=== PATIENT | male | born 1950 | race Caucasian/White ===

== ENCOUNTER 2018-02-23 16:45 | Emergency (ER) | payer MEDICARE, OTHER, SELFPAY ==
[2018-02-23 16:46] VITALS: BP 140/78; PULSE 67; RESP 16; TEMP 36.4; O2SAT 95; BMI 33.0
--- NOTE | 2018-02-23 16:49 | ED.ALLEREA ---
HPI - Allergic Reaction <Cathy Ross PA-C - Last Filed: 02/23/18 21:59> General Chief complaint: Allergic Reaction Stated complaint: right arm swollen bee sting Time Seen by Provider: 02/23/18 16:49 Source: patient Mode of arrival: ambulatory Limitations: no limitations History of Present Illness HPI narrative: This 67-year-old gentleman comes in due to wasp or hornet sting in the right hand about 5 hr ago. He states that he thought fly into his car and it stung him between his fingers. Since then, he has had increasing swelling in the hand and fingers moving up into the forearm. He states is also very itchy. He states that previously, he had a similar sting which cause swelling all the way up his arm and did not improve on its own even several days later, and he ended up needing to get a steroid shot for this. He denies any swelling elsewhere including any sensation of facial or mouth swelling. He states that he has some wheeze due to his asthma, but he does not feel short of breath or tight in the chest. He states it is difficult for him to use his hand due to swelling, but he denies any weakness or paresthesia. Denies any other complaints today. Related Data Home Medications Medication Instructions Recorded Confirmed fluticasone-salmeterol [Advair 1 puff INH BIDRT #0 11/18/10 02/23/18 Diskus] atorvastatin 40 mg tablet 40 mg PO BEDTIME 01/27/18 02/23/18 albuterol sulfate [ProAir HFA] 1 puff INHALATION PRN PRN 02/23/18 02/23/18 omeprazole 40 mg PO DAILY 02/23/18 02/23/18 telmisartan [Micardis] 80 mg PO BEDTIME 02/23/18 02/23/18 Allergies Allergy/AdvReac Type Severity Reaction Status Date / Time sulfamethoxazole Allergy Severe rash and Verified 02/23/18 16:46 [From ] swelling trimethoprim [From ] Allergy Severe rash and Verified 02/23/18 16:46 swelling Penicillins [PENICILLINS] Allergy Unknown rash and Verified 02/23/18 16:46 swelling shellfish derived AdvReac Mild Swelling Verified 02/23/18 16:46 of Lip/Tongue/Throat Review of Systems <Cathy Ross PA-C - Last Filed: 02/23/18 21:59> Review of Systems All systems reviewed & are unremarkable except as noted in HPI and below Exam <Cathy Ross PA-C - Last Filed: 02/23/18 21:59> Narrative Exam Narrative: GENERAL APPEARANCE: Patient sitting comfortably, in no distress. HEENT: PERRL, EOMI, normal oropharynx, no tongue or lip swelling NECK/THYROID: Neck supple LUNGS: Moderate generalized expiratory wheeze, no crackles, good AE. Speaks normally in complete sentences CV: Rate and rhythm regular without murmur, normal S1 and S2, no S3 or S4 DERMATOLOGIC: Right hand on the proximal lateral border of the right middle finger there is a tiny sting burak. The proximal hand is moderately edematous especially over the PIP joints to the wrist. There is some faint warm erythema on the forearm, non circumferential, extending to the mid forearm on the medial side MUSCULOSKELETAL: Strength is intact against resistance in all the right hand fingers. Skin Diver is slightly decreased secondary to edema. Full range of motion of the right wrist NEUROLOGIC: Alert and oriented, normal speech, and coordination. Initial Vital Signs Initial Vital Signs: Vital Signs Temperature 97.5 F L 02/23/18 16:46 Pulse Rate 67 02/23/18 16:46 Respiratory Rate 16 02/23/18 16:46 Blood Pressure 140/78 02/23/18 16:46 Pulse Oximetry 95 02/23/18 16:46 <Favian Gamez DO - Last Filed: 02/23/18 23:04> Initial Vital Signs Initial Vital Signs: Vital Signs Temperature 97.5 F L 02/23/18 16:46 Pulse Rate 67 02/23/18 16:46 Respiratory Rate 16 02/23/18 16:46 Blood Pressure 140/78 02/23/18 16:46 Pulse Oximetry 95 02/23/18 16:46 Course <Cathy Ross PA-C - Last Filed: 02/23/18 21:59> Additional Information: Patient declined nebulizer treatment while here stating that he he can do this at home and his asthma does not feel worse. He was given a single injection of Kenalog based on current reaction and the history described. He was not given antihistamine here due to needing to drive, but will get OTC Benadryl on the way home and start this. Orders Ordered: Discontinued Medications Triamcinolone (Kenalog-40) 40 mg IM NOW ONE Stop: 02/23/18 17:25 Last Admin: 02/23/18 17:31 Dose: 40 mg Vital Signs - 8 hr 02/23/18 16:46 Temperature 97.5 F L Pulse Rate 67 Respiratory Rate 16 Blood Pressure 140/78 Pulse Oximetry 95 <Favian Gamez DO - Last Filed: 02/23/18 23:04> Orders Ordered: Discontinued Medications Triamcinolone (Kenalog-40) 40 mg IM NOW ONE Stop: 02/23/18 17:25 Last Admin: 02/23/18 17:31 Dose: 40 mg Vital Signs - 8 hr 02/23/18 16:46 Temperature 97.5 F L Pulse Rate 67 Respiratory Rate 16 Blood Pressure 140/78 Pulse Oximetry 95 Discharge Plan Departure Patient Disposition: Home Clinical Impression: Accidental wasp sting Discharge Date/Time: 02/23/18 18:17 Interventions: ED Discharge Assessment Last Done: 02/23/18 18:17 Instructions: DI for Insect Bites and Stings Activity Restrictions/Additional Instructions: We have given you a steroid injection today to help with inflammation since you needed 1 last time you got a sting like this. This will help to calm your body's immune reaction. 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 You can continue this for the next 2 or 3 days. You can increase to 50 mg if needed, but remember this may make you sleepy and not to drive. You can also use [id number] Benadryl cream if you find that is as helpful. Please try to avoid scratching as this can lead to secondary infection. Monitor as we talked about for acutely spreading redness, swelling, pain, or more systemic symptoms such as facial swelling or difficulty breathing and return to the ED right away if any Prescriptions: No Action fluticasone-salmeterol [Advair Diskus] 500 MCG/50 MCG blister with device 1 puff INH BIDRT Qty: 0 RF: 0 telmisartan [Micardis] 80 mg tablet 80 mg PO BEDTIME RF: 0 omeprazole 20 mg capsule,delayed release(DR/EC) 40 mg PO DAILY RF: 0 albuterol sulfate [ProAir HFA] 90 mcg/actuation HFA aerosol inhaler 1 puff Inhalation PRN PRN (Reason: Shortness Of Breath) RF: 0 atorvastatin [Lipitor] 40 mg tablet 40 mg PO BEDTIME RF: 0 Referrals: Greta Garcia MD [Primary Care Provider] - <Favian Gamez DO - Last Filed: 02/23/18 23:04> Cosign ED Attending Mone Attestation: I was immediately available in the department for consultation. Documentation has been reviewed. I agree with assessment and plan.
[2018-02-23] MEDS: TRIAMCINOLONE 40 MG/ML VIAL IM (17:31)
== END 2018-02-23 18:17 | disposition home or self-care (01) ==
PROVIDERS: Emergency Provider Internal Medicine; Family Provider Internal Medicine; PCP Internal Medicine
DX: T63.441A Toxic effect of venom of bees, accidental (unintentional), initial encounter (principal)
CPT/HCPCS: 96372; 99282; 99283

== ENCOUNTER 2018-04-05 21:02 | Emergency (ER) | payer OTHER, MEDICARE, SELFPAY ==
[2018-04-05 21:21] VITALS: BP 162/95; PULSE 77; RESP 16; TEMP 36.7; O2SAT 95; BMI 33.0
--- NOTE | 2018-04-05 21:23 | DI.RAD.S_ITS ---
PROCEDURE: XR KNEE LT 3V INDICATIONS: twisted knee TECHNIQUE: 3 views of the knee were acquired. COMPARISON: None. FINDINGS: Bones: Mild to moderate tricompartment osteoarthritis is noted. No fractures or dislocations. No suspicious bony lesions. Soft tissues: Small suprapatellar joint effusion is seen. No suspicious soft tissue calcifications. IMPRESSION: No acute left knee fracture or dislocation. Small joint effusion. Dictated by: Serafin Malone M.D. on 04/05/2018 at 21:45 Approved by: Serafin Malone M.D. on 04/05/2018 at 21:45
--- NOTE | 2018-04-05 23:11 | ED.LOWEXIN ---
HPI - Extremity Injury (Lower) General Chief Complaint: Extremity Injury, Lower Stated Complaint: states he tweaked his left knee Time Seen by Provider: 04/05/18 23:10 Source: patient Mode of arrival: ambulatory Limitations: no limitations History of Present Illness HPI Narrative: Patient is a 67-year-old male who presents with left knee pain. He said he injured at work 1 week ago stepping off some equipment he felt like he twisted it. No numbness or tingling. Initially a quite a bit of swelling in the joint but he has not gone down. He bought of brace at [employer] which he says has been helping. He is just still continues to have pain. Related Data Home Medications Medication Instructions Recorded Confirmed fluticasone-salmeterol [Advair 1 puff INH BIDRT #0 11/18/10 02/23/18 Diskus] atorvastatin 40 mg tablet 40 mg PO BEDTIME 01/27/18 02/23/18 albuterol sulfate [ProAir HFA] 1 puff INHALATION PRN PRN 02/23/18 02/23/18 omeprazole 40 mg PO DAILY 02/23/18 02/23/18 telmisartan [Micardis] 80 mg PO BEDTIME 02/23/18 02/23/18 Allergies Allergy/AdvReac Type Severity Reaction Status Date / Time sulfamethoxazole Allergy Severe rash and Verified 04/05/18 21:21 [From ] swelling trimethoprim [From ] Allergy Severe rash and Verified 04/05/18 21:21 swelling Penicillins [PENICILLINS] Allergy Unknown rash and Verified 04/05/18 21:21 swelling shellfish derived AdvReac Mild Swelling Verified 04/05/18 21:21 of Lip/Tongue/Throat Review of Systems Review of Systems GENERAL: Denies chills,fever HEENT: Denies throat pain RESPIRATORY: Denies dyspnea, cough, wheezing CARDIOVASCULAR: Denies chest pain, palpitations GASTROINTESTINAL: Denies nausea, vomiting MUSCULOSKELETAL: See HPI SKIN: No rash, no laceration, no pruritus NEUROLOGIC: Denies weakness, dizziness, headache, numbness 8 point review of systems is negative except for those stated above and HPI [facility] Medical History Brachial plexopathy (Chronic) Tendinopathy of left rotator cuff (Chronic) Surgical History Status post cervical spinal fusion (Resolved) Family History Other Medical history non-contributory Social History Smoking Status: Never smoker additional social history: Never smoker, no ETOH Family History Other Medical history non-contributory Social History Smoking Status: Never smoker additional social history: Never smoker, no ETOH Exam Initial Vital Signs Initial Vital Signs: Vital Signs Temperature 98.0 F 04/05/18 21:21 Pulse Rate 77 04/05/18 21:21 Respiratory Rate 16 04/05/18 21:21 Blood Pressure 162/95 H 04/05/18 21:21 Pulse Oximetry 95 04/05/18 21:21 GENERAL: Well-appearing, well-nourished and in no acute distress. CARDIOVASCULAR: peripheral pulses in tact, cap refill <2 sec RESPIRATORY: No respiratory distress, speaks in full sentences without difficulty [ABDOMEN: Soft, nontender, no guarding or rebound] EXTREMITIES: Normal range of motion, no clubbing or edema. Neurovascularly intact left knee: Knee is stable minimal effusion no erythema is NEUROLOGICAL: Cranial nerves II through XII grossly intact. Normal gait and speech. SKIN: Warm, dry, no petechiae, no rashes or lesions. Course Orders Ordered: ED Orders 04/05/18 21:23 XR knee LT 3V Stat Vital Signs - 8 hr 04/05/18 21:21 Temperature 98.0 F Pulse Rate 77 Respiratory Rate 16 Blood Pressure 162/95 H Pulse Oximetry 95 MDM - Extremity Injury (Lower) Imaging Data left knee x-ray: Radiologist's impression: PROCEDURE: XR KNEE LT 3V INDICATIONS: twisted knee TECHNIQUE: 3 views of the knee were acquired. COMPARISON: None. FINDINGS: Bones: Mild to moderate tricompartment osteoarthritis is noted. No fractures or dislocations. No suspicious bony lesions. Soft tissues: Small suprapatellar joint effusion is seen. No suspicious soft tissue calcifications. IMPRESSION: No acute left knee fracture or dislocation. Small joint effusion. Dictated by: Serafin Malone M.D. on 04/05/2018 at 21:45 Discharge Plan Departure Patient Disposition: Home Clinical Impression: Left knee sprain Qualifiers: Encounter type: initial encounter Involved ligament of knee: unspecified ligament Qualified Code(s): S83.92XA - Sprain of unspecified site of left knee, initial encounter Discharge Date/Time: 04/05/18 23:33 Interventions: ED Discharge Assessment Last Done: 04/05/18 23:33 Instructions: DI for Knee Sprain Activity Restrictions/Additional Instructions: *You have been diagnosed with left knee sprain *What to do: where knee brace while active during the day. His increase activity as tolerated. May require MRI, physical therapy and orthopedic referral if it does not improved. All of these things can be is throughout your PCP *Continue to take medications as directed ibuprofen 600 mg every 8 hr if needed for pain or swelling *Follow up with your primary care provider in 2-3 days *Return to ER if you should have increasing numbness tingling weakness, any new, worsening or concerning symptoms Prescriptions: No Action fluticasone-salmeterol [Advair Diskus] 500 MCG/50 MCG blister with device 1 puff INH BIDRT Qty: 0 RF: 0 telmisartan [Micardis] 80 mg tablet 80 mg PO BEDTIME RF: 0 omeprazole 20 mg capsule,delayed release(DR/EC) 40 mg PO DAILY RF: 0 albuterol sulfate [ProAir HFA] 90 mcg/actuation HFA aerosol inhaler 1 puff Inhalation PRN PRN (Reason: Shortness Of Breath) RF: 0 atorvastatin [Lipitor] 40 mg tablet 40 mg PO BEDTIME RF: 0 Referrals: Greta Garcia MD [Primary Care Provider] - Americo Villalpando DO [Non-Staff] -
== END 2018-04-05 23:33 | disposition home or self-care (01) ==
PROVIDERS: Emergency Provider Emergency Medicine; Family Provider Internal Medicine; PCP Internal Medicine
DX: S83.92XA Sprain of unspecified site of left knee, initial encounter (principal); W18.43XA Slipping, tripping and stumbling without falling due to stepping from one level to another, initial encounter; Y99.0 Civilian activity done for income or pay
CPT/HCPCS: 73562; 99282; 99283

== ENCOUNTER 2018-06-06 07:03 | Outpatient (CLI) | payer MEDICARE, OTHER, SELFPAY ==
[2018-06-06] VITALS (8 sets, daily range): BP systolic 137–192; BP diastolic 71–101; PULSE 58–70; RESP 16–18; TEMP 36.2; O2SAT 93–97
--- NOTE | 2018-06-06 07:08 | DI.RAD.S_ITS ---
PROCEDURE: XR CERVICAL SPINE 4V OR 5V INDICATIONS: RADICULOPATHY TECHNIQUE: 5 views of the cervical spine acquired. COMPARISON: None. FINDINGS: Bones: No fractures or dislocations to the T1 level. Oblique images demonstrate no bony foraminal stenoses except symmetric foraminal stenosis from C5-C7, the levels of prior anterior fusion and plating. The foraminal stenosis appears slightly greater on the right than the left, from facet osteoarthritis. Soft tissues: No prevertebral soft tissue swelling. IMPRESSION: Prior anterior fusion plating from C5-C7, without evidence of device loosening or disruption. Facet osteoarthritis through this area is slightly greater on the right than the left on the oblique views, but no acute disease is found. There is potential for nerve root impingement is seen at C5-6 and to a slightly lesser degree C6-7 and C7-T1. Dictated by: Williams Paniagua M.D. on 06/06/2018 at 9:49 Approved by: Williams Paniagua M.D. on 06/06/2018 at 9:51
--- NOTE | 2018-06-06 07:08 | DI.RAD.S_ITS ---
PROCEDURE: PAIN C/T FACET INJ/BLK 1ST L INDICATIONS: 53137- Right C4/5, C7/T1 FINDINGS: Fluoroscopic spot filming was performed to verify placement of spinal needles at the right C4-5 and right C7-T1 facet joint margins level(s), as labeled on the films. Appropriate location(s) of the needle tip(s) was confirmed by injection of iodinated contrast. IMPRESSION: Successful right-sided facet joint margin localization at the C4-5 and C7-T1 facets. Dictated by: Williams Paniagua M.D. on 06/06/2018 at 10:02 Approved by: Williams Paniagua M.D. on 06/06/2018 at 10:02
[2018-06-06] MEDS: MIDAZOLAM 5 MG/5 ML VIAL IV (08:50)
--- NOTE | 2018-06-06 09:03 | PC.NURSE ---
Pt tolerated procedure well. Able to get off the table with standby assist. Transferred pt to preprocedure room via wheelchair for continued monitoring with Bea KIRKLAND.
--- NOTE | 2018-06-06 09:11 | P.PCN_ITS ---
Procedures Date/Time Date of procedure: 06/06/18 Time of procedure: 09:07 General Procedure description: PREOP DIAGNOSIS 1. FACET ARTHROPATHY 2. AXIAL NECK PAIN POST OP DIAGNOSIS 1. FACET ARTHROPATHY 2. AXIAL NECK PAIN PROCEDURES 1. FLUOROSCOPICALLY GUIDED, CONTRAST-CONTROLLED RIGHT C4/5 AND C7/T1 FACET JOINT INJECTIONS WITH CONSCIOUS SEDATION. PHYSICIAN: Orestes Torres, DO INDICATIONS Nadia is referred by Dr. Garcia for treatment of Axial Neck Pain DESCRIPTION OF PROCEDURE Fluoroscopically guided, contrast-controlled right C4/5 and C7/T1 facet joint injections with conscious sedation. Following denial of allergy and review of potential side effects and complications, including, but not necessarily limited to, infection, allergic reaction, local tissue breakdown, stroke, temporary or permanent nerve injury and paralysis, the patient indicated that the patient understood and agreed to proceed. An informed consent document was signed by the patient, witnessed by a nurse, and placed in the patient's chart. Additionally, other treatment options including medications, modalities, and physical therapy were reviewed with the patient. After review of previous anaesthesic history and IV conscious sedation the p atient was deemed safe to proceed with todays procedure with IV conscious sedation as ASA class II designation. Safety time-out was performed to confirm patient ID, procedure to be performed and site of procedure. IV sedation was accomplished with a combination of 3mg was administered by the RN after DO order, titrated to patient comfort during the course of the procedure while the patient remained responsive to all verbal commands In the prone position, following sterile prep and drape of the cervical spine region, the posterior aspect of the right C4/5 and C7/T1 facet joints were identified fluoroscopically. The skin was anesthetized via a 25-gauge 1.5-inch needle with 1% lidocaine solution into the corresponding facet joints. At this point, a 25-gauge 2.5-inch spinal needle was atraumatically introduced and advanced under fluoroscopic guidance into the corresponding facet joints. Following negative aspiration, injections of approximately 0.2-cc of Isovue 200 confirmed interarticular placement without vascular uptake. At this point, a total of 1 cc including 0.5 cc or 5 mg of dexamethasone combined with 0.5 cc of 1% lidocaine solution was injected without complication into each of the corresponding facet joints. The procedure tolerated the procedure well without signs or symptoms of complications prior to transfer to the recovery area continued monitoring without incident. The patient was then transferred to the recovery area where they were observed for an appropriate period of time after the injection. The patient reported a VAS score of 7 prior to the procedure and a post- procedure VAS of 0. Total Fluoroscopy Time: 20.5 seconds Total Conscious Sedation Time: 24 min POST OP INSTRUCTIONS They were provided a Pain Log to continue to record their response to the target-specific procedure prior to their follow-up visit with their referring physician. Additionally, specific post-injection care instructions and a contact number to our office were provided if concerns arise regarding possible complications associated with the procedure are suspected. Orestes Torres, Complications: none
[2018-06-06] MEDS: IOPAMIDOL 15 ML VIAL 3 ML INJ (09:12)
[2018-06-06] MEDS: DEXAMETHASONE 10 MG/ML VIAL 20 MG INJ (09:13)
[2018-06-06] MEDS: BUPIVACAINE 0.5% (PF) VIAL 2 ML INJ (09:13)
--- NOTE | 2018-06-07 12:31 | PC.NURSE ---
Follow up call post procedure Right C4/5, C7/T1 Facet Joint Injection. Left message as pt did not answer the phone.
== END 2018-06-06 09:40 | disposition home or self-care (01) ==
LOC: RAD 07:05
PROVIDERS: Family Provider Internal Medicine; PCP Internal Medicine; Visit Provider Physical Medicine & Rehabilitation
DX: M47.812 Spondylosis without myelopathy or radiculopathy, cervical region (principal); M19.90 Unspecified osteoarthritis, unspecified site; Z98.1 Arthrodesis status
CPT/HCPCS: 64490; 72050; 99152; J1100; J2250; J3010

== ENCOUNTER → 2018-12-01 16:44 | Outpatient (CLI) | payer MEDICARE, OTHER, SELFPAY ==
--- NOTE | 2018-12-08 15:53 | PM.PFT.1 ---
Pulmonary Function Test Referral & Results Date Patient Seen: 12/01/18 Requesting provider: Greta Garcia Indication: Asthma Results: The spirometry demonstrates an FVC of 3.91 L which is 86% of predicted. The FEV1 was measured at 2.73 L which is 81% of predicted. The FEV1/FVC ratio was 70 which is 94% of predicted. Following the administration of bronchodilator there was an 18% improvement in FEF 25-75%. Lung volumes show an SVC of 4.10 L which is 88% of predicted. The diffusing capacity was measured at 27.32 which is 84% of predicted. No hemoglobin value was provided, so no correction for potential anemia could be made, if appropriate. The maximum voluntary ventilation was probably reduced although difficult to interpret given the bronchospasm it seem to induce and difficulty on the part of the patient Interpretation: This study demonstrates mild obstructive lung disease consistent with a diagnosis of asthma with limited evidence of benefit following bronchodilator administration, what improvement was seen was in small airway flow based on improvement in FEF 25-75% Patient's lung volumes are probably normal as is diffusing capacity Compared to PFTs performed in July 2009, current spirometry is much improved with improvement in FEV1 and lung volumes Clinical correlation suggested
== END ==
PROVIDERS: Family Provider Internal Medicine; PCP Internal Medicine; Visit Provider Internal Medicine
DX: J45.998 Other asthma (principal)
CPT/HCPCS: 94060; 94726; 94729

== ENCOUNTER 2019-05-03 10:01 | Emergency (ER) | payer MEDICARE, OTHER, SELFPAY ==
[2019-05-03 10:05] VITALS: BP 135/88; PULSE 79; RESP 18; TEMP 36.7; O2SAT 97
--- NOTE | 2019-05-03 11:16 | DI.RAD.S_ITS ---
PROCEDURE: XR HIP W PEL IF DONE RT 2V INDICATIONS: pain TECHNIQUE: AP pelvis with lateral view(s) of the right hip(s). COMPARISON: None. FINDINGS: Bones: Patient is status post bilateral hip arthroplasty. No fractures or dislocations. No gross hardware loosening or failure. Pelvic ring appears intact. No suspicious bony lesions. Soft tissues: The visualized bowel gas pattern is normal. No suspicious soft tissue calcifications. IMPRESSION: No gross acute pelvic or hip fracture. No hip dislocation. Prior bilateral total hip arthroplasty. No gross hardware complication. Dictated by: Serafin Malone M.D. on 05/03/2019 at 12:14 Approved by: Serafin Malone M.D. on 05/03/2019 at 12:15
--- NOTE | 2019-05-03 11:16 | DI.RAD.S_ITS ---
PROCEDURE: XR LUMBAR SPINE 2-3V INDICATIONS: pain TECHNIQUE: 3 views of the lumbar spine were acquired. COMPARISON: None. FINDINGS: Bones: 5 fat-xcy-yrojgat vertebrae are present. There is grade 1 anterolisthesis of L4 on L5. Minimal retrolisthesis at L1-2 level is also seen. Degenerative endplate changes throughout lower thoracic and lumbar spine is seen with bilateral facet arthrosis at L4-5 and L5-S1 levels. No vertebral body compression fractures. No suspicious bony lesions. Soft tissues: Overlying bowel gas pattern is normal. No suspicious soft tissue calcifications. IMPRESSION: No gross acute lumbar spine fracture or dislocation. Degenerative disc disease throughout lumbar spine. Minimal retrolisthesis at L1-2 level and grade one anterolisthesis at L4-5 level. Dictated by: Serafin Malone M.D. on 05/03/2019 at 12:12 Approved by: Serafin Malone M.D. on 05/03/2019 at 12:14
[2019-05-03] MEDS: CYCLOBENZAPRINE 10 MG TABLET PO (11:25)
[2019-05-03] MEDS: KETOROLAC 60 MG/2 ML VIAL 30 MG IM (11:26)
[2019-05-03] MEDS: LIDOCAINE PATCH 1 EACH ADH..PATCH TOP (11:26)
[2019-05-03] MEDS: HYDROCODONE/ACET 5/325 TABLET 1 TAB PO (12:54)
[2019-05-03 12:56] VITALS: BP 182/99; PULSE 81; RESP 18; O2SAT 99
--- NOTE | 2019-05-03 13:38 | ED_ITS ---
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 He states that he was bending over yesterday pick something off the ground any felt sudden right sided lower back pain radiating around to his hip. He states the pain shoots down the back of his right leg and feels like electricity. He has been trying Tylenol and Motrin at home. He took Motrin last at 5:00 a.m.. He denies any incontinence of bowel, incontinence of bladder saddle anesthesia. He denies any numbness or tingling other than down the back of his right leg. He is concerned that he might have sciatica. He denies any weakness but states that his right leg feels weak at times Related Data Home Medications Medication Instructions Recorded Confirmed fluticasone propion-salmeterol 1 puff INH BIDRT #0 11/18/10 05/03/19 [Advair Diskus] atorvastatin 40 mg tablet 40 mg PO BEDTIME 01/27/18 05/03/19 albuterol sulfate [ProAir HFA] 1 puff INHALATION PRN PRN 02/23/18 05/03/19 omeprazole 40 mg PO DAILY 02/23/18 05/03/19 acetaminophen 500 mg tablet 1,000 mg PO TID PRN tab 12/25/18 05/03/19 amlodipine 5 mg PO DAILY 05/03/19 05/03/19 gabapentin 600 mg PO BEDTIME 05/03/19 05/03/19 telmisartan [Micardis] 80 mg PO DAILY 05/03/19 05/03/19 tiotropium bromide [Spiriva with 18 mcg INHALATION DIRECTED 05/03/19 05/03/19 HandiHaler] Previous Rx's Medication Instructions Recorded meloxicam 7.5 mg tablet 7.5 mg PO DAILY #30 tab 12/25/18 cyclobenzaprine 10 mg PO TID PRN #20 tab 05/03/19 hydrocodone-acetaminophen [Andrews] 1 tab PO Q4-6H PRN #10 tab 05/03/19 ketorolac 10 mg PO TID PRN #14 tab 05/03/19 lidocaine 1 patch TOP DAILY PRN #15 each 05/03/19 Allergies Allergy/AdvReac Type Severity Reaction Status Date / Time sulfamethoxazole Allergy Severe rash and Verified 05/03/19 10:11 [From ] swelling trimethoprim [From ] Allergy Severe rash and Verified 05/03/19 10:11 swelling Penicillins [PENICILLINS] Allergy Unknown rash and Verified 05/03/19 10:11 swelling shellfish derived AdvReac Mild Swelling Verified 05/03/19 10:11 of Lip/Tongue/Throat Review of Systems <NGUYỄN Almonte - Last Filed: 05/03/19 14:05> Review of Systems Narrative: GENERAL: Denies chills, fatigue, malaise, fever, sweats. HEENT: Denies sinus pain, ear pain, sore throat, difficulty swallowing, dizziness. RESPIRATORY: Denies dyspnea, cough, wheezing, hemoptysis, sputum. CARDIOVASCULAR: Denies chest pain, palpitations, orthopnea, edema, GASTROINTESTINAL: Denies nausea, vomiting, abdominal pain, diarrhea, constipation, melena. : Denies dysuria, frequency, incontinence, hematuria, urinary retention. MUSCULOSKELETAL: See HP SKIN: Denies rash, skin lesions, or other NEUROLOGIC: Denies weakness, headache, numbness, change in speech, confusion, seizures, incoordination. PSYCHIATRIC: No concerning psychosocial issues. 12 point review of systems is negative except for those stated above Patient History <NGUYỄN Almonte - Last Filed: 05/03/19 14:05> Medical History Brachial plexopathy (Chronic) Chronic radicular cervical pain (Chronic) Tendinopathy of left rotator cuff (Chronic) Surgical History Status post cervical spinal fusion (Resolved) Family History Other Medical history non-contributory Social History Smoking Status: Never smoker additional social history: Never smoker, no ETOH Smoking Status: Never smoker alcohol intake frequency: holidays/special occasions only Substance Use Type: does not use Exam <NGUYỄN Almonte - Last Filed: 05/03/19 14:05> Narrative Exam Narrative: GENERAL: This is a well-nourished, well-developed patient, no acute distress HEAD: Atraumatic. Normocephalic. No temporal or scalp tenderness. EYES: Pupils equal round and reactive. Extraocular motions intact. No scleral icterus. No injection or drainage. ENT: Nose without bleeding, purulent drainage or septal hematoma. Throat without erythema, tonsillar hypertrophy or exudate. Uvula midline. Airway patent. NECK: Trachea midline. No JVD or lymphadenopathy. Supple, nontender, no meningeal signs. CARDIOVASCULAR: Regular rate and rhythm RESPIRATORY: Clear to auscultation. Breath sounds equal bilaterally. No wheezes, rales, or rhonchi. GASTROINTESTINAL: Abdomen soft, non-tender, nondistended. No hepato- splenomegaly, or palpable masses. No guarding. EXTREMITIES: No clubbing, cyanosis, or edema. No joint tenderness, effusion, or edema noted. BACK: No palpable deformity or crepitance. No pain to cervical or thoracic palpation. Pain to lumbar spine palpation, pain to right-sided lumbar spinal palpation. NEURO: AOx3. Stable gait. Strength is equal upper extremities bilaterally. Clear speech. SKIN: No rash or erythema on visible skin Initial Vital Signs Initial Vital Signs: Vital Signs Temperature 98.1 F 05/03/19 10:05 Pulse Rate 79 05/03/19 10:05 Respiratory Rate 18 05/03/19 10:05 Blood Pressure 135/88 05/03/19 10:05 Pulse Oximetry 97 05/03/19 10:05 <Antonio Hernandez MD - Last Filed: 05/04/19 07:50> Initial Vital Signs Initial Vital Signs: Vital Signs Temperature 98.1 F 05/03/19 10:05 Pulse Rate 79 05/03/19 10:05 Respiratory Rate 18 05/03/19 10:05 Blood Pressure 135/88 05/03/19 10:05 Pulse Oximetry 97 05/03/19 10:05 Scores <DIMPLE Almonte-BC - Last Filed: 05/03/19 14:05> GCS Bakari coma scale eye opening: Spontaneous Bakari coma scale verbal response: Orientated Bakari coma scale motor response: Obey commands Bakari coma scale total score: 15 Course <DIMPLE Almonte-BC - Last Filed: 05/03/19 14:05> Orders Ordered: Discontinued Medications Hydrocodone Bitart/Acetaminophen (Andrews 5/325) 1 tab PO NOW ONE Stop: 05/03/19 12:44 Last Admin: 05/03/19 12:54 Dose: 1 tab Documented by: TUNDEAPO Cyclobenzaprine HCl (Flexeril) 10 mg PO NOW ONE Stop: 05/03/19 11:17 Last Admin: 05/03/19 11:25 Dose: 10 mg Documented by: TUNDEAPO Ketorolac Tromethamine (Toradol) 30 mg IM NOW ONE Stop: 05/03/19 11:19 Last Admin: 05/03/19 11:26 Dose: 30 mg Documented by: SCANAPO Lidocaine (Lidoderm) 1 each TOP NOW ONE Stop: 05/03/19 11:17 Last Admin: 05/03/19 11:26 Dose: 1 each Documented by: CHANDNI Vital Signs Vital signs: Vital Signs - 8 hr 05/03/19 10:05 05/03/19 12:56 Temperature 98.1 F Pulse Rate 79 81 Respiratory Rate 18 18 Blood Pressure 135/88 Blood Pressure [Left Arm] 182/99 H Pulse Oximetry 97 99 <Antonio Hernandez MD - Last Filed: 05/04/19 07:50> Orders Ordered: Discontinued Medications Hydrocodone Bitart/Acetaminophen (Andrews 5/325) 1 tab PO NOW ONE Stop: 05/03/19 12:44 Last Admin: 05/03/19 12:54 Dose: 1 tab Documented by: SCANAPO Cyclobenzaprine HCl (Flexeril) 10 mg PO NOW ONE Stop: 05/03/19 11:17 Last Admin: 05/03/19 11:25 Dose: 10 mg Documented by: TUNDEAPO Ketorolac Tromethamine (Toradol) 30 mg IM NOW ONE Stop: 05/03/19 11:19 Last Admin: 05/03/19 11:26 Dose: 30 mg Documented by: SCANAPO Lidocaine (Lidoderm) 1 each TOP NOW ONE Stop: 05/03/19 11:17 Last Admin: 05/03/19 11:26 Dose: 1 each Documented by: SCANAPO Vital Signs Vital signs: Vital Signs - 8 hr 05/03/19 10:05 05/03/19 12:56 Temperature 98.1 F Pulse Rate 79 81 Respiratory Rate 18 18 Blood Pressure 135/88 Blood Pressure [Left Arm] 182/99 H Pulse Oximetry 97 99 MDM - Back Pain/Injury <NGUYỄN Almonte - Last Filed: 05/03/19 14:05> Imaging Data Lumbar x-ray: Radiologist's Impression: [address] [place] [id number] XRay Report Signed Patient: Nadia Agee [facility]#: [id number] : [id number] Age/Sex: 68 / MDate of Service: 05/03/19 Loc: ED Accession Number: [id number] Procedure: XR lumbar spine 2-3V Ordering Provider: Della Horner PROCEDURE: XR LUMBAR SPINE 2-3V INDICATIONS: pain TECHNIQUE: 3 views of the lumbar spine were acquired. COMPARISON: None. FINDINGS: Bones: 5 [id number] vertebrae are present. There is grade 1 anterolisthesis of L4 on L5. Minimal retrolisthesis at L1-2 level is also seen. Degenerative endplate changes throughout lower thoracic and lumbar spine is seen with bilateral facet arthrosis at L4-5 and L5-S1 levels. No vertebral body compression fractures. No suspicious bony lesions. Soft tissues: Overlying bowel gas pattern is normal. No suspicious soft tissue calcifications. IMPRESSION: No gross acute lumbar spine fracture or dislocation. Degenerative disc disease throughout lumbar spine. Minimal retrolisthesis at L1-2 level and grade one anterolisthesis at L4-5 level. Dictated by: Serafin Malone M.D. on 05/03/2019 at 12:12 Approved by: Serafin Malone M.D. on 05/03/2019 at 12:14 Hip x-ray: Radiologist's Impression: [address] [place] [id number] XRay Report Signed Patient: Ndaia Agee [facility]#: [id number] : [id number] Age/Sex: 68 / MDate of Service: 05/03/19 Loc: ED Accession Number: [id number] Procedure: XR hip w pel if done RT 2V Ordering Provider: Della Horner PROCEDURE: XR HIP W PEL IF DONE RT 2V INDICATIONS: pain TECHNIQUE: AP pelvis with lateral view(s) of the right hip(s). COMPARISON: None. FINDINGS: Bones: Patient is status post bilateral hip arthroplasty. No fractures or dislocations. No gross hardware loosening or failure. Pelvic ring appears intact. No suspicious bony lesions. Soft tissues: The visualized bowel gas pattern is normal. No suspicious soft tissue calcifications. IMPRESSION: No gross acute pelvic or hip fracture. No hip dislocation. Prior bilateral total hip arthroplasty. No gross hardware complication. Dictated by: Serafin Malone M.D. on 05/03/2019 at 12:14 Approved by: Serafin Malone M.D. on 05/03/2019 at 12:15 MDM Narrative Medical decision making narrative: The patient is a 68-year-old male who presents with a chief complaint of right-sided lower back pain radiating down his right leg since yesterday. His exam and history correlate with sciatica. He feels improved with the above-stated medications. He has no red flag symptoms of incontinence of bowel, incontinence of bladder saddle anesthesia which helps rule out cauda and states that he understands these return precautions. He plans on following up with primary care provider in the next few days. He states understanding of return precautions the emergency department. Discussed to not combine any other NSAIDs with Toradol, the Flexeril can be sedating, that Andrews can be constipating and sedating. Encouraged rest and work note given. Patient has no questions or concerns upon discharge and states understanding of return precautions as well of follow-up care. Discharge Plan Departure Patient Disposition: Home Clinical Impression: Acute back pain with sciatica Qualifiers: Laterality: right Qualified Code(s): M54.41 - Lumbago with sciatica, right side Discharge Date/Time: 05/03/19 13:55 Instructions: DI for Back Pain With Sciatica, DI for Back Spasm, DI for Back Strain or Sprain Activity Restrictions/Additional Instructions: Thank you for trusting us with your care today. I sent for prescriptions to help your pain to [facility] [place] I have given you a prescription of Toradol. This is an NSAID. Do not combine it with other NSAIDs such as Aleve or ibuprofen or Mobic or meloxicam. I suggest taking it with some food, as it can irritate your stomach. I have given you a prescription of a narcotic for pain. Be aware that this can be constipating and sedating. I encouraged taking with a stool softener, pushing fluids and fiber. Do not take and drive, operate heavy machinery, etc. Do not combine it with any other sedating substances such as alcohol. The combination of narcotics and alcohol and/or other sedatives can be lethal. Please be aware that we do not provide refills of controlled substances in the emergency department. Please follow up with your primary care provider. Please remember that cyclobenzaprine can also be sedating. If lidocaine patches are cost prohibitive, they are available [id number] Please monitor for any incontinence of bowel, incontinence of bladder saddle anesthesia or numbness in her groin. Please come back to the emergency department go to the nearest emergency department if that occurs. Please follow-up with primary care provider in the next few days. I have given you a note for work. Please stay home and rest. Prescriptions: New hydrocodone-acetaminophen [Andrews] 5-325 mg tablet 1 tab PO Q4-6H PRN (Reason: pain) Qty: 10 RF: 0 lidocaine 5 % adhesive patch,medicated 1 patch TOP DAILY PRN (Reason: pain) Qty: 15 RF: 0 cyclobenzaprine 10 mg tablet 10 mg PO TID PRN (Reason: muscle spasm) Qty: 20 RF: 0 ketorolac 10 mg tablet 10 mg PO TID PRN (Reason: pain) Qty: 14 RF: 0 No Action fluticasone propion-salmeterol [Advair Diskus] 500 MCG/50 MCG blister with device 1 puff INH BIDRT Qty: 0 RF: 0 omeprazole 20 mg capsule,delayed release(DR/EC) 40 mg PO DAILY RF: 0 albuterol sulfate [ProAir HFA] 90 mcg/actuation HFA aerosol inhaler 1 puff Inhalation PRN PRN (Reason: Shortness Of Breath) RF: 0 amlodipine 5 mg tablet 5 mg PO DAILY RF: 0 telmisartan [Micardis] 80 mg tablet 80 mg PO DAILY RF: 0 Spiriva with HandiHaler 18 mcg capsule, w/inhalation device 18 mcg INHALATION DIRECTED RF: 0 gabapentin 300 mg capsule 600 mg PO BEDTIME RF: 0 atorvastatin [Lipitor] 40 mg tablet 40 mg PO BEDTIME RF: 0 acetaminophen [Tylenol Extra Strength] 500 mg tablet 1,000 mg PO TID PRN (Reason: pain) RF: 0 meloxicam 7.5 mg tablet 7.5 mg PO DAILY Qty: 30 RF: 5 Referrals: Alvina Beth [Primary Care Provider] - Stand Alone Forms: Work Release Note
== END 2019-05-03 13:55 | disposition home or self-care (01) ==
PROVIDERS: Emergency Provider Nurse Practitioner Family; Family Provider Internal Medicine; PCP Internal Medicine
DX: M54.41 Lumbago with sciatica, right side (principal); M25.551 Pain in right hip
CPT/HCPCS: 72100; 73502; 96372; 99283; 99284; J1885

== ENCOUNTER 2019-09-05 19:55 | Emergency (ER) | payer MEDICARE, OTHER, SELFPAY ==
--- NOTE | 2019-09-05 20:03 | ED.CHESTPAIN ---
HPI - Chest Pain General Chief Complaint: Chest Pain Stated Complaint: CHEST PAIN Time Seen by Provider: 09/05/19 19:55 Source: patient and family Mode of arrival: Ambulatory Limitations: no limitations History of Present Illness HPI narrative: 68-year-old male nonsmoker with history of hypertension and hyperlipidemia presents with a chief complaint of a sharp and stabbing retrosternal chest pain that seems to be worse with a deep breath. He states his symptoms started at about 2:00 p.m. today and persist. At maximum his pain is about a 7/10. He tried no medications prior to his arrival. He denies associated symptoms such as dizziness, weakness, lightheadedness, shortness of breath, cough, hemoptysis. He denies any exertional worsening of his symptoms. He denies any history of cancer, recent long distance travel or blood clot. Denies any history of the same. His last stress test was in 2004. He denies any runny nose, sore throat nor fever or chills. He denies exposure to persons known or suspected to have COVID-19 MD complaint: chest pain Onset (ago): hour(s) Duration: constant Onset: during rest Pain location: substernal Severity: moderate Severity scale (1-10): 7 Quality: sharp Pain radiation: none Relieving factors: nothing Exacerbating factors: inspiration Treatments prior to arrival chest pain: none Related Data Home Medications Medication Instructions Recorded Confirmed fluticasone propion-salmeterol 1 puff INH BIDRT #0 11/18/10 05/03/19 [Advair Diskus] atorvastatin 40 mg tablet 40 mg PO BEDTIME 01/27/18 05/03/19 albuterol sulfate [ProAir HFA] 1 puff INHALATION PRN PRN 02/23/18 05/03/19 omeprazole 40 mg PO DAILY 02/23/18 05/03/19 acetaminophen 500 mg tablet 1,000 mg PO TID PRN tab 12/25/18 05/03/19 amlodipine 5 mg PO DAILY 05/03/19 05/03/19 gabapentin 600 mg PO BEDTIME 05/03/19 05/03/19 telmisartan [Micardis] 80 mg PO DAILY 05/03/19 05/03/19 tiotropium bromide [Spiriva with 18 mcg INHALATION DIRECTED 05/03/19 05/03/19 HandiHaler] Previous Rx's Medication Instructions Recorded meloxicam 7.5 mg tablet 7.5 mg PO DAILY #30 tab 12/25/18 cyclobenzaprine 10 mg PO TID PRN #20 tab 05/03/19 hydrocodone-acetaminophen [[place]] 1 tab PO Q4-6H PRN #10 tab 05/03/19 ketorolac 10 mg PO TID PRN #14 tab 05/03/19 lidocaine 1 patch TOP DAILY PRN #15 each 05/03/19 Allergies Allergy/AdvReac Type Severity Reaction Status Date / Time sulfamethoxazole Allergy Severe rash and Verified 09/05/19 20:09 [From ] swelling trimethoprim [From ] Allergy Severe rash and Verified 09/05/19 20:09 swelling Penicillins [PENICILLINS] Allergy Unknown rash and Verified 09/05/19 20:09 swelling shellfish derived AdvReac Mild Swelling Verified 09/05/19 20:09 of Lip/Tongue/Throat Review of Systems Constitutional Constitutional: Denies chills, Denies fatigue, Denies fever(s), Denies frequent falls, Denies lethargy and Denies weakness Eyes Eyes: Denies change in vision, Denies eye discharge, Denies irritation and Denies loss of vision ENT Ears, Nose, Mouth, and Throat: Denies change in voice, Denies dizziness, Denies neck pain, Denies sore throat and Denies throat swelling Cardiovascular Cardiovascular: Reports chest pain, Denies irregular heart rhythm, Denies lightheadedness, Denies palpitations, Denies dyspnea, Denies dyspnea on exertion and Denies orthopnea Respiratory Respiratory: Denies cough, Denies dyspnea, Denies dyspnea on exertion and Denies wheezing Gastrointestinal Gastrointestinal: Denies abdominal pain, Denies change in bowel habits, Denies diarrhea, Denies nausea and Denies vomiting Musculoskeletal Musculoskeletal: Denies neck pain and Denies numbness Integumentary/Breasts Skin/Breast: Denies pruritus, Denies erythema, Denies rash and Denies wounds Neurologic Neurologic: Denies behavioral changes, Denies confusion, Denies dizziness, Denies frequent falls, Denies loss of vision, Denies numbness and Denies weakness Psychiatric Psychiatric: Denies anxiety, Denies behavioral changes, Denies confusion, Denies depression, Denies homicidal ideation and Denies suicidal ideation Endocrine Endocrine: Denies fatigue, Denies flushing and Denies palpitations Hematologic/Lymphatic Hematologic/Lymphatic: Denies easy bruising Allergic/Immunologic Allergic/Immunologic: Denies urticaria, Denies throat swelling and Denies wheezing Patient History Medical History Brachial plexopathy (Chronic) Chronic radicular cervical pain (Chronic) Tendinopathy of left rotator cuff (Chronic) Surgical History Status post cervical spinal fusion (Resolved) Family History Other Medical history non-contributory Social History Smoking Status: Never smoker additional social history: Never smoker, no ETOH Smoking Status: Never smoker alcohol intake frequency: holidays/special occasions only Substance Use Type: does not use Exam Narrative Exam Narrative: GENERAL: [68] year old patient appears stated age. Well-nourished, well-developed patient, in mild distress. HEAD: Atraumatic. Normocephalic. EYES: Pupils equal round and reactive. Extraocular motions intact. No scleral icterus. No injection or drainage. ENT: Nose without bleeding, purulent drainage. Throat without erythema, tonsillar hypertrophy or exudate. Airway patent. NECK: Trachea midline. Non tender CARDIOVASCULAR: Regular rate and rhythm without murmurs, gallops, or rubs. RESPIRATORY: Clear to auscultation. Breath sounds equal bilaterally. No wheezes, rales, or rhonchi. GASTROINTESTINAL: Abdomen soft, non-tender, nondistended. EXTREMITIES: No edema or joint tenderness. BACK: Nontender without deformity or crepitance. No flank tenderness. NEURO: AOx3. SKIN: No rash or erythema of visible areas Initial Vital Signs Initial Vital Signs: Vital Signs Pulse Rate 78 09/05/19 20:09 Respiratory Rate 20 09/05/19 20:09 Blood Pressure 178/82 H 09/05/19 20:09 Pulse Oximetry 96 09/05/19 20:09 Course Orders Ordered: ED Orders 09/05/19 20:05 Complete Blood Count AUTO DIFF Stat Comprehensive Metabolic Panel Stat D Dimer Stat Lipase Stat NT-proBNP (BNP-Adult 18+) Stat Partial Thromboplastin Time Stat Prothrombin Time INR Stat Troponin & CK Cardiac Panel Stat 09/05/19 20:06 XR chest 1V Stat 09/05/19 22:01 Troponin I Stat Discontinued Medications Aspirin (Aspirin Chew) 324 mg PO NOW ONE Stop: 09/05/19 20:07 Last Admin: 09/05/19 20:13 Dose: 324 mg Documented by: DERIAN Sodium Chloride (Normal Saline 0.9%) 1,000 mls @ 150 mls/hr IV CONT JEANIE Last Infusion: 09/05/19 22:54 Dose: 0 mls/hr Documented by: Admin: 09/05/19 20:14 Dose: 150 mls/hr Documented by: DERIAN Ketorolac Tromethamine (Toradol) 15 mg IV NOW ONE Stop: 09/05/19 20:07 Last Admin: 09/05/19 20:13 Dose: 15 mg Documented by: DERIAN Vital Signs Vital signs: Vital Signs - 8 hr 09/05/19 20:09 09/05/19 20:20 09/05/19 21:20 Temperature 98.2 F Pulse Rate 78 66 Respiratory Rate 20 31 H Blood Pressure 178/82 H 138/65 Pulse Oximetry 96 96 09/05/19 22:55 Temperature Pulse Rate 61 Respiratory Rate 18 Blood Pressure 146/78 H Pulse Oximetry 98 MDM - Chest Pain Lab Data Result diagrams: 09/05/19 20:05 09/05/19 20:05 Labs: Lab Results 09/05/19 09/05/19 09/05/19 Range/Units 20:05 20:05 20:05 WBC 5.6 (4.5-11.0) X10^3/uL RBC 5.16 (4.5-5.9) X10^6/uL Hgb 15.0 (13.5-17.5) g/dL Hct 43.6 (41-53) % MCV 84.4 (80-100) fL MCH 29.2 (26-34) PG MCHC 34.5 (30-36) % RDW 13.6 (11.6-14.8) % Plt Count 166 (150-400) X10^3/uL Neut % (Auto) 65.7 (50-75) % Lymph % (Auto) 20.1 L (25-40) % Steele % (Auto) 9.6 (3-14) % Eos % (Auto) 3.8 (2-4) % Baso % (Auto) 0.8 (0-2) % Neut # (Auto) 3700 (0126-4296) /uL Lymph # (Auto) 1100 (0413-7153) /uL Steele # (Auto) 500 (0-900) /uL Eos # (Auto) 200 (0-450) /uL Baso # (Auto) 0 (0-100) /uL PT 11.2 (10.1-12.7) SECONDS INR 1.0 (0.9-1.3) APTT 28 (26.4-36.2) SECONDS D-Dimer < 200 (<230) ng/mL Sodium 138 (137-145) mmol/L Potassium 3.8 (3.4-5.1) mmol/L Chloride 104 (98-107) mmol/L Carbon Dioxide 28 (22-32) mmol/L BUN 15 (9-20) mg/dL Creatinine 0.84 (0.66-1.25) mg/dL Estimated GFR > 60.0 (>60) mL/min BUN/Creatinine Ratio 17.9 (6-22) Glucose 171 H (80-110) mg/dL Calcium 9.3 (8.4-10.2) mg/dL Total Bilirubin 0.6 (0.2-1.3) mg/dL AST 34 (17-59) IU/L ALT 43 (<50) IU/L Alkaline Phosphatase 64 (38-126) U/L Total Creatine Kinase 188 H (55-170) U/L CK-MB (CK-2) 2.78 H (<2.37) ng/mL CK-MB (CK-2) Rel Index 1.5 (1.5-5.0) % Troponin I < 0.012 (0.01-0.034) ng/mL NT-Pro-B Natriuret Pep 25 (<125) pg/mL Total Protein 6.2 L (6.3-8.2) g/dL Albumin 4.2 (3.5-5.0) g/dL Globulin 2.0 (1.7-4.1) g/dL Albumin/Globulin Ratio 2.1 (1.0-2.8) Lipase 159 (23-300) U/L 09/05/19 Range/Units 22:01 WBC (4.5-11.0) X10^3/uL RBC (4.5-5.9) X10^6/uL Hgb (13.5-17.5) g/dL Hct (41-53) % MCV (80-100) fL MCH (26-34) PG MCHC (30-36) % RDW (11.6-14.8) % Plt Count (150-400) X10^3/uL Neut % (Auto) (50-75) % Lymph % (Auto) (25-40) % Steele % (Auto) (3-14) % Eos % (Auto) (2-4) % Baso % (Auto) (0-2) % Neut # (Auto) (7129-5472) /uL Lymph # (Auto) (8548-4383) /uL Steele # (Auto) (0-900) /uL Eos # (Auto) (0-450) /uL Baso # (Auto) (0-100) /uL PT (10.1-12.7) SECONDS INR (0.9-1.3) APTT (26.4-36.2) SECONDS D-Dimer (<230) ng/mL Sodium (137-145) mmol/L Potassium (3.4-5.1) mmol/L Chloride (98-107) mmol/L Carbon Dioxide (22-32) mmol/L BUN (9-20) mg/dL Creatinine (0.66-1.25) mg/dL Estimated GFR (>60) mL/min BUN/Creatinine Ratio (6-22) Glucose (80-110) mg/dL Calcium (8.4-10.2) mg/dL Total Bilirubin (0.2-1.3) mg/dL AST (17-59) IU/L ALT (<50) IU/L Alkaline Phosphatase (38-126) U/L Total Creatine Kinase (55-170) U/L CK-MB (CK-2) (<2.37) ng/mL CK-MB (CK-2) Rel Index (1.5-5.0) % Troponin I < 0.012 (0.01-0.034) ng/mL NT-Pro-B Natriuret Pep (<125) pg/mL Total Protein (6.3-8.2) g/dL Albumin (3.5-5.0) g/dL Globulin (1.7-4.1) g/dL Albumin/Globulin Ratio (1.0-2.8) Lipase (23-300) U/L Imaging Data Chest x-ray: Radiologist's Impression: [address] [address] XRay Report Signed Patient: Nadia Agee [facility]#: [id number] : 2Acct:[id number] Age/Sex: 68 / MDate of Service: 09/05/19 Loc: ED Accession Number: [id number] Procedure: XR chest 1V Ordering Provider: Favian Gamez D.O. PROCEDURE: XR CHEST 1V INDICATIONS: chest pain TECHNIQUE: One view of the chest was acquired. COMPARISON: [facility], , CHEST 2 VIEW, 07/16/2011, 21:57. FINDINGS: Surgical changes and devices: Fusion hardware in the lower cervical spine is seen. Lungs and pleura: Lungs are clear. Elevation of right hemidiaphragm is noted. No pleural effusions or pneumothorax. Mediastinum: Mediastinal contours appear normal. Heart size is enlarged. Bones and chest wall: No suspicious bony lesions. Overlying soft tissues appear unremarkable. IMPRESSION: Cardiomegaly and mild elevation of right hemidiaphragm. No focal infiltrate, pleural effusion or pneumothorax. Dictated by: Serafin Malone M.D. on 09/05/2019 at 20:54 Approved by: Serafin Malone M.D. on 09/05/2019 at 21:00 [facility] Narrative Medical decision making narrative: Multiple causes of chest pain considered including CA, PE, pneumothorax, pneumonia, aortic dissection, and pleurisy. Patient reports no radiation, no diaphoresis, no provocation with exertion, and no vomiting Patient's symptoms improved or duration of stay with above-stated therapies. Findings and discharge diagnosis discussed with patient/family followed by verbalization of understanding Return precautions discussed with patient/family whom verbalize understanding. Discharge Plan Departure Patient Disposition: Home Clinical Impression: Atypical chest pain Discharge Date/Time: 09/05/19 23:05 Activity Restrictions/Additional Instructions: *You have been diagnosed with [atypical chest pain] *What to do: *Take medications as directed *Follow up with your primary care provider in 2-3 days, call for an appointment. Let them know you were seen in the Emergency Department and that we ask that you be seen in follow up *Return to ER if you should have any new, worsening or concerning symptoms Prescriptions: No Action fluticasone propion-salmeterol [Advair Diskus] 500 MCG/50 MCG blister with device 1 puff INH BIDRT Qty: 0 RF: 0 omeprazole 20 mg capsule,delayed release(DR/EC) 40 mg PO DAILY RF: 0 albuterol sulfate [ProAir HFA] 90 mcg/actuation HFA aerosol inhaler 1 puff Inhalation PRN PRN (Reason: Shortness Of Breath) RF: 0 amlodipine 5 mg tablet 5 mg PO DAILY RF: 0 telmisartan [Micardis] 80 mg tablet 80 mg PO DAILY RF: 0 Spiriva with HandiHaler 18 mcg capsule, w/inhalation device 18 mcg INHALATION DIRECTED RF: 0 gabapentin 300 mg capsule 600 mg PO BEDTIME RF: 0 hydrocodone-acetaminophen [[place]] 5-325 mg tablet 1 tab PO Q4-6H PRN (Reason: pain) Qty: 10 RF: 0 lidocaine 5 % adhesive patch,medicated 1 patch TOP DAILY PRN (Reason: pain) Qty: 15 RF: 0 cyclobenzaprine 10 mg tablet 10 mg PO TID PRN (Reason: muscle spasm) Qty: 20 RF: 0 ketorolac 10 mg tablet 10 mg PO TID PRN (Reason: pain) Qty: 14 RF: 0 atorvastatin [Lipitor] 40 mg tablet 40 mg PO BEDTIME RF: 0 acetaminophen [Tylenol Extra Strength] 500 mg tablet 1,000 mg PO TID PRN (Reason: pain) RF: 0 meloxicam 7.5 mg tablet 7.5 mg PO DAILY Qty: 30 RF: 5 Referrals: Alvina Beth [Primary Care Provider] -
--- NOTE | 2019-09-05 20:06 | DI.RAD.S_ITS ---
PROCEDURE: XR CHEST 1V INDICATIONS: chest pain TECHNIQUE: One view of the chest was acquired. COMPARISON: [facility], , CHEST 2 VIEW, 07/16/2011, 21:57. FINDINGS: Surgical changes and devices: Fusion hardware in the lower cervical spine is seen. Lungs and pleura: Lungs are clear. Elevation of right hemidiaphragm is noted. No pleural effusions or pneumothorax. Mediastinum: Mediastinal contours appear normal. Heart size is enlarged. Bones and chest wall: No suspicious bony lesions. Overlying soft tissues appear unremarkable. IMPRESSION: Cardiomegaly and mild elevation of right hemidiaphragm. No focal infiltrate, pleural effusion or pneumothorax. Dictated by: Serafin Malone M.D. on 09/05/2019 at 20:54 Approved by: Serafin Malone M.D. on 09/05/2019 at 21:00
[2019-09-05 20:09] VITALS: BP 178/82; PULSE 78; RESP 20; O2SAT 96; BMI 33.0
[2019-09-05] MEDS: ASPIRIN 81 MG CHEW TAB 324 MG PO (20:13)
[2019-09-05] MEDS: KETOROLAC 60 MG/2 ML VIAL 15 MG IV (20:13)
[2019-09-05] MEDS: SODIUM CHLORIDE 0.9% 1,000 ML 150 ML IV (20:14)
[2019-09-05 20:17] LABS: Add Manual Diff / Slide Review NO; Basophils Absolute Auto 0 /uL (0-100); Basophils Percent Auto 0.8 % (0-2); Eosinophils Absolute Auto 200 /uL (0-450); Eosinophils Percent Auto 3.8 % (2-4); Hematocrit 43.6 % (41-53); Lymphocytes Absolute Auto 1100 /uL (1100-4500); Lymphocytes Percent Auto 20.1 % (25-40); Mean Corpuscular HGB Conc 34.5 % (30-36); Mean Corpuscular Hemoglobin 29.2 PG (26-34); Mean Corpuscular Volume 84.4 fL (80-100); Monocytes Absolute Auto 500 /uL (0-900); Monocytes Percent Auto 9.6 % (3-14); Neutrophils Absolute Auto 3700 /uL (1500-7000); Neutrophils Percent Auto 65.7 % (50-75); Platelet Count 166 X10^3/uL (150-400); Red Blood Cell Count 5.16 X10^6/uL (4.5-5.9); Red Cell Distribution Width 13.6 % (11.6-14.8); White Blood Cell Count 5.6 X10^3/uL (4.5-11.0)
[2019-09-05 20:20] VITALS: TEMP 36.8
[2019-09-05 20:24] LABS: Prothrombin Time 11.2 SECONDS (10.1-12.7)
[2019-09-05 20:27] LABS: PTT Partial Thromboplastin Tim 28 SECONDS (26.4-36.2)
[2019-09-05 20:29] LABS: Alanine Aminotransferase 43 IU/L (<50); Albumin 4.2 g/dL (3.5-5.0); Albumin Globulin Ratio 2.1 (1.0-2.8); Alkaline Phosphatase 64 U/L (38-126); Aspartate Aminotransferase 34 IU/L (17-59); BUN Creatinine Ratio 17.9 (6-22); Bilirubin Total 0.6 mg/dL (0.2-1.3); Blood Urea Nitrogen 15 mg/dL (9-20); Calcium 9.3 mg/dL (8.4-10.2); Carbon Dioxide 28 mmol/L (22-32); Chloride 104 mmol/L (98-107); Creatine Kinase 188 U/L (55-170); D Dimer < 200 ng/mL (<230); Estimated Glomerular Filt Rate > 60.0 mL/min (>60); Glucose 171 mg/dL (80-110); HEMOLYSIS 18 (0-50); Lipase 159 U/L (23-300); Potassium 3.8 mmol/L (3.4-5.1); Sodium 138 mmol/L (137-145); Total Protein 6.2 g/dL (6.3-8.2)
[2019-09-05 20:40] LABS: NT-proBNP (BNP-Adult 18+) 25 pg/mL (<125); Troponin I < 0.012 ng/mL (0.01-0.034)
[2019-09-05 20:44] LABS: CKMB % Relative Index 1.5 % (1.5-5.0); Creatine Kinase MB 2.78 ng/mL (<2.37)
[2019-09-05 21:20] VITALS: BP 138/65; PULSE 66; RESP 31; O2SAT 96
[2019-09-05 22:38] LABS: Troponin I < 0.012 ng/mL (0.01-0.034)
[2019-09-05 22:55] VITALS: BP 146/78; PULSE 61; RESP 18; O2SAT 98
== END 2019-09-05 23:05 | disposition home or self-care (01) ==
PROVIDERS: Emergency Provider Emergency Medicine; Family Provider Internal Medicine; PCP Internal Medicine
DX: R07.89 Other chest pain (principal); I10 Essential (primary) hypertension; E78.5 Hyperlipidemia, unspecified
CPT/HCPCS: 36415; 71045; 80053; 82550; 82553; 83690; 83880; 84484; 85025; 85379; 85610; 85730; 93005; 93010; 96361; 96374; 99284; J1885

== ENCOUNTER 2019-10-23 18:36 | Emergency (ER) | payer MEDICARE, OTHER, SELFPAY ==
[2019-10-23 18:44] VITALS: BP 128/72; PULSE 76; RESP 18; TEMP 36.8; O2SAT 96
--- NOTE | 2019-10-23 19:05 | DI.RAD.S_ITS ---
PROCEDURE: XR TIBIA FUBULA RT 2V INDICATIONS: pain sp scooter injury TECHNIQUE: 2 views of the tibia and fibula were acquired. COMPARISON: None. FINDINGS: Bones: No fractures or dislocations. No suspicious bony lesions. Soft tissues: No suspicious soft tissue calcifications or masses. IMPRESSION: No gas in the soft tissues, no underlying osteomyelitis is found. No foreign body seen. Dictated by: Williams Paniagua M.D. on 10/23/2019 at 19:35 Approved by: Williams Paniagua M.D. on 10/23/2019 at 19:35
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
[2019-10-23] MEDS: TET,DIPH,PERTUSS(ACELL),VAC/PF 0.5 ML SYRINGE IM (19:58)
[2019-10-23 20:14] VITALS: BP 164/83; PULSE 73; RESP 18; TEMP 36.7; O2SAT 96
== END 2019-10-23 20:17 | disposition home or self-care (01) ==
PROVIDERS: Emergency Provider Nurse Practitioner Family; Family Provider Internal Medicine; PCP Internal Medicine
DX: S80.811A Abrasion, right lower leg, initial encounter (principal); V00.831A Fall from motorized mobility scooter, initial encounter; Z23 Encounter for immunization
CPT/HCPCS: 73590; 90471; 99283; 90715

== ENCOUNTER → 2019-12-19 08:05 | Outpatient (CLI) | payer MEDICARE, OTHER, SELFPAY ==
--- NOTE | 2019-12-19 | DI.ECHO.S_ITS ---
[facility]---------+ [facility] +---------+ : : [address] : : : : [id number] : : : : Phone: [phone]+ Echocardiogram Report + + :Name: KACY DE LA O Study Date: 12/19/2019 Height: 70 in : :[facility] Weight: 230 lb : : Gender: Male BSA: 2.2 m2 : :: 1950 Age: 69 yrs BP: 154/93 mmHg: :Reason For Study: EDEMA : :Ordering Physician: DAGO, : :NAJMA Performed By: Tamela Fang : :Referring: NAJMA LOZA : + + Interpretation Summary The left ventricle is normal in size. The ejection fraction is estimated to be 60-65%. The right ventricle is normal in size and function. There is mild to moderate mitral regurgitation. There is mild tricuspid regurgitation. The right ventricular systolic pressure is estimated to be at least 29 mmHg based on an estimated right atrial pressure of 3 mm Hg. The ascending aorta is mildly enlarged. Procedure: A two-dimensional transthoracic echocardiogram with color flow and Doppler was performed. The study quality was technically adequate. There is no prior echocardiogram noted for this patient. The patient was in normal sinus rhythm during the exam. Left Ventricle: The left ventricle is normal in size. There is mild concentric left ventricular hypertrophy. There is no thrombus. The ejection fraction is estimated to be 60-65%. There are no focal wall motion abnormalities. MV E/A: 1.3 Med Peak E' Akin: 7.2 cm/sec E/E' med: 9. Right Ventricle: The right ventricle is normal in size and function. Atria: The left atrial size is normal. Right atrial size is normal. There is no Doppler evidence for an interatrial shunt. Mitral Valve: The mitral valve leaflets are slightly calcified. There is mild to moderate mitral regurgitation. Aortic Valve: The aortic valve is trileaflet. The aortic valve opens well. There is no aortic valve stenosis. No aortic regurgitation is present. Tricuspid Valve: The tricuspid valve is normal. There is mild tricuspid regurgitation. The right ventricular systolic pressure is estimated to be at least 29 mmHg based on an estimated right atrial pressure of 3 mm Hg. Pulmonic Valve: The pulmonic valve is not well seen, but is grossly normal. There is trace pulmonic regurgitation. Great Vessels: The aortic root is normal size. The ascending aorta is mildly enlarged. The IVC is of normal diameter and collapses greater than 50% with a sniff. This suggests a low right atrial pressure of 3 mm Hg. Pericardium/ Pleura There is no pericardial effusion. There is no pleural effusion. MMode/2D Measurements & Calculations LVIDd: 5.1 cm LVOT diam: 2.1 cm LVIDs: 3.5 cm Ao root diam: 3.6 cm FS: 31.4 % asc Aorta Diam: 3.9 cm EPSS: 0.50 cm Ao Arch Diam (Prox Trans): 3.3 cm IVSd: 1.2 cm LVPWd: 1.1 cm LV salcido. diameter/BSA (cm/m^2): 2.3 LV sys. diameter/BSA (cm/m^2): 1.6 LA A2 area: 20.0 cm2 RA long axis: 5.8 cm LA A4 area: 22.1 cm2 RA area: 18.8 cm2 LA length (vol): 5.9 cm RA vol: 52.0 ml LA vol: 63.8 ml RA : 23.5 ml/m2 LA vol index: 28.8 ml/m2 IVC diam: 2.1 cm RVD1 (basal): 4.0 cm TAPSE: 2.5 cm Doppler Measurements & Calculations Ao V2 max: 146.8 cm/sec LVOT Max Akin: 106.7 cm/sec Ao V2 mean: 92.3 cm/sec LV V1 max P.6 mmHg Ao max P.6 mmHg LV V1 VTI: 22.0 cm Ao mean P.9 mmHg KINDRA(I,D): 2.7 cm2 Ao V2 VTI: 29.1 cm KINDRA(V,D): 2.6 cm2 sev ratio: 0.75 KINDRA indexed to BSA (cm^2/m^2): 1.2 MV E max akin: 68.9 cm/sec TR max akin: 256.7 cm/sec MV A max akin: 54.8 cm/sec TR max P.4 mmHg MV E/A: 1.3 PA V2 max: 71.3 cm/sec Med Peak E' Akin: 7.2 cm/sec PA V2 mean: 44.6 cm/sec E/E' med: 9.6 PA mean P.95 mmHg Lat Peak E' Akin: 14.8 cm/sec PA pr(Accel): 32.8 mmHg E/E' lat: 4.7 E/e' average: 7.1 MV dec time: 0.17 sec SV(LVOT): 78.8 ml Reading Physician:10:46 AM
== END ==
PROVIDERS: Family Provider Internal Medicine; PCP Internal Medicine; Referring Provider Internal Medicine; Visit Provider Internal Medicine
DX: I08.1 Rheumatic disorders of both mitral and tricuspid valves (principal); I77.89 Other specified disorders of arteries and arterioles; R60.9 Edema, unspecified
CPT/HCPCS: 93306

== ENCOUNTER → 2020-01-07 11:02 | Outpatient (CLI) | payer MEDICARE, OTHER, SELFPAY ==
--- NOTE | 2020-01-07 11:03 | DI.RAD.S_ITS ---
PROCEDURE: XR CERVICAL SPINE 4V OR 5V INDICATIONS: spinal stenosis TECHNIQUE: 5 views of the cervical spine acquired. COMPARISON: [facility], CR, XR CERVICAL SPINE 4V OR 5V, 06/06/2018, 8:03. FINDINGS: Bones: No fracture. Straightening of the normal lordotic curvature. Multilevel degenerative endplate sclerosis and spurring. Diffuse facet arthropathy. Postsurgical changes related ACDF from C5-C7 grade 1 anterolisthesis of C4-C5. Hardware appears intact. There is expected postoperative alignment There is minimal narrowing of the remaining cervical disc spaces. On the left, there is moderate bony foraminal stenosis at C3-C4 and C4-C5. On the right, there is moderate bony foraminal stenosis from the level of C3-C4, C4-C5 and C5-C6. There is mild right C6-C7 bony foraminal stenosis. Soft tissues: No prevertebral soft tissue swelling. IMPRESSION: Chronic postsurgical and degenerative changes as above. Overall, no definite interval change since 06/06/18. Dictated by: Teto Lane M.D. on 01/07/2020 at 13:16 Approved by: Teto Lane M.D. on 01/07/2020 at 13:22
== END ==
PROVIDERS: Family Provider Internal Medicine; PCP Internal Medicine; Referring Provider Physical Medicine & Rehabilitation; Visit Provider Physical Medicine & Rehabilitation
DX: M48.02 Spinal stenosis, cervical region (principal); M54.12 Radiculopathy, cervical region; G89.29 Other chronic pain; R51.9 Headache, unspecified; M47.812 Spondylosis without myelopathy or radiculopathy, cervical region; Z98.1 Arthrodesis status
CPT/HCPCS: 72050; 99213

== ENCOUNTER → 2020-01-11 17:07 | Outpatient (CLI) | payer MEDICARE, OTHER, SELFPAY ==
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
== END ==
PROVIDERS: Family Provider Internal Medicine; PCP Internal Medicine; Referring Provider Physical Medicine & Rehabilitation; Visit Provider Physical Medicine & Rehabilitation
DX: R20.2 Paresthesia of skin (principal); M54.12 Radiculopathy, cervical region; Z98.1 Arthrodesis status
CPT/HCPCS: 72141

== ENCOUNTER → 2020-02-04 09:25 | Outpatient (CLI) | payer MEDICARE, OTHER, SELFPAY ==
[2020-02-04 10:41] LABS: COVID19 -Nasal RAPID Negative (Negative)
== END ==
PROVIDERS: Family Provider Internal Medicine; PCP Internal Medicine; Visit Provider Physical Medicine & Rehabilitation
DX: Z01.812 Encounter for preprocedural laboratory examination (principal); Z20.828 Contact with and (suspected) exposure to other viral communicable diseases
CPT/HCPCS: 87635; C9803

== ENCOUNTER 2020-02-05 08:04 | Outpatient (CLI) | payer MEDICARE, OTHER, SELFPAY ==
--- NOTE | 2020-02-05 08:06 | DI.RAD.S_ITS ---
PROCEDURE: PAIN C/T INTERLAMINAR INJECT INDICATIONS: SPINAL STENOSIS COMPARISON: None. FINDINGS: Fluoroscopic spot filming was performed to verify placement of spinal needles at the C7-T1 level(s), as labeled on the films. Appropriate location(s) of the needle tip(s) was confirmed by injection of iodinated contrast. Dictated by: Teto Lane M.D. on 02/05/2020 at 11:46 Approved by: Teto Lane M.D. on 02/05/2020 at 11:46
[2020-02-05 08:22] VITALS: BP 145/86; PULSE 62; RESP 17; TEMP 36.2; O2SAT 97
[2020-02-05 09:35] VITALS: BP 160/74; PULSE 62; RESP 18; O2SAT 94
[2020-02-05] MEDS: MIDAZOLAM 5 MG/5 ML VIAL IV (09:35)
[2020-02-05] MEDS: IOPAMIDOL 15 ML VIAL 3 ML INJ (09:39)
[2020-02-05] MEDS: BUPIVACAINE 0.25% (PF) VIAL 2 ML INJ (09:40)
[2020-02-05] MEDS: DEXAMETHASONE 10 MG/ML VIAL 30 MG INJ (09:40)
--- NOTE | 2020-02-05 09:57 | P.PCN_ITS ---
Date/Time/Diagnoses Date of procedure: 02/05/20 Time of procedure: 09:57 Pre-procedure diagnosis: 1. CERVICAL STENOSIS, 2. CERVICAL HNP WITH UPPER EXTREMITY RADICULAR FEATURES Procedure Notes Procedure: FLUORSCOPICALLY GUIDED CONTRAST CONTROLLED INTERLAMINAR EPIDURAL STEROID INJECTION - C7/T1 TL KELSY Indications: Nadia is referred by Dr. Beth for treatment of Cervical Stenosis. Physician: Orestes Torres Total Fluoroscopy time (seconds): 52 Total sedation minutes: 20 Complications: none Procedure in detail & Post-procedure care: DESCRIPTION OF PROCEDURE Following review of allergy and review of potential side effects and comp lications, including, but not necessarily limited to, infection, allergic reaction, local tissue breakdown, temporary as well as permanent nerve injury, stroke, paralysis, and possible , the patient indicated that patient understood and agreed to proceed. An informed consent document was signed by the patient, witnessed by a nurse, and placed in the patient's chart. Additionally, other treatment options including modalities, medications, and physical therapy were reviewed with the patient. After review of previous anaesthesic history and IV conscious sedation the patient was deemed safe to proceed with todays procedure with IV conscious sedation as ASA class II designation. Safety time-out was performed to confirm patient ID, procedure to be performed and site of procedure. IV sedation was accomplished with a combination of 2mg of Versed administered by the RN after DO order, titrated to patient comfort during the course of the procedure while the patient remained responsive to all verbal commands. In the prone position, following sterile prep and drape of the cervical region, the C7/T1 translaminar space was identified fluoroscopically. The skin was anesthetized via a 25-gauge 1.5-inch needle with 1% lidocaine solution. At this point, a 25-gauge, 2.5-inch short bevel spinal needle was atraumatically introduced and advanced under fluoroscopic guidance into epidural space at the C7/T1 translaminar space. Depth was confirmed on lateral view. Radiological data, including multiple fluoroscopic views of the cervical spine, reveal a spinal needle at the C7/T1 translaminar space. Lateral views then show placement of the needle in the epidural space. Subsequent views show contrast material flowing superiorly and inferiorly in the epidural space. DSA fluoroscopy with live contrast injection, once again, confirmed no vascular or intrathecal uptake. At this point, using loss of resistance technique with saline and air, the epidural space was entered. Following negative aspiration, injection of approximately 1.5 cc of [id number]-[id number] with live fluoroscopy in the AP view confirmed epidural flow in the epidural space without vascular or intrathecal uptake observed. Subsequently, a test dose of 1 cc of 1% lidocaine solution was injected and patient was observed for two minutes without signs or symptoms of complications, including abdominal pain, shortness of breath, bilateral upper or lower extremity weakness, nausea and vomiting, prior to steroid injection. At this point, 3cc or 30mg of dexamethasone was then injected without incident. The patient tolerated the procedure well without signs or symptoms of complications prior to transfer to the recovery area for further monitoring The patient was then transferred to the recovery area where they were observed for an appropriate period of time after the injection. The patient reported a VAS score of 6 prior to the procedure and a post-procedure VAS of 0 POST OP INSTRUCTIONS The patient was provided a Pain Log to continue to record the patient's response to the target-specific procedure prior to the patient's follow-up visit with the referring physician. Additionally, specific post-injection care instructions and a contact number to our office were provided if concerns arise regarding possible complications associated with the procedure are suspected.
[2020-02-05 10:00] VITALS: BP 141/80; PULSE 66; RESP 16; O2SAT 97
[2020-02-05 10:05] VITALS: BP 123/80; PULSE 65; RESP 15; O2SAT 96
[2020-02-05 10:10] VITALS: BP 123/77; PULSE 68; RESP 16; O2SAT 96
[2020-02-05 10:15] VITALS: BP 132/83; PULSE 62; RESP 17; O2SAT 94
== END 2020-02-05 10:20 | disposition home or self-care (01) ==
PROVIDERS: Family Provider Internal Medicine; PCP Internal Medicine; Referring Provider Internal Medicine; Visit Provider Physical Medicine & Rehabilitation
DX: M48.02 Spinal stenosis, cervical region (principal); M50.23 Other cervical disc displacement, cervicothoracic region
CPT/HCPCS: 62321; 99152; J1100; J2250; J3010

== ENCOUNTER → 2020-11-26 06:57 | Outpatient (CLI) | payer MEDICARE, OTHER, SELFPAY ==
[2020-11-26 08:20] LABS: COVID19 -Nasal RAPID Negative (Negative)
== END ==
PROVIDERS: Family Provider Internal Medicine; PCP Internal Medicine; Referring Provider Internal Medicine; Visit Provider Internal Medicine
DX: Z20.822 Contact with and (suspected) exposure to COVID-19 (principal)
CPT/HCPCS: 87635; C9803

== ENCOUNTER → 2020-11-27 15:06 | Outpatient (CLI) | payer MEDICARE, OTHER, SELFPAY ==
--- NOTE | 2020-12-02 08:15 | PM.PFT.1 ---
Pulmonary Function Test Referral & Results Date Patient Seen: 11/27/20 Requesting provider: Alvina Beth Results: The spirometry demonstrates an FVC of 3.69 L which is 82% of predicted. The FEV1 was measured at 2.46 L which is 74% of predicted. The FEV1/FVC ratio was 67 which is 90% of predicted. Following the administration of bronchodilator there was 29% improvement in FEF 25-75% Lung volumes show an SVC of 3.70 L which is 80% of predicted. The diffusing capacity was measured at 24.52 which is 75% of predicted. The maximum voluntary ventilation was reduced Interpretation: This study demonstrates possible mild obstructive lung disease based on reduction FEV1 although FEV1/FVC ratio is preserved there is evidence of some improvement in small airway flow based on 29% improvement in FEF 25-75% after bronchodilator as above Lung volumes are minimally reduced which may contribute to the abnormal FEV1 above suggesting mild restrictive lung disease may be present There is also mild reduction in diffusing capacity suggesting the possibility of disease at the capillary alveolar level Compared to PFTs performed in November 2018, current study shows decline in diffusing capacity and FEV1
== END ==
PROVIDERS: Family Provider Internal Medicine; PCP Internal Medicine; Referring Provider Internal Medicine; Visit Provider Internal Medicine
DX: J45.20 Mild intermittent asthma, uncomplicated (principal)
CPT/HCPCS: 94060; 94726; 94729

== ENCOUNTER 2021-01-14 15:21 | Inpatient (IN) | payer MEDICARE, OTHER, SELFPAY ==
[2021-01-14] VITALS (17 sets, daily range): BP systolic 173–212; BP diastolic 87–107; PULSE 77–102; RESP 18–26; TEMP 37.1–38.1; O2SAT 86–96; BMI 38.0; BMI 33.7
--- NOTE | 2021-01-14 15:59 | DI.RAD.S_ITS ---
PROCEDURE: XR CHEST 1V INDICATIONS: suspected sepsis TECHNIQUE: One view of the chest was acquired. COMPARISON: [facility], CR, XR CHEST 1V, 09/05/2019, 20:15. FINDINGS: Surgical changes and devices: Cervical fusion hardware. Lungs and pleura: Mild patchy bilateral mid lung airspace opacity. No pleural effusions or pneumothorax. Mediastinum: Mediastinal contours appear normal. Heart size is normal. Bones and chest wall: No suspicious bony lesions. Overlying soft tissues appear unremarkable. IMPRESSION: Mild bilateral pneumonia. Dictated by: Jasper River M.D. on 01/14/2021 at 16:44 Approved by: Jasper River M.D. on 01/14/2021 at 16:46
--- NOTE | 2021-01-14 16:22 | ED.GENADULT ---
HPI - General Adult General Chief complaint: Shortness of Breath/Dyspnea Stated complaint: not feeling well, Covic + home test Time Seen by Provider: 01/14/21 16:14 Source: patient Mode of arrival: Ambulatory Limitations: no limitations History of Present Illness HPI narrative: Patient is a 70-year-old male. Under vaccinated against COVID. Approximately 10 days ago started having chills and body aches and generally not feeling very well. Symptoms continued over the past week. Did not take anything for symptoms. Last night took a home COVID test and it was positive. Today he has continued to feel worse with shortness of breath dyspnea on exertion. Related Data Home Medications Medication Instructions Recorded Confirmed fluticasone 500 mcg-salmeterol 50 1 puff INH BIDRT #0 11/18/10 01/07/20 mcg/dose blistr powdr for inhalation (Advair Diskus) atorvastatin 40 mg tablet (Lipitor) 40 mg PO BEDTIME 01/27/18 04/23/20 albuterol sulfate 90 mcg/actuation 1 puff INHALATION PRN PRN 02/23/18 04/23/20 aerosol inhaler omeprazole 20 mg capsule,delayed 40 mg PO DAILY 02/23/18 04/23/20 release acetaminophen 500 mg tablet 1,000 mg PO TID PRN tab 12/25/18 04/23/20 (Tylenol Extra Strength) telmisartan 80 mg tablet (Micardis) 80 mg PO DAILY 05/03/19 04/23/20 hydrochlorothiazide 25 mg tablet 25 mg PO DAILY 04/23/20 04/23/20 Previous Rx's Medication Instructions Recorded ketorolac 10 mg tablet 10 mg PO TID PRN #14 tab 05/03/19 lidocaine 5 % topical patch 1 patch TOP DAILY PRN #15 each 05/03/19 gabapentin 300 mg capsule 300 mg PO .COMPLEX #90 cap 01/07/20 meloxicam 7.5 mg tablet 7.5 mg PO BID #60 tab 01/07/20 Allergies Allergy/AdvReac Type Severity Reaction Status Date / Time sulfamethoxazole Allergy Severe rash and Verified 04/23/20 15:07 [From ] swelling trimethoprim [From ] Allergy Severe rash and Verified 04/23/20 15:07 swelling Penicillins [PENICILLINS] Allergy Unknown rash and Verified 04/23/20 15:07 swelling shellfish derived AdvReac Mild Swelling Verified 04/23/20 15:07 of Lip/Tongue/Throat Review of Systems Constitutional Constitutional: Reports chills, Reports fatigue, Reports fever(s), Reports headache(s) and Reports lethargy ENT Ears, Nose, Mouth, and Throat: Reports headache(s) Cardiovascular Cardiovascular: Denies chest pain, Reports dyspnea and Reports dyspnea on exertion Respiratory Respiratory: Reports dyspnea and Reports dyspnea on exertion Gastrointestinal Gastrointestinal: Reports system reviewed and no additional complaints, except as documented Integumentary/Breasts Skin/Breast: Reports system reviewed and no additional complaints, except as documented Neurologic Neurologic: Reports headache(s) Endocrine Endocrine: Reports fatigue Hematologic/Lymphatic On Anticoagulants: No Patient History Medical History Brachial plexopathy Cervical facet syndrome Cervical radiculopathy at C7 Chronic radicular cervical pain Tendinopathy of left rotator cuff Surgical History Status post cervical spinal fusion Family History Other Medical history non-contributory Social History Smoking Status: Never smoker additional social history: Never smoker, no ETOH Smoking Status: Never smoker alcohol intake frequency: holidays/special occasions only Substance Use Type: does not use Exam Initial Vital Signs Initial Vital Signs: Vital Signs Temperature 99.5 F 01/14/21 15:53 Pulse Rate 85 01/14/21 15:53 Respiratory Rate 18 01/14/21 15:53 Blood Pressure 187/92 H 01/14/21 15:53 Pulse Oximetry 86 L 01/14/21 15:53 Const General: comfortable, well developed, No acute distress and ill appearing Limitations: mental status not altered [facility] Head: normal to inspection and normocephalic Resp Effort & Inspection: labored, no retractions and tachypneic Auscultation: clear to auscultation bilaterally Cardio Rate: regular rate Rhythm: regular rhythm GI Inspection: non-distended Palpation: soft Back/Spine/Pelvis Back: normal to inspection Skin Lesions: no lesions Rashes: no rashes Neuro General: patient alert, patient awake, patient oriented x3 and moves all extremities Extrem General: capillary refill normal Psych Appearance: grossly normal and well kempt Course Orders Ordered: ED Orders 01/14/21 15:59 XR chest 1V Stat EKG-12 Lead Stat RT Consult Eval and Treat Now 01/14/21 16:27 Blood Culture Stat 01/14/21 16:30 COVID19 - ADMIT ([facility] swab/PCR) Stat Complete Blood Count AUTO DIFF Stat Comprehensive Metabolic Panel Stat Lactate (Lactic Acid) Stat Lipase Stat Procalcitonin Stat 01/14/21 17:27 BMP [Basic Metabolic Panel] Stat Acetaminophen (Acetaminophen 325 Mg Tablet) 650 mg PO Q6HR PRN PRN Reason: Fever/Mild Pain (1-3) Albuterol (Albuterol 2.5 Mg/3 Ml Neb (Adult)) 2.5 mg INH RTQ4HR PRN PRN Reason: Shortness Of Breath Or Wheezing Albuterol/Ipratropium (Albuterol/Ipratropium 3 Ml Ampul) 3 ml INH [id number] JEANIE Bisacodyl (Bisacodyl 10 Mg Supp) 10 mg MN DAILY PRN PRN Reason: Constipation Calcium Carbonate (Calcium Carbonate 500 Mg Tab) 1,000 mg PO Q4HR PRN PRN Reason: Dyspepsia Enoxaparin Sodium (Enoxaparin 100 Mg/Ml Syringe) 100 mg SUBCUT BID JEANIE Famotidine (Famotidine 20 Mg/2 Ml Vial) 20 mg IV BID JEANIE Sodium Chloride (Normal Saline 0.9%) 1,000 mls @ 70 mls/hr IV CONT JEANIE Doxycycline Hyclate 100 mg/ (Sodium Chloride) 100 mls @ 100 mls/hr IV Q12H JEANIE Levofloxacin (Levaquin) 500 mg in 100 mls @ 100 mls/hr IV Q24H JEANIE Methylprednisolone (Methylprednisolone 125 Mg/2 Ml Vial) 60 mg IV Q8H JEANIE Morphine Sulfate (Morphine 2 Mg/Ml Inj) 2 mg IV Q4HR PRN PRN Reason: Pain, Moderate (4-6) Naloxone HCl (Naloxone 0.4 Mg/Ml Vial) 0.2 mg IV Q2MIN PRN PRN Reason: Opiate Reversal Ondansetron HCl (Ondansetron 4 Mg/2 Ml Inj) 4 mg IV Q8HR PRN PRN Reason: Nausea And Vomiting Sennosides (Sennosides 8.6 Mg Tablet) 17.2 mg PO BEDTIME JEANIE Discontinued Medications Enoxaparin Sodium (Enoxaparin 40 Mg/0.4 Ml Syringe) 40 mg SUBCUT DAILY JEANIE Sodium Chloride (Normal Saline 0.9%) 1,000 mls @ 1,000 mls/hr IV BOLUS ONE Stop: 01/14/21 16:58 Last Infusion: 01/14/21 17:57 Dose: 0 mls/hr Documented by: Admin: 01/14/21 16:37 Dose: 1,000 mls/hr Documented by: ROSSY Vital Signs Vital signs: Vital Signs - 8 hr 01/14/21 15:53 01/14/21 16:12 01/14/21 16:15 Temperature 99.5 F Pulse Rate 85 80 77 Respiratory Rate 18 20 25 H Blood Pressure 187/92 H Pulse Oximetry 86 L 95 96 01/14/21 16:30 01/14/21 16:45 01/14/21 17:00 Temperature Pulse Rate 81 85 84 Respiratory Rate 22 22 21 Blood Pressure 177/87 H 190/101 H Pulse Oximetry 94 94 96 01/14/21 17:15 01/14/21 17:30 Temperature Pulse Rate 91 H 80 Respiratory Rate 23 26 H Blood Pressure 207/96 H Pulse Oximetry 89 L 93 Medical Decision Making Lab Data Lab results reviewed: Yes I reviewed the patient's lab results. Result diagrams: 01/14/21 16:30 01/14/21 16:30 Labs: Lab Results 01/14/21 01/14/21 01/14/21 Range/Units 16:30 16:30 16:30 WBC 13.1 H (4.5-11.0) X10^3/uL RBC 4.77 (4.5-5.9) X10^6/uL Hgb 13.4 L (13.5-17.5) g/dL Hct 38.5 L (41-53) % MCV 80.7 (80-100) fL MCH 28.1 (26-34) PG MCHC 34.8 (30-36) % RDW 12.7 (11.6-14.8) % Plt Count 247 (150-400) X10^3/uL Neut % (Auto) 92.2 H (50-75) % Lymph % (Auto) 2.3 L (25-40) % [place] % (Auto) 5.0 (3-14) % Eos % (Auto) 0.1 L (2-4) % Baso % (Auto) 0.4 (0-2) % Neut # (Auto) 49624 H (6247-7286) /uL Lymph # (Auto) 300 L (6358-3941) /uL [place] # (Auto) 700 (0-900) /uL Eos # (Auto) 0 (0-450) /uL Baso # (Auto) 0 (0-100) /uL Sodium 117 L* (137-145) mmol/L Potassium 3.6 (3.4-5.1) mmol/L Chloride 79 L (98-107) mmol/L Carbon Dioxide 30 (22-32) mmol/L BUN 8 L (9-20) mg/dL Creatinine 0.59 L (0.66-1.25) mg/dL Estimated GFR > 60.0 (>60) mL/min BUN/Creatinine Ratio 13.6 (6-22) Glucose 183 H (80-110) mg/dL Lactate 1.2 (0.7-2.1) mmol/L Calcium 8.5 (8.4-10.2) mg/dL Total Bilirubin 1.1 (0.2-1.3) mg/dL AST 41 (17-59) IU/L ALT 39 (<50) IU/L Alkaline Phosphatase 65 (38-126) U/L Total Protein 6.6 (6.3-8.2) g/dL Albumin 3.9 (3.5-5.0) g/dL Globulin 2.7 (1.7-4.1) g/dL Albumin/Globulin Ratio 1.4 (1.0-2.8) Lipase 21 L (23-300) U/L Procalcitonin 0.11 (<0.5) ng/mL SARS-CoV-2 (PCR) (Negative) 01/14/21 Range/Units 16:30 WBC (4.5-11.0) X10^3/uL RBC (4.5-5.9) X10^6/uL Hgb (13.5-17.5) g/dL Hct (41-53) % MCV (80-100) fL MCH (26-34) PG MCHC (30-36) % RDW (11.6-14.8) % Plt Count (150-400) X10^3/uL Neut % (Auto) (50-75) % Lymph % (Auto) (25-40) % [place] % (Auto) (3-14) % Eos % (Auto) (2-4) % Baso % (Auto) (0-2) % Neut # (Auto) (4900-6999) /uL Lymph # (Auto) (0569-8132) /uL [place] # (Auto) (0-900) /uL Eos # (Auto) (0-450) /uL Baso # (Auto) (0-100) /uL Sodium (137-145) mmol/L Potassium (3.4-5.1) mmol/L Chloride (98-107) mmol/L Carbon Dioxide (22-32) mmol/L BUN (9-20) mg/dL Creatinine (0.66-1.25) mg/dL Estimated GFR (>60) mL/min BUN/Creatinine Ratio (6-22) Glucose (80-110) mg/dL Lactate (0.7-2.1) mmol/L Calcium (8.4-10.2) mg/dL Total Bilirubin (0.2-1.3) mg/dL AST (17-59) IU/L ALT (<50) IU/L Alkaline Phosphatase (38-126) U/L Total Protein (6.3-8.2) g/dL Albumin (3.5-5.0) g/dL Globulin (1.7-4.1) g/dL Albumin/Globulin Ratio (1.0-2.8) Lipase (23-300) U/L Procalcitonin (<0.5) ng/mL SARS-CoV-2 (PCR) Positive H (Negative) Imaging Data Chest x-ray: Radiologist's Impression: [address] [address] XRay Report Signed Patient: Nadia Agee MR#: [id number] : 1950 Acct:[id number] Age/Sex: 70 / M Date of Service: 01/14/21 Loc: ED Accession Number: [id number] ?? Procedure: XR chest 1V Ordering Provider: Lanker,Ramon D.O. PROCEDURE:? XR CHEST 1V ? INDICATIONS:? suspected sepsis ? TECHNIQUE:? One view of the chest was acquired.? ? COMPARISON:? [facility], CR, XR CHEST 1V, 09/05/2019, 20:15. ? FINDINGS:? ? Surgical changes and devices:? Cervical fusion hardware. ? Lungs and pleura:? Mild patchy bilateral mid lung airspace opacity.? No pleural effusions or pneumothorax.? ? Mediastinum:? Mediastinal contours appear normal.? Heart size is normal.? ? Bones and chest wall:? No suspicious bony lesions.? Overlying soft tissues appear unremarkable.? ? IMPRESSION:? Mild bilateral pneumonia. ? ? Dictated by: Jasper River M.D. on 01/14/2021 at 16:44 ? ? Approved by: Jasper River M.D. on 01/14/2021 at 16:46?? ECG Data Attestation: I personally reviewed and interpreted this ECG as follows: Interpretation: Sinus rhythm Ventricular rate 83 Normal axis Normal QRS Normal QTC No ST T wave changes MDM Narrative Medical decision making narrative: Patient is COVID positive. Hypoxic to the mid 80s on room air. Did improve with oxygen by nasal cannula. Chest x-ray is consistent with COVID. Does have leukocytosis. Discussed case with hospitalist. Will admit for further evaluation treatment. Discussed the need for admission with the patient as well. He expressed understanding agreement. Discharge Plan Departure Patient Disposition: Admitted As Inpatient Clinical Impression: COVID-19, Asthma, Hypoxia, Hyponatremia Admit Date/Time: 01/14/21 17:32 Admit Provider: Trena Calderon
[2021-01-14] MEDS: SODIUM CHLORIDE 0.9% 1,000 ML 1000 ML IV (16:37)
[2021-01-14 16:48] LABS: Add Manual Diff / Slide Review NO; Basophils Absolute Auto 0 /uL (0-100); Basophils Percent Auto 0.4 % (0-2); Eosinophils Absolute Auto 0 /uL (0-450); Eosinophils Percent Auto 0.1 % (2-4); Hematocrit 38.5 % (41-53); Hemoglobin 13.4 g/dL (13.5-17.5); Lymphocytes Absolute Auto 300 /uL (1100-4500); Lymphocytes Percent Auto 2.3 % (25-40); Mean Corpuscular HGB Conc 34.8 % (30-36); Mean Corpuscular Hemoglobin 28.1 PG (26-34); Mean Corpuscular Volume 80.7 fL (80-100); Monocytes Absolute Auto 700 /uL (0-900); Neutrophils Absolute Auto 12100 /uL (1500-7000); Neutrophils Percent Auto 92.2 % (50-75); Platelet Count 247 X10^3/uL (150-400); Red Blood Cell Count 4.77 X10^6/uL (4.5-5.9); Red Cell Distribution Width 12.7 % (11.6-14.8); White Blood Cell Count 13.1 X10^3/uL (4.5-11.0)
[2021-01-14 17:00] LABS: Lactate (Lactic Acid) 1.2 mmol/L (0.7-2.1)
[2021-01-14 17:01] LABS: Alanine Aminotransferase 39 IU/L (<50); Albumin 3.9 g/dL (3.5-5.0); Albumin Globulin Ratio 1.4 (1.0-2.8); Alkaline Phosphatase 65 U/L (38-126); Aspartate Aminotransferase 41 IU/L (17-59); BUN Creatinine Ratio 13.6 (6-22); Bilirubin Total 1.1 mg/dL (0.2-1.3); Blood Urea Nitrogen 8 mg/dL (9-20); Calcium 8.5 mg/dL (8.4-10.2); Carbon Dioxide 30 mmol/L (22-32); Estimated Glomerular Filt Rate > 60.0 mL/min (>60); Globulin 2.7 g/dL (1.7-4.1); Glucose 183 mg/dL (80-110); HEMOLYSIS < 15 (0-50); Lipase 21 U/L (23-300); Total Protein 6.6 g/dL (6.3-8.2)
[2021-01-14 17:05] LABS: Chloride 79 mmol/L (98-107); Potassium 3.6 mmol/L (3.4-5.1); Sodium 117 mmol/L (137-145)
[2021-01-14 17:17] LABS: Procalcitonin 0.11 ng/mL (<0.5)
[2021-01-14 17:27] LABS: COVID19 - ADMIT (NP swab/PCR) POSITIVE (Negative)
--- NOTE | 2021-01-14 18:57 | PM.HP.1 ---
History of Present Illness History of Present Illness Date Patient Seen: 01/14/21 Time Patient Seen: 18:57 Chief complaint: not feeling well, Covic + home test Narrative: THIS IS A 70-YEAR-OLD MALE WITH A HISTORY OF ASTHMA. PATIENT DENIES ANY RECENT TRAVEL. 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 PATIENT PRESENTED TO THE HOSPITAL TO THE REPORTING INCREASING MALAISE WELL INCREASING COUGH. HE REPORTED THAT HE SELF TESTED HIMSELF AT HOME AND RECEIVE A POSITIVE RESPONSE HE DECIDED TO COME TO THE ER WHERE AGAIN HE WAS TESTED AND WAS POSITIVE. HE REPORTED SOME SHORTNESS OF BREATH WHICH WAS BETTER AT REST AND WAS WORST WITH EXERTION. REPORTED IT TO BE TRUE WELL. DENIES ANY CHEST PAIN. NO CHEST PALPITATION. NO CHEST PRESSURE. NO PRIOR HISTORY OF CAD. Patient History Medical History Brachial plexopathy Cervical facet syndrome Cervical radiculopathy at C7 Chronic radicular cervical pain Tendinopathy of left rotator cuff Surgical History Status post cervical spinal fusion Family & Social History Family History Other Medical history non-contributory Safety & Behavioral: Feels Safe in Current Yes Environment Been Physically Hurt or No Threatened By a Person Tobacco & Substance use: Smoking Status Never smoker alcohol intake frequency holiday/special occasion Substance Use Type does not use Meds Home Medications and Allergies Home Medications Medication Instructions Recorded Confirmed Type fluticasone 500 mcg-salmeterol 50 1 puff INH BIDRT #0 11/18/10 01/07/20 History mcg/dose blistr powdr for inhalation (Advair Diskus) atorvastatin 40 mg tablet (Lipitor) 40 mg PO BEDTIME 01/27/18 04/23/20 History albuterol sulfate 90 mcg/actuation 1 puff INHALATION PRN PRN 02/23/18 04/23/20 History aerosol inhaler omeprazole 20 mg capsule,delayed 40 mg PO DAILY 02/23/18 04/23/20 History release acetaminophen 500 mg tablet 1,000 mg PO TID PRN tab 12/25/18 04/23/20 History (Tylenol Extra Strength) ketorolac 10 mg tablet 10 mg PO TID PRN #14 tab 05/03/19 04/23/20 Rx lidocaine 5 % topical patch 1 patch TOP DAILY PRN #15 each 05/03/19 04/23/20 Rx telmisartan 80 mg tablet (Micardis) 80 mg PO DAILY 05/03/19 04/23/20 History gabapentin 300 mg capsule 300 mg PO .COMPLEX #90 cap 01/07/20 04/23/20 Rx meloxicam 7.5 mg tablet 7.5 mg PO BID #60 tab 01/07/20 04/23/20 Rx hydrochlorothiazide 25 mg tablet 25 mg PO DAILY 04/23/20 04/23/20 History Allergies Allergy/AdvReac Type Severity Reaction Status Date / Time sulfamethoxazole Allergy Severe rash and Verified 04/23/20 15:07 [From ] swelling trimethoprim [From ] Allergy Severe rash and Verified 04/23/20 15:07 swelling Penicillins [PENICILLINS] Allergy Unknown rash and Verified 04/23/20 15:07 swelling shellfish derived AdvReac Mild Swelling Verified 04/23/20 15:07 of Lip/Tongue/Throat Review of Systems Review of Systems Narrative: REVIEW OF SYSTEMS NEGATIVE UNLESS NOTED ABOVE IN THE HPI Exam Vital Signs (past 8 hours): - 01/14/21 15:53 01/14/21 16:12 01/14/21 16:15 Temperature 99.5 F Pulse Rate 85 80 77 Respiratory Rate 18 20 25 H Blood Pressure 187/92 H Pulse Oximetry 86 L 95 96 01/14/21 16:30 01/14/21 16:45 01/14/21 17:00 Temperature Pulse Rate 81 85 84 Respiratory Rate 22 22 21 Blood Pressure 177/87 H 190/101 H Pulse Oximetry 94 94 96 01/14/21 17:15 01/14/21 17:30 01/14/21 17:45 Temperature Pulse Rate 91 H 80 87 Respiratory Rate 23 26 H 21 Blood Pressure 207/96 H Pulse Oximetry 89 L 93 93 01/14/21 18:00 01/14/21 18:01 01/14/21 18:15 Temperature Pulse Rate 87 86 86 Respiratory Rate 25 H 21 20 Blood Pressure 212/107 H Pulse Oximetry 91 91 89 L 01/14/21 18:53 Temperature 100.5 F H Pulse Rate 85 Respiratory Rate 22 Blood Pressure 185/92 H Pulse Oximetry 91 Oxygen Delivery Method Room Air Oxygen Flow Rate 4 Narrative Exam Narrative: NO ACUTE DISTRESS. PATIENT IS ALERT ORIENTED X3. VITAL SIGNS STABLE HEAD ATRAUMATIC NORMOCEPHALIC NECK : SUPPLE WITHOUT ADENOPATHY NO CAROTID BRUITS EYE: EOMI, PERRLA, NORMAL CONJUNCTIVA; NO JAUNDICE CHEST: REGULAR RATE. NO RUBS. PMI IS NON DISPLACED. NO MURMURS; NORMAL S1-S2 PULMONARY: BILATERAL WHEEZING NOTED. NO RALES; NO PLEURAL RUBS; DECREASED BS OVER THE BASES. MILD BIBASILAR CRACKLES NOTED; NO INCREASED DULLNESS TO PERCUSSION ABDOMEN: SOFT. NONTENDER. NONDISTENDED. BOWEL SOUNDS ARE PRESENT IN ALL 4 QUADRANTS. NO MASS. EXTREMITIES: NO EDEMA.. NO CYANOSIS CLUBBING NOTED. NEURO: CRANIAL NERVES 2-12 GROSSLY INTACT. NO FOCAL NEUROLOGICAL DEFICIT NOTED. MSK: NORMAL RANGE OF MOTION FOR AGE. NO JOINT EFFUSION. SKIN: NORMAL FOR ETHNICITY; NO ECCHYMOSIS. NO LESION. GOOD TURGOR.; NO RASHES : NORMAL EXTERNAL GENITALIA. PSYCH : APPROPRIATE MOOD AND AFFECT. ALERT AWAKE ORIENTED X3 Objective Labs Result Diagrams: 01/14/21 16:30 01/14/21 16:30 Labs: Laboratory Results - last 24 hr 01/14/21 01/14/21 01/14/21 16:30 16:30 16:30 WBC 13.1 H RBC 4.77 Hgb 13.4 L Hct 38.5 L MCV 80.7 MCH 28.1 MCHC 34.8 RDW 12.7 Plt Count 247 Neut % (Auto) 92.2 H Lymph % (Auto) 2.3 L [place] % (Auto) 5.0 Eos % (Auto) 0.1 L Baso % (Auto) 0.4 Neut # (Auto) 81573 H Lymph # (Auto) 300 L [place] # (Auto) 700 Eos # (Auto) 0 Baso # (Auto) 0 Sodium 117 L* Potassium 3.6 Chloride 79 L Carbon Dioxide 30 BUN 8 L Creatinine 0.59 L Estimated GFR > 60.0 BUN/Creatinine Ratio 13.6 Glucose 183 H Lactate 1.2 Calcium 8.5 Total Bilirubin 1.1 AST 41 ALT 39 Alkaline Phosphatase 65 Total Protein 6.6 Albumin 3.9 Globulin 2.7 Albumin/Globulin Ratio 1.4 Lipase 21 L Procalcitonin 0.11 SARS-CoV-2 (PCR) 01/14/21 16:30 WBC RBC Hgb Hct MCV MCH MCHC RDW Plt Count Neut % (Auto) Lymph % (Auto) [place] % (Auto) Eos % (Auto) Baso % (Auto) Neut # (Auto) Lymph # (Auto) [place] # (Auto) Eos # (Auto) Baso # (Auto) Sodium Potassium Chloride Carbon Dioxide BUN Creatinine Estimated GFR BUN/Creatinine Ratio Glucose Lactate Calcium Total Bilirubin AST ALT Alkaline Phosphatase Total Protein Albumin Globulin Albumin/Globulin Ratio Lipase Procalcitonin SARS-CoV-2 (PCR) Positive H Assessment & Plan Assessment & Plan narrative: IMPRESSION COVID-19 PNEUMONIA POSSIBLE SEPSIS PRESENT ON ARRIVAL LEUKOCYTOSIS SEVERE HYPERNATREMIA. CONSIDER SIADH ASTHMA WITH ACUTE EXACERBATION OBESITY. COUNSELING GIVEN ANEMIA. CHRONIC DISEASE SUSPECTED HYPERLIPIDEMIA PER HISTORY HYPERTENSION FOR HISTORY PLAN DUE TO PATIENT PRESENTATION, WILL HOLD REMDESEVIR FOR NOW WILL START ON ANTIBIOTICS HOWEVER STEROID BE ORDERED Q I.D. SCHEDULE AND NEEDED BREATHING TREATMENTS AGGRESSIVE PULMONARY TOILETING OXYGEN SUPPLEMENTAL MED AND PROPER OXYGEN SATURATION ABOVE 88% AT ALL TIMES CONSULT MONITORING AND EVALUATION ADVISOR IF INDICATED CLINICALLY CONTINUOUS PULSE OX ORDERED IC THE ALSO ORDERED PATIENT WILL BE FULLY ANTICOAGULATED WITH LOVENOX SIGNIFICANT HYPONATREMIA NOTED ON ADMISSION, HIS SURGEON WILL BE REPEATED HE WAS STARTED ON NORMAL SALINE IF THE REPEAT SODIUM IS CONFIRM, WILL TREND SODIUM Q.4 HOURS WILL CONSIDER RESTRICTING FLUID WELL SUSPECT THIS IS AN ACUTE EVENT PATIENT DENIES ALCOHOL ABUSE. AND CHRONIC HYPONATREMIA IS NOT SUSPECTED MONITOR LIVER AND KIDNEY FUNCTION CLOSELY ADDITIONAL MANAGEMENT PER CLINICAL COURSE DISCHARGE HER CLINICAL COURSE Time Spent With Patient Critical Care time: I spent a total of [] minutes of critical care time on this patient's care today; this time is exclusive of procedural time.
[2021-01-14 19:39] LABS: BUN Creatinine Ratio 10.8 (6-22); Blood Urea Nitrogen 7 mg/dL (9-20); Calcium 8.2 mg/dL (8.4-10.2); Carbon Dioxide 33 mmol/L (22-32); Chloride 80 mmol/L (98-107); Estimated Glomerular Filt Rate > 60.0 mL/min (>60); Glucose 147 mg/dL (80-110); HEMOLYSIS < 15 (0-50); Potassium 4.1 mmol/L (3.4-5.1)
[2021-01-14 19:47] LABS: Sodium 119 mmol/L (137-145)
[2021-01-14 19:49] LABS: Phosphorous 2.6 mg/dL (2.3-3.7)
[2021-01-14] MEDS: BUDESONIDE 0.5 MG/2 ML NEB INH (21:13)
[2021-01-14] MEDS: ALBUTEROL/IPRATROPIUM 3 ML AMPUL INH (21:13)
[2021-01-14] MEDS: methylPREDNISolone 125 MG/2 ML VIAL 60 MG IV (21:25)
[2021-01-14] MEDS: SODIUM CHLORIDE 0.9% 1,000 ML 70 ML IV (21:25)
[2021-01-14] MEDS: CHOLECALCIFEROL (VITAMIN D3) 1,000 UNIT TABLET 1000 UNIT PO (21:25)
[2021-01-14] MEDS: MULTIVIT,CALC,MINS/IRON/FOLIC 1 TABLET 1 TAB PO (21:25)
[2021-01-14] MEDS: levoFLOXacin 500 MG/100 ML PIGGYBACK 100 MG IV (21:25)
[2021-01-14] MEDS: MELATONIN 3 MG TABLET 6 MG PO (21:26)
[2021-01-14] MEDS: SENNOSIDES 8.6 MG TABLET 17.2 MG PO (21:26)
[2021-01-14] MEDS: GABAPENTIN 300 MG CAPSULE PO (21:26)
[2021-01-14] MEDS: TRAZODONE 100 MG TABLET PO (21:26)
[2021-01-14] MEDS: FAMOTIDINE 20 MG/2 ML VIAL IV (21:26)
[2021-01-14] MEDS: ENOXAPARIN 100 MG/ML SYRINGE SUBCUT (21:26)
[2021-01-14] MEDS: SUCRALFATE 1 GM TABLET PO (21:26)
[2021-01-14] MEDS: DOXYCYCLINE 100 MG in SODIUM CHLORIDE 0.9% 100 ML IV (23:05)
[2021-01-14] MEDS: ONDANSETRON 4 MG/2 ML INJ IV (23:07)
[2021-01-15] VITALS (16 sets, daily range): BP systolic 126–171; BP diastolic 71–97; PULSE 69–105; RESP 18–24; TEMP 36.3–37.3; O2SAT 90–96
[2021-01-15] MEDS: methylPREDNISolone 125 MG/2 ML VIAL 60 MG IV ×3 (02:10→18:05)
[2021-01-15 03:10] LABS: Add Manual Diff / Slide Review NO; Basophils Absolute Auto 0 /uL (0-100); Basophils Percent Auto 0.2 % (0-2); Eosinophils Absolute Auto 0 /uL (0-450); Hematocrit 38.1 % (41-53); Hemoglobin 13.2 g/dL (13.5-17.5); Lymphocytes Absolute Auto 300 /uL (1100-4500); Lymphocytes Percent Auto 2.1 % (25-40); Mean Corpuscular HGB Conc 34.7 % (30-36); Mean Corpuscular Volume 80.8 fL (80-100); Monocytes Absolute Auto 300 /uL (0-900); Monocytes Percent Auto 1.9 % (3-14); Neutrophils Absolute Auto 14500 /uL (1500-7000); Neutrophils Percent Auto 95.8 % (50-75); Platelet Count 249 X10^3/uL (150-400); Red Blood Cell Count 4.72 X10^6/uL (4.5-5.9); Red Cell Distribution Width 12.9 % (11.6-14.8); White Blood Cell Count 15.1 X10^3/uL (4.5-11.0)
[2021-01-15 03:21] LABS: Alanine Aminotransferase 42 IU/L (<50); Albumin 3.9 g/dL (3.5-5.0); Albumin Globulin Ratio 1.4 (1.0-2.8); Alkaline Phosphatase 67 U/L (38-126); Aspartate Aminotransferase 45 IU/L (17-59); BUN Creatinine Ratio 11.8 (6-22); Bilirubin Total 0.9 mg/dL (0.2-1.3); Blood Urea Nitrogen 8 mg/dL (9-20); Calcium 8.7 mg/dL (8.4-10.2); Carbon Dioxide 30 mmol/L (22-32); Chloride 81 mmol/L (98-107); Estimated Glomerular Filt Rate > 60.0 mL/min (>60); Globulin 2.8 g/dL (1.7-4.1); Glucose 216 mg/dL (80-110); HEMOLYSIS < 15 (0-50); Magnesium 1.9 mg/dL (1.6-2.3); Potassium 3.9 mmol/L (3.4-5.1); Total Protein 6.7 g/dL (6.3-8.2)
[2021-01-15 03:31] LABS: Sodium 119 mmol/L (137-145)
[2021-01-15] MEDS: DOXYCYCLINE 100 MG in SODIUM CHLORIDE 0.9% 100 ML IV ×2 (05:52→20:16)
[2021-01-15 07:36] LABS: Sodium 124 mmol/L (137-145)
[2021-01-15] MEDS: ALBUTEROL/IPRATROPIUM 3 ML AMPUL INH ×3 (08:28→19:20)
[2021-01-15] MEDS: BUDESONIDE 0.5 MG/2 ML NEB INH ×2 (08:28→19:30)
[2021-01-15] MEDS: GABAPENTIN 300 MG CAPSULE PO ×3 (09:17→20:17)
[2021-01-15] MEDS: FAMOTIDINE 20 MG/2 ML VIAL IV ×2 (09:17→20:17)
[2021-01-15] MEDS: SUCRALFATE 1 GM TABLET PO ×4 (09:17→20:18)
[2021-01-15] MEDS: MULTIVIT,CALC,MINS/IRON/FOLIC 1 TABLET 1 TAB PO (09:17)
[2021-01-15] MEDS: CHOLECALCIFEROL (VITAMIN D3) 1,000 UNIT TABLET 1000 UNIT PO (09:17)
[2021-01-15] MEDS: ENOXAPARIN 100 MG/ML SYRINGE SUBCUT ×2 (09:17→20:16)
--- NOTE | 2021-01-15 14:15 | P.PN_ITS ---
Subjective Subjective Date Patient Seen: 01/15/21 Interval history: 70-YEAR-OLD MALE UNVACCINATED BEEN TREATED FOR COVID-19 PNEUMONIA TODAY FEELING BETTER CONTINUE TO HAVE SOME DRY COUGH NO FEVER OR CHILLS OVERNIGHT HE DENIES ANY CHEST PAIN OR CHEST PALPITATIONS EATING WELL. NO DIARRHEA NO OTHER COMPLAINTS Exam Vital Signs (past 8 hours): - 01/15/21 08:40 01/15/21 08:45 01/15/21 11:35 Temperature 97.6 F 98.4 F Pulse Rate 93 H 86 87 Respiratory Rate 18 24 20 Blood Pressure 143/73 H 132/83 Pulse Oximetry 90 L 92 94 01/15/21 13:58 Temperature Pulse Rate 88 Respiratory Rate 20 Blood Pressure Pulse Oximetry 92 Oxygen Delivery Method Nasal Cannula Oxygen Flow Rate 6 Narrative Exam Narrative: NO ACUTE DISTRESS.? PATIENT IS ALERT ORIENTED X3. VITAL SIGNS STABLE HEAD ATRAUMATIC NORMOCEPHALIC NECK : SUPPLE WITHOUT ADENOPATHY NO CAROTID BRUITS EYE:? EOMI, PERRLA, NORMAL CONJUNCTIVA; NO JAUNDICE CHEST:? REGULAR RATE.? ? NO RUBS.? PMI IS NON DISPLACED.? NO MURMURS; NORMAL S1- S2 PULMONARY: ? LIMITED WHEEZING NOTED TODAY ON EXAM. ? NO RALES;? NO PLEURAL RUBS; DECREASED BS OVER THE BASES.? MILD BIBASILAR CRACKLES NOTED; NO INCREASED DULLNESS TO PERCUSSION ABDOMEN:? SOFT.? NONTENDER.? NONDISTENDED.? BOWEL SOUNDS ARE PRESENT IN ALL 4 QUADRANTS.? NO MASS. EXTREMITIES: NO EDEMA..? NO CYANOSIS CLUBBING NOTED. NEURO:? CRANIAL NERVES 2-12 GROSSLY INTACT. NO FOCAL NEUROLOGICAL DEFICIT NOTED. MSK:? NORMAL RANGE OF MOTION FOR AGE.? NO JOINT EFFUSION. SKIN:? NORMAL FOR ETHNICITY; NO ECCHYMOSIS.? NO LESION. ? GOOD? TURGOR.; NO RASHES :? NORMAL EXTERNAL GENITALIA. PSYCH :? APPROPRIATE MOOD AND AFFECT.? ALERT AWAKE ORIENTED X3 Objective Labs Result Diagrams: 01/15/21 03:00 01/15/21 07:10 Labs: Laboratory Results - last 24 hr 01/14/21 01/14/21 01/14/21 16:30 16:30 16:30 WBC 13.1 H RBC 4.77 Hgb 13.4 L Hct 38.5 L MCV 80.7 MCH 28.1 MCHC 34.8 RDW 12.7 Plt Count 247 Neut % (Auto) 92.2 H Lymph % (Auto) 2.3 L [place] % (Auto) 5.0 Eos % (Auto) 0.1 L Baso % (Auto) 0.4 Neut # (Auto) 40946 H Lymph # (Auto) 300 L [place] # (Auto) 700 Eos # (Auto) 0 Baso # (Auto) 0 Sodium 117 L* Potassium 3.6 Chloride 79 L Carbon Dioxide 30 BUN 8 L Creatinine 0.59 L Estimated GFR > 60.0 BUN/Creatinine Ratio 13.6 Glucose 183 H Lactate 1.2 Calcium 8.5 Phosphorus Magnesium Total Bilirubin 1.1 AST 41 ALT 39 Alkaline Phosphatase 65 Total Protein 6.6 Albumin 3.9 Globulin 2.7 Albumin/Globulin Ratio 1.4 Lipase 21 L Procalcitonin 0.11 SARS-CoV-2 (PCR) 01/14/21 01/14/21 01/14/21 16:30 19:12 19:12 WBC RBC Hgb Hct MCV MCH MCHC RDW Plt Count Neut % (Auto) Lymph % (Auto) [place] % (Auto) Eos % (Auto) Baso % (Auto) Neut # (Auto) Lymph # (Auto) [place] # (Auto) Eos # (Auto) Baso # (Auto) Sodium 119 L* Potassium 4.1 Chloride 80 L Carbon Dioxide 33 H BUN 7 L Creatinine 0.65 L Estimated GFR > 60.0 BUN/Creatinine Ratio 10.8 Glucose 147 H Lactate Calcium 8.2 L Phosphorus 2.6 Magnesium Total Bilirubin AST ALT Alkaline Phosphatase Total Protein Albumin Globulin Albumin/Globulin Ratio Lipase Procalcitonin SARS-CoV-2 (PCR) Positive H 01/15/21 01/15/21 01/15/21 03:00 03:00 07:10 WBC 15.1 H RBC 4.72 Hgb 13.2 L Hct 38.1 L MCV 80.8 MCH 28.0 MCHC 34.7 RDW 12.9 Plt Count 249 Neut % (Auto) 95.8 H Lymph % (Auto) 2.1 L [place] % (Auto) 1.9 L Eos % (Auto) 0.0 L Baso % (Auto) 0.2 Neut # (Auto) 63068 H Lymph # (Auto) 300 L [place] # (Auto) 300 Eos # (Auto) 0 Baso # (Auto) 0 Sodium 119 L* 124 L Potassium 3.9 Chloride 81 L Carbon Dioxide 30 BUN 8 L Creatinine 0.68 Estimated GFR > 60.0 BUN/Creatinine Ratio 11.8 Glucose 216 H Lactate Calcium 8.7 Phosphorus Magnesium 1.9 Total Bilirubin 0.9 AST 45 ALT 42 Alkaline Phosphatase 67 Total Protein 6.7 Albumin 3.9 Globulin 2.8 Albumin/Globulin Ratio 1.4 Lipase Procalcitonin SARS-CoV-2 (PCR) [facility] Medical History Brachial plexopathy Cervical facet syndrome Cervical radiculopathy at C7 Chronic radicular cervical pain Tendinopathy of left rotator cuff Surgical History Status post cervical spinal fusion Family History Other Medical history non-contributory Social History household members: spouse Smoking Status: Never smoker alcohol intake: current additional social history: Never smoker, no ETOH Assessment & Plan Assessment & Plan narrative: IMPRESSION ? ?COVID-19 PNEUMONIA ON SUPPORTIVE TREATMENT ANTIBIOTICS AND DUONEB TREATMENTS ?POSSIBLE SEPSIS. PRESENT ON ARRIVAL ?LEUKOCYTOSIS. SLIGHT INCREASED WBC TODAY ?HYPONATREMIA.? CONSIDER SIADH. ON IV FLUID. SODIUM LEVEL IMPROVING ?ASTHMA? WITH ACUTE EXACERBATION ?OBESITY.? COUNSELING GIVEN ? ANEMIA.? CHRONIC DISEASE? SUSPECTED ?HYPERLIPIDEMIA PER HISTORY ?HYPERTENSION FOR HISTORY ?PLAN 01/15 NO INDICATION TO MAKE ANY SIGNIFICANT CHANGES TO HER CURRENT MANAGEMENT HIS SODIUM LEVEL IS IMPROVING WILL AVOID ANY AGGRESSIVE CORRECTION TO DECREASE THE RISK OF CMP WILL ADD SODIUM TABLETS IF INDICATED IN THE NEXT 48 HOURS TO HELP CORRECT SODIUM APPARENTLY IF INDICATED CONTINUE CURRENT ANTIBIOTICS NO DIARRHEA REPORTED. NO SIGN OF C DIFF COLITIS OXYGEN SUPPLEMENT USING APPROPRIATE DEVICE TO MAINTAIN SAT >88% NURSING TO ENCOURAGE PATIENT TO USE IC DEVICE ORDERED PATIENT NEED TO BE ON A BED AT EAST 2 TO 3 TIMES A DAY MOST IMPORTANTLY, SHOULD BE ELEVATED WHICH MALE HOWEVER, WILL NEED TO MAINTAIN ASPIRATION AND FALL PRECAUTION ALL TIME ADDITIONAL MANAGEMENT PER CLINICAL COURSE 01/14 ?DUE TO PATIENT? PRESENTATION, WILL HOLD REMDESEVIR? FOR NOW ?WILL START ON ANTIBIOTICS HOWEVER ?STEROID BE ORDERED Q I.D. ?SCHEDULE AND NEEDED BREATHING TREATMENTS ?AGGRESSIVE PULMONARY TOILETING ? OXYGEN SUPPLEMENTAL MED AND PROPER OXYGEN SATURATION ABOVE 88% AT ALL TIMES ?CONSULT SENIOR BOILER OPERATOR IF INDICATED CLINICALLY ?CONTINUOUS PULSE OX ORDERED IC? THE ALSO ORDERED ?PATIENT WILL BE FULLY ANTICOAGULATED WITH LOVENOX ? SIGNIFICANT HYPONATREMIA NOTED ON ADMISSION, HIS SURGEON WILL BE REPEATED ?HE WAS STARTED ON NORMAL SALINE ?IF THE REPEAT SODIUM IS CONFIRM,? WILL? TREND SODIUM Q.4 HOURS ?WILL CONSIDER RESTRICTING FLUID WELL SUSPECT THIS IS AN ACUTE EVENT ?PATIENT DENIES ALCOHOL ABUSE.? AND CHRONIC HYPONATREMIA IS NOT SUSPECTED ?MONITOR LIVER AND? KIDNEY FUNCTION CLOSELY ?ADDITIONAL MANAGEMENT PER CLINICAL COURSE Time Spent With Patient Critical Care time: I spent a total of [] minutes of critical care time on this patient's care today; this time is exclusive of procedural time. Quality VTE Deep Vein Thrombosis/Pulmonary Embolism Present on Admission: No
[2021-01-15] MEDS: SODIUM CHLORIDE 0.9% 1,000 ML 70 ML IV (15:26)
--- NOTE | 2021-01-15 15:29 | CM.IDA ---
Initial DCP Assessment Note Patient is a 70 yo male, resident of [place]. Presents w/ worsening symptoms of known COVID virus, admitted for treatment of COVID-19 pneumonia. Patient unvaccinated. PCP: Alvina Beth Payer: [facility] [place] [employer] [facility] Reviewed chart. Attempted assessment by phone x2 and patient did not answer. Patient appears to be indp at baseline per chart, works. Return home w/spouse is expected upon DC. Patient currently on 6L via nasal cannula. CM team will follow closely in case any DC needs or concerns arise. Plan: DC home w/family is expected, once medically cleared, via family transport. r/o need for HH closer to DC DARIANA Skaggs Discharge Planning/Care Management CM Discharge Assessment Start: 01/15/21 15:24 Freq: Status: Active Protocol: Document 01/15/21 15:25 SEBASTIAN (Rec: 01/15/21 15:29 SEBASTIAN [id number]) Discharge Planning Assessment Assigned Cardiac Cath Technologist DARIANA Valles DPOA/Assigned Designee Name Tasneem Agee, spouse Contact Information [phone], Advance Directives? Yes Advance Directives on File No History Provided By Medical Record Prior Living Arrangements House Household Members spouse Type of transporation used prior to Drives own vehicle admit Independent with ADL's Yes Is patient alert and oriented? Yes Barriers to Discharge No Comment Medical management Discharge Plan Home Transportation Arrangement Family Referrals Initiated None needed Additional Comment At this time
[2021-01-15] MEDS: ZINC SULFATE 220 MG CAPSULE PO (18:11)
[2021-01-15] MEDS: levoFLOXacin 500 MG/100 ML PIGGYBACK 100 MG IV (18:20)
--- NOTE | 2021-01-15 18:56 | PC.NURSE ---
Dr Silverman notified of blood glucose 281 before dinner. He ordered humalog insulin sliding scale low dose and changed blood glucose checks to ac/hs. Assisted pt up to chair. On 6 liters with sats 94%.
[2021-01-15] MEDS: SENNOSIDES 8.6 MG TABLET 17.2 MG PO (20:17)
[2021-01-15] MEDS: MELATONIN 3 MG TABLET 6 MG PO (20:18)
[2021-01-15] MEDS: INSULIN LISPRO 100 UNIT/ML 3ML VIAL SUBCUT (20:40)
[2021-01-15] MEDS: TRAZODONE 100 MG TABLET PO (20:40)
[2021-01-16] VITALS (15 sets, daily range): BP systolic 112–167; BP diastolic 82–96; PULSE 78–103; RESP 18–24; TEMP 36.7–38.2; O2SAT 91–96
[2021-01-16] MEDS: methylPREDNISolone 125 MG/2 ML VIAL 60 MG IV ×2 (02:19→09:27)
[2021-01-16] MEDS: ACETAMINOPHEN 325 MG TABLET 650 MG PO ×2 (02:32→21:24)
[2021-01-16 06:03] LABS: Add Manual Diff / Slide Review NO; Basophils Absolute Auto 200 /uL (0-100); Basophils Percent Auto 1.3 % (0-2); Eosinophils Absolute Auto 0 /uL (0-450); Hematocrit 37.8 % (41-53); Hemoglobin 12.7 g/dL (13.5-17.5); Lymphocytes Absolute Auto 300 /uL (1100-4500); Lymphocytes Percent Auto 1.7 % (25-40); Mean Corpuscular HGB Conc 33.7 % (30-36); Mean Corpuscular Hemoglobin 27.7 PG (26-34); Mean Corpuscular Volume 82.2 fL (80-100); Monocytes Absolute Auto 900 /uL (0-900); Monocytes Percent Auto 4.7 % (3-14); Neutrophils Absolute Auto 17200 /uL (1500-7000); Neutrophils Percent Auto 92.3 % (50-75); Platelet Count 314 X10^3/uL (150-400); Red Cell Distribution Width 12.7 % (11.6-14.8); White Blood Cell Count 18.7 X10^3/uL (4.5-11.0)
[2021-01-16 06:08] LABS: Alanine Aminotransferase 83 IU/L (<50); Albumin 3.5 g/dL (3.5-5.0); Albumin Globulin Ratio 1.3 (1.0-2.8); Alkaline Phosphatase 72 U/L (38-126); Aspartate Aminotransferase 61 IU/L (17-59); BUN Creatinine Ratio 25.3 (6-22); Bilirubin Total 0.3 mg/dL (0.2-1.3); Blood Urea Nitrogen 19 mg/dL (9-20); Carbon Dioxide 30 mmol/L (22-32); Chloride 92 mmol/L (98-107); Estimated Glomerular Filt Rate > 60.0 mL/min (>60); Globulin 2.6 g/dL (1.7-4.1); Glucose 209 mg/dL (80-110); HEMOLYSIS < 15 (0-50); Magnesium 2.4 mg/dL (1.6-2.3); Potassium 4.5 mmol/L (3.4-5.1); Sodium 128 mmol/L (137-145); Total Protein 6.1 g/dL (6.3-8.2)
[2021-01-16] MEDS: DOXYCYCLINE 100 MG in SODIUM CHLORIDE 0.9% 100 ML IV (06:45)
[2021-01-16] MEDS: SODIUM CHLORIDE 0.9% 1,000 ML 70 ML IV (06:45)
[2021-01-16] MEDS: ALBUTEROL/IPRATROPIUM 3 ML AMPUL INH ×3 (08:09→19:59)
[2021-01-16] MEDS: BUDESONIDE 0.5 MG/2 ML NEB INH ×2 (08:09→19:59)
[2021-01-16] MEDS: ENOXAPARIN 100 MG/ML SYRINGE SUBCUT ×2 (09:10→20:52)
[2021-01-16] MEDS: MULTIVIT,CALC,MINS/IRON/FOLIC 1 TABLET 1 TAB PO (09:15)
[2021-01-16] MEDS: SUCRALFATE 1 GM TABLET PO ×4 (09:27→20:54)
[2021-01-16] MEDS: ZINC SULFATE 220 MG CAPSULE PO (09:27)
[2021-01-16] MEDS: CHOLECALCIFEROL (VITAMIN D3) 1,000 UNIT TABLET 1000 UNIT PO (09:27)
[2021-01-16] MEDS: GABAPENTIN 300 MG CAPSULE PO ×2 (09:27→20:55)
[2021-01-16] MEDS: FAMOTIDINE 20 MG/2 ML VIAL IV (09:28)
[2021-01-16] MEDS: INSULIN LISPRO 100 UNIT/ML 3ML VIAL SUBCUT ×4 (09:28→21:25)
--- NOTE | 2021-01-16 12:28 | CM.DPC ---
DCP continued: CM attempted to call patient today but no one answered, since patient is Covid + CM cannot meet the patient at the bedside. According to previous note DC plan is expected to be home with family when medically cleared - need to R/O HH needs as patient gets closer to DC. CM department will continue to attempt to reach patient at the bedside... CM spoke with patients nurse asked him if he could place patients phone closer to them so when CM calls they are able to respond. Luz Stone RN Case Manger
--- NOTE | 2021-01-16 12:55 | PC.NURSE ---
Addendum entered by [address] R.N. 01/16/21 18:25: Pt offers no overt c/o. cory. dinner well. Watching TV. Addendum entered by [address] R.N. 01/16/21 16:29: Makes needs known , offers overt c/o pain or other issues. Speaks easily and doesn't appear winded with conversation. Original Note: Pt alert and oriented. Follows commands. Offers no overt complaint. Feeling he is doing a bit better. 6 ltrs averaging 94%. Did ask for RT Tx.
--- NOTE | 2021-01-16 15:52 | PM.PN.1 ---
Subjective Subjective Date Patient Seen: 01/16/21 Interval history: 70-YEAR-OLD MALE UNVACCINATED BEEN TREATED FOR COVID-19 PNEUMONIA ON 6 L PER NASAL CANNULA IMPROVING ?TODAY WOULD LIKE TO AMBULATE MORE DENIES ANY INCREASING SHORTNESS OF BREATH ?CONTINUE TO HAVE SOME DRY COUGH ?NO FEVER OR CHILLS OVERNIGHT ?HE DENIES ANY CHEST PAIN OR CHEST PALPITATIONS ?EATING WELL.? NO DIARRHEA Exam Vital Signs (past 8 hours): - 01/16/21 08:00 01/16/21 08:09 01/16/21 08:18 Temperature Pulse Rate 89 95 H Respiratory Rate 22 22 Blood Pressure 161/94 H Pulse Oximetry 92 94 96 01/16/21 09:44 01/16/21 11:35 01/16/21 12:25 Temperature 98.6 F 98.0 F Pulse Rate 88 86 Respiratory Rate 20 24 Blood Pressure 167/93 H Pulse Oximetry 94 95 Oxygen Delivery Method Nasal Cannula Oxygen Flow Rate 6 Narrative Exam Narrative: NO ACUTE DISTRESS.? PATIENT IS ALERT ORIENTED X3. VITAL SIGNS STABLE HEAD ATRAUMATIC NORMOCEPHALIC NECK : SUPPLE WITHOUT ADENOPATHY NO CAROTID BRUITS EYE:? EOMI, PERRLA, NORMAL CONJUNCTIVA; NO JAUNDICE CHEST:? REGULAR RATE.? ? NO RUBS.? PMI IS NON DISPLACED.? NO MURMURS; NORMAL S1-S2 PULMONARY: ?? LIMITED WHEEZING NOTED TODAY ON EXAM. ? NO RALES;? NO PLEURAL RUBS; DECREASED BS OVER THE BASES.? MILD BIBASILAR CRACKLES NOTED; NO INCREASED DULLNESS TO PERCUSSION ABDOMEN:? SOFT.? NONTENDER.? NONDISTENDED.? BOWEL SOUNDS ARE PRESENT IN ALL 4 QUADRANTS.? NO MASS. EXTREMITIES: NO EDEMA..? NO CYANOSIS CLUBBING NOTED. NEURO:? CRANIAL NERVES 2-12 GROSSLY INTACT. NO FOCAL NEUROLOGICAL DEFICIT NOTED. MSK:? NORMAL RANGE OF MOTION FOR AGE.? NO JOINT EFFUSION. SKIN:? NORMAL FOR ETHNICITY; NO ECCHYMOSIS.? NO LESION. ? GOOD? TURGOR.; NO RASHES :? NORMAL EXTERNAL GENITALIA. PSYCH :? APPROPRIATE MOOD AND AFFECT.? ALERT AWAKE ORIENTED X3 Objective Labs Result Diagrams: 01/16/21 05:20 01/16/21 05:20 Labs: Laboratory Results - last 24 hr 01/16/21 01/16/21 05:20 05:20 WBC 18.7 H RBC 4.60 Hgb 12.7 L Hct 37.8 L MCV 82.2 MCH 27.7 MCHC 33.7 RDW 12.7 Plt Count 314 Neut % (Auto) 92.3 H Lymph % (Auto) 1.7 L [place] % (Auto) 4.7 Eos % (Auto) 0.0 L Baso % (Auto) 1.3 Neut # (Auto) 25046 H Lymph # (Auto) 300 L [place] # (Auto) 900 Eos # (Auto) 0 Baso # (Auto) 200 H Sodium 128 L Potassium 4.5 Chloride 92 L Carbon Dioxide 30 BUN 19 Creatinine 0.75 Estimated GFR > 60.0 BUN/Creatinine Ratio 25.3 H Glucose 209 H Calcium 9.0 Magnesium 2.4 H Total Bilirubin 0.3 AST 61 H ALT 83 H Alkaline Phosphatase 72 Total Protein 6.1 L Albumin 3.5 Globulin 2.6 Albumin/Globulin Ratio 1.3 PFSH Medical History Brachial plexopathy Cervical facet syndrome Cervical radiculopathy at C7 Chronic radicular cervical pain Tendinopathy of left rotator cuff Surgical History Status post cervical spinal fusion Family History Other Medical history non-contributory Social History household members: spouse Smoking Status: Never smoker alcohol intake: current additional social history: Never smoker, no ETOH Assessment & Plan Assessment & Plan narrative: IMPRESSION ? ?COVID-19 PNEUMONIA ON SUPPORTIVE TREATMENT ANTIBIOTICS AND DUONEB TREATMENTS ?POSSIBLE SEPSIS. PRESENT ON ARRIVAL ?LEUKOCYTOSIS.? SLIGHT INCREASED WBC TODAY ?HYPONATREMIA.? CONSIDER SIADH.? ON IV FLUID.? SODIUM LEVEL IMPROVING ?ASTHMA? WITH ACUTE EXACERBATION ?OBESITY.? COUNSELING GIVEN ? ANEMIA.? CHRONIC DISEASE? SUSPECTED ?HYPERLIPIDEMIA PER HISTORY ?HYPERTENSION FOR HISTORY ?PLAN 01/16 STARTED ON SOME DOPAMINE TODAY WILL SWITCH ORAL ANTIBIOTICS TO HOLD TABLETS IN CAPSULE INDICATED CONTINUE OXYGEN THERAPY PREVIOUSLY ORDERED PATIENT IS ON 6 L PER NASAL CANNULA CURRENTLY IF ABLE TO TITRATE BETWEEN 2 AND 4 L , SHOULD BE ABLE TO BE DISCHARGED IN NEXT 24 HOURS TO HOME PATIENT FEELS BETTER ABLE TO FINISH A FULL SENTENCE WITHOUT HAVING TO STOP BECAUSE OF LESS OF BREATH NO FEVER REPORTED OVER LAST 24 HOURS BOWEL MOVEMENT REPORTED WITHOUT DIARRHEA WILL ADD BLOOD PRESSURE MEDICATION DUE TO PERSISTENT HYPERTENSION NOTED OVER THE LAST 24 HOURS ADDITIONAL MANAGEMENT PER CLINICAL COURSE LIKELY DISCHARGE IN NEXT 24 HOURS IF CLINICALLY STABLE 01/15 ? NO INDICATION TO MAKE ANY SIGNIFICANT CHANGES TO HER CURRENT MANAGEMENT ?HIS SODIUM LEVEL IS IMPROVING ?WILL AVOID ANY AGGRESSIVE CORRECTION TO DECREASE THE RISK OF CMP ? WILL ADD SODIUM TABLETS? IF INDICATED IN THE NEXT 48 HOURS TO HELP CORRECT SODIUM APPARENTLY IF INDICATED ?CONTINUE CURRENT ANTIBIOTICS ?NO? DIARRHEA REPORTED.? NO SIGN OF C DIFF COLITIS ?OXYGEN? SUPPLEMENT USING APPROPRIATE DEVICE TO MAINTAIN SAT >88% ?NURSING TO ENCOURAGE PATIENT TO USE IC? DEVICE ORDERED ?PATIENT NEED TO BE ON A BED AT EAST 2 TO 3 TIMES A DAY ?MOST IMPORTANTLY, SHOULD BE ELEVATED WHICH MALE ?HOWEVER, WILL NEED TO MAINTAIN ASPIRATION AND FALL PRECAUTION ALL TIME ?ADDITIONAL MANAGEMENT PER CLINICAL COURSE 01/14 ?DUE TO PATIENT? PRESENTATION, WILL HOLD REMDESEVIR? FOR NOW ?WILL START ON ANTIBIOTICS HOWEVER ?STEROID BE ORDERED Q I.D. ?SCHEDULE AND NEEDED BREATHING TREATMENTS ?AGGRESSIVE PULMONARY TOILETING ? OXYGEN SUPPLEMENTAL MED AND PROPER OXYGEN SATURATION ABOVE 88% AT ALL TIMES ?CONSULT SOCCER BALL ASSEMBLER IF INDICATED CLINICALLY ?CONTINUOUS PULSE OX ORDERED IC? THE ALSO ORDERED ?PATIENT WILL BE FULLY ANTICOAGULATED WITH LOVENOX ? SIGNIFICANT HYPONATREMIA NOTED ON ADMISSION, HIS SURGEON WILL BE REPEATED ?HE WAS STARTED ON NORMAL SALINE ?IF THE REPEAT SODIUM IS CONFIRM,? WILL? TREND SODIUM Q.4 HOURS ?WILL CONSIDER RESTRICTING FLUID WELL SUSPECT THIS IS AN ACUTE EVENT ?PATIENT DENIES ALCOHOL ABUSE.? AND CHRONIC HYPONATREMIA IS NOT SUSPECTED ?MONITOR LIVER AND? KIDNEY FUNCTION CLOSELY ?ADDITIONAL MANAGEMENT PER CLINICAL COURSE Time Spent With Patient Critical Care time: I spent a total of [] minutes of critical care time on this patient's care today; this time is exclusive of procedural time. Quality VTE Deep Vein Thrombosis/Pulmonary Embolism Present on Admission: No
[2021-01-16] MEDS: METOPROLOL ER 25 MG TABLET PO (16:48)
[2021-01-16] MEDS: levoFLOXacin 250 MG TABLET 750 MG PO (17:25)
[2021-01-16] MEDS: MELATONIN 3 MG TABLET 6 MG PO (20:53)
[2021-01-16] MEDS: SENNOSIDES 8.6 MG TABLET 17.2 MG PO (20:53)
[2021-01-16] MEDS: ATORVASTATIN 20 MG TABLET 40 MG PO (20:54)
[2021-01-16] MEDS: TRAZODONE 100 MG TABLET PO (20:55)
[2021-01-16] MEDS: DOXYCYCLINE HYCLATE 100 MG TABLET PO (20:55)
[2021-01-16] MEDS: SODIUM CHLORIDE 1,000 MG TABLET 1000 MG PO (21:25)
[2021-01-16] MEDS: FAMOTIDINE 20 MG TABLET PO (21:26)
[2021-01-17] VITALS: BP 135/90; PULSE 82; RESP 19; TEMP 36.5; O2SAT 93; O2SAT 95
[2021-01-17 04:00] VITALS: BP 156/86; PULSE 103; RESP 18; TEMP 36.9; O2SAT 95
[2021-01-17] MEDS: ACETAMINOPHEN 325 MG TABLET 650 MG PO (04:08)
[2021-01-17 05:40] LABS: Alanine Aminotransferase 127 IU/L (<50); Albumin 3.1 g/dL (3.5-5.0); Albumin Globulin Ratio 1.2 (1.0-2.8); Alkaline Phosphatase 62 U/L (38-126); Aspartate Aminotransferase 58 IU/L (17-59); BUN Creatinine Ratio 27.5 (6-22); Bilirubin Total 0.3 mg/dL (0.2-1.3); Blood Urea Nitrogen 19 mg/dL (9-20); Calcium 8.7 mg/dL (8.4-10.2); Carbon Dioxide 32 mmol/L (22-32); Chloride 94 mmol/L (98-107); Estimated Glomerular Filt Rate > 60.0 mL/min (>60); Globulin 2.5 g/dL (1.7-4.1); Glucose 170 mg/dL (80-110); HEMOLYSIS < 15 (0-50); Magnesium 2.4 mg/dL (1.6-2.3); Potassium 4.8 mmol/L (3.4-5.1); Sodium 130 mmol/L (137-145); Total Protein 5.6 g/dL (6.3-8.2)
[2021-01-17 05:42] LABS: Add Manual Diff / Slide Review NO; Basophils Absolute Auto 0 /uL (0-100); Basophils Percent Auto 0.1 % (0-2); Eosinophils Absolute Auto 0 /uL (0-450); Hematocrit 34.7 % (41-53); Hemoglobin 11.6 g/dL (13.5-17.5); Lymphocytes Absolute Auto 400 /uL (1100-4500); Lymphocytes Percent Auto 2.2 % (25-40); Mean Corpuscular HGB Conc 33.5 % (30-36); Mean Corpuscular Hemoglobin 27.9 PG (26-34); Mean Corpuscular Volume 83.3 fL (80-100); Monocytes Absolute Auto 1300 /uL (0-900); Monocytes Percent Auto 8.6 % (3-14); Neutrophils Absolute Auto 14000 /uL (1500-7000); Neutrophils Percent Auto 89.1 % (50-75); Platelet Count 343 X10^3/uL (150-400); Red Blood Cell Count 4.16 X10^6/uL (4.5-5.9); Red Cell Distribution Width 12.7 % (11.6-14.8); White Blood Cell Count 15.7 X10^3/uL (4.5-11.0)
[2021-01-17] MEDS: levoFLOXacin 250 MG TABLET 750 MG PO (06:15)
[2021-01-17 07:35] VITALS: BP 170/86; PULSE 91; RESP 19; TEMP 36.3; O2SAT 90
[2021-01-17 08:00] VITALS: O2SAT 94
[2021-01-17 08:17] VITALS: PULSE 94; RESP 24; O2SAT 95
[2021-01-17] MEDS: BUDESONIDE 0.5 MG/2 ML NEB INH (08:17)
[2021-01-17] MEDS: ALBUTEROL/IPRATROPIUM 3 ML AMPUL INH (08:17)
[2021-01-17 08:25] VITALS: PULSE 92; RESP 22
[2021-01-17] MEDS: INSULIN LISPRO 100 UNIT/ML 3ML VIAL SUBCUT (09:39)
[2021-01-17] MEDS: DOXYCYCLINE HYCLATE 100 MG TABLET PO (09:43)
[2021-01-17] MEDS: ENOXAPARIN 100 MG/ML SYRINGE SUBCUT (09:43)
[2021-01-17] MEDS: FAMOTIDINE 20 MG TABLET PO (09:43)
[2021-01-17] MEDS: CHOLECALCIFEROL (VITAMIN D3) 1,000 UNIT TABLET 1000 UNIT PO (09:43)
[2021-01-17] MEDS: BISACODYL 10 MG SUPP PR (09:44)
[2021-01-17] MEDS: ZINC SULFATE 220 MG CAPSULE PO (09:44)
[2021-01-17] MEDS: GABAPENTIN 300 MG CAPSULE PO (09:44)
[2021-01-17] MEDS: MULTIVIT,CALC,MINS/IRON/FOLIC 1 TABLET 1 TAB PO (09:44)
[2021-01-17] MEDS: SODIUM CHLORIDE 1,000 MG TABLET 1000 MG PO (09:44)
[2021-01-17] MEDS: LOSARTAN 25 MG TABLET PO (09:44)
[2021-01-17] MEDS: METOPROLOL ER 25 MG TABLET 50 MG PO (09:44)
[2021-01-17] MEDS: polyethylene glycoL 3350 17 GM POWD.PACK 34 GM PO (09:44)
--- NOTE | 2021-01-17 10:48 | P.DS_ITS ---
History of Present Illness History of Present Illness Date Patient Seen: 01/17/21 Chief complaint: not feeling well, Covic + home test Narrative: THIS IS A 70-YEAR-OLD MALE WITH A HISTORY OF ASTHMA. PATIENT DENIES ANY RECENT TRAVEL. 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 PATIENT PRESENTED TO THE HOSPITAL TO THE REPORTING INCREASING MALAISE WELL INCREASING COUGH. HE REPORTED THAT HE SELF TESTED HIMSELF AT HOME AND RECEIVE A POSITIVE RESPONSE HE DECIDED TO COME TO THE ER WHERE AGAIN HE WAS TESTED AND WAS POSITIVE. HE REPORTED SOME SHORTNESS OF BREATH WHICH WAS BETTER AT REST AND WAS WORST WITH EXERTION. REPORTED IT TO BE TRUE WELL. DENIES ANY CHEST PAIN. NO CHEST PALPITATION. NO CHEST PRESSURE. NO PRIOR HISTORY OF CAD. Discharge Providers Provider Date of admission: 01/14/21 17:32 Discharge Date: 01/17/21 Primary care physician: Alvina Beth MD Consults: 01/14/21 18:11 Consult to Discharge Planning Routine Comment: Discharge provider: Trena Calderon DO Summary Hospital Course Discharge Diagnosis: COVID-19 PNEUMONIA . RESPIRATORY STATUS IMPROVED. DISCHARGED ON SUPPORTIVE TREATMENT ANTIBIOTICS AND DUONEB TREATMENTS ?POSSIBLE SEPSIS. PRESENT ON ARRIVAL. RESOLVED ?LEUKOCYTOSIS.? REACTIVE ?HYPONATREMIA.? DISCHARGED ON SODIUM TABLETS ?ASTHMA? WITH ACUTE EXACERBATION. IMPROVED ?OBESITY.? COUNSELING GIVEN REGARDING LIFESTYLE CHANGES ? ANEMIA.? CHRONIC DISEASE? SUSPECTED. NO ACUTE TREATMENT INDICATED ?HYPERLIPIDEMIA PER HISTORY ?HYPERTENSION FOR HISTORY. CHANGE TO HIS HOME MEDS MED Hospital Course: THIS IS A VERY PLEASANT 70-YEAR-OLD MALE ADMITTED TO THE HOSPITAL WITH COVID PNEUMONIA. UNDERLYING CHRONIC ASTHMA EXACERBATION ALSO SUSPECTED. HE WAS TREATED CONSERVATIVELY WITH ANTIBIOTICS, DUONEB TREATMENT WELL STEROIDS THERAPY. HAS DONE VERY WELL WITH THE CURRENT MANAGEMENT. HE IS ON 3 L PER NASAL CANNULA THIS MORNING. REFILL, PATIENT COULD BE DISCHARGED TO HOME. HOME HEALTH WILL BE ORDERED. HE WILL BE DISCHARGED ON A 7 TO TEN-DAY COURSE OF ANTIBIOTICS WITH DUONEB TREATMENTS. A STEROID TAPER DOSE WE ALSO BE ORDERED. PATIENT WILL NEED TO FOLLOW CDC RECOMMENDATION REGARD TO CURRENT ONGOING PANDEMIC ADDITIONAL MANAGEMENT PER OUTPATIENT PROVIDERS Status at Discharge Cognitive/behavioral status at discharge: oriented and at baseline, oriented Functional status at discharge: independent ambulation Overall status at discharge: patient is progressing back to baseline Time Spent with Patient Time spent: Greater than 30 minutes Exam Vital Signs (past 8 hours): - 01/17/21 04:00 01/17/21 07:35 01/17/21 08:17 Temperature 98.5 F 97.4 F L Pulse Rate 103 H 91 H 94 H Respiratory Rate 18 19 24 Blood Pressure 156/86 H 170/86 H Pulse Oximetry 95 90 L 95 01/17/21 08:25 Temperature Pulse Rate 92 H Respiratory Rate 22 Blood Pressure Pulse Oximetry Oxygen Delivery Method Nasal Cannula Oxygen Flow Rate 2.5 Narrative Exam Narrative: NO ACUTE DISTRESS.? PATIENT IS ALERT ORIENTED X3. VITAL SIGNS STABLE HEAD ATRAUMATIC NORMOCEPHALIC NECK : SUPPLE WITHOUT ADENOPATHY NO CAROTID BRUITS EYE:? EOMI, PERRLA, NORMAL CONJUNCTIVA; NO JAUNDICE CHEST:? REGULAR RATE.? ? NO RUBS.? PMI IS NON DISPLACED.? NO MURMURS; NORMAL S1- S2 PULMONARY: ?? LIMITED WHEEZING NOTED TODAY ON EXAM. ? NO RALES;? NO PLEURAL RUBS; DECREASED BS OVER THE BASES.? MILD BIBASILAR CRACKLES NOTED; NO INCREASED DULLNESS TO PERCUSSION ABDOMEN:? SOFT.? NONTENDER.? NONDISTENDED.? BOWEL SOUNDS ARE PRESENT IN ALL 4 QUADRANTS.? NO MASS. EXTREMITIES: NO EDEMA..? NO CYANOSIS CLUBBING NOTED. NEURO:? CRANIAL NERVES 2-12 GROSSLY INTACT. NO FOCAL NEUROLOGICAL DEFICIT NOTED. MSK:? NORMAL RANGE OF MOTION FOR AGE.? NO JOINT EFFUSION. SKIN:? NORMAL FOR ETHNICITY; NO ECCHYMOSIS.? NO LESION. ? GOOD? TURGOR.; NO RASHES :? NORMAL EXTERNAL GENITALIA. PSYCH :? APPROPRIATE MOOD AND AFFECT.? ALERT AWAKE ORIENTED X3 Objective Labs Result Diagrams: 01/17/21 05:09 01/17/21 05:09 Labs: Laboratory Results - last 24 hr 01/17/21 01/17/21 05:09 05:09 WBC 15.7 H RBC 4.16 L Hgb 11.6 L Hct 34.7 L MCV 83.3 MCH 27.9 MCHC 33.5 RDW 12.7 Plt Count 343 Neut % (Auto) 89.1 H Lymph % (Auto) 2.2 L [place] % (Auto) 8.6 Eos % (Auto) 0.0 L Baso % (Auto) 0.1 Neut # (Auto) 35500 H Lymph # (Auto) 400 L [place] # (Auto) 1300 H Eos # (Auto) 0 Baso # (Auto) 0 Sodium 130 L Potassium 4.8 Chloride 94 L Carbon Dioxide 32 BUN 19 Creatinine 0.69 Estimated GFR > 60.0 BUN/Creatinine Ratio 27.5 H Glucose 170 H Calcium 8.7 Magnesium 2.4 H Total Bilirubin 0.3 AST 58 ALT 127 H Alkaline Phosphatase 62 Total Protein 5.6 L Albumin 3.1 L Globulin 2.5 Albumin/Globulin Ratio 1.2 PFSH Medical History Brachial plexopathy Cervical facet syndrome Cervical radiculopathy at C7 Chronic radicular cervical pain Tendinopathy of left rotator cuff Surgical History Status post cervical spinal fusion Family History Other Medical history non-contributory Social History household members: spouse Smoking Status: Never smoker alcohol intake: current additional social history: Never smoker, no ETOH Discharge Plan Discharge Plan Patient Disposition: Home Health Service Discharge orders & Medications Prescriptions: New ipratropium-albuterol 0.5 mg-3 mg(2.5 mg base)/3 mL Solution For Nebulization 3 ml INH [id number] PRN (Reason: Shortness Of Breath Or Wheezing) Qty: 60 2RF albuterol sulfate 2.5 mg /3 mL (0.083 %) Solution For Nebulization 2.5 mg INH [id number] PRN (Reason: Shortness Of Breath Or Wheezing) Qty: 40 0RF doxycycline hyclate 100 mg Tablet 100 mg PO BID Qty: 20 0RF cholecalciferol (vitamin D3) 25 mcg (1,000 unit) Tablet 1,000 unit PO DAILY Qty: 60 2RF levofloxacin 500 mg tablet 500 mg PO 0700 Qty: 7 0RF sennosides [senna] 8.6 mg Tablet 17.2 mg PO BEDTIME Qty: 60 2RF sucralfate 1 gram Tablet 1 gm PO ACHS Qty: 120 2RF melatonin 3 mg Tablet 6 mg PO BEDTIME Qty: 60 2RF trazodone 100 mg Tablet 100 mg PO BEDTIME Qty: 60 2RF sodium chloride 1,000 mg Tablet,Soluble 1,000 mg PO BID Qty: 10 0RF zinc sulfate 50 mg zinc (220 mg) Capsule 220 mg PO DAILY Qty: 60 2RF Thera M Plus (ferrous fumarat) 9 mg iron-400 mcg Tablet 1 tab PO DAILY Qty: 30 2RF metoprolol succinate 50 mg capsule,sprinkle,ER 24hr 50 mg PO DAILY Qty: 60 2RF losartan 25 mg Tablet 25 mg PO DAILY Qty: 30 2RF famotidine 40 mg tablet 40 mg PO BID Qty: 60 2RF prednisone 10 mg tablet 10 mg PO DIRECTED Qty: 30 0RF Rx Instructions: 40MG PO DAILY X 3 DAYS 30MG PO DAILY X 3 DAYS 20MG PO DAILY X 4 DAYS 10MG PO DAILY X 4 DAYS 5MG PO DAILY X 4 DAYS Continued albuterol sulfate 90 mcg/actuation HFA aerosol inhaler 1 puff Inhalation PRN PRN (Reason: Shortness Of Breath) Qty: 1 0RF lidocaine 5 % adhesive patch,medicated 1 patch TOP DAILY PRN (Reason: pain) Qty: 15 0RF Rx Instructions: leave on most painful area for up to 12 hrs atorvastatin [Lipitor] 40 mg tablet 40 mg PO BEDTIME 0RF acetaminophen [Tylenol Extra Strength] 500 mg tablet 1,000 mg PO TID PRN (Reason: pain) 0RF meloxicam 7.5 mg tablet 7.5 mg PO BID Qty: 60 5RF gabapentin 300 mg capsule 300 mg PO .COMPLEX Qty: 90 2RF Rx Instructions: 1-2 PO Tid to begin at HS and titrate to pain relief Changed fluticasone propion-salmeterol [Advair Diskus] 500 MCG/50 MCG blister with device 2 puff INH BIDRT Qty: 1 0RF Discontinued omeprazole 20 mg capsule,delayed release(DR/EC) 40 mg PO DAILY 0RF telmisartan [Micardis] 80 mg tablet 80 mg PO DAILY 0RF ketorolac 10 mg tablet 10 mg PO TID PRN (Reason: pain) Qty: 14 0RF hydrochlorothiazide 25 mg tablet 25 mg PO DAILY 0RF Follow up/Referrals: Alvina Beth MD [Primary Care Provider] - Diet/Activity/Treatments Diet: Carb-consistent/Diabetic, Low-fat and Low-cholesterol Diet comment: MECHANICAL SOFT Activity: TOLERATED Oxygen: 2-4 L CONTINUOUS OVER THE NEXT FEW DAYS. THEN NEEDED DURING EXERTION Skin/Wound/Dressing Care Report to your healthcare provider any signs of infection, such as:: chills, fever, night sweats and increased pain Discharge Data Primary Care Provider: Alvina Beth Quality VTE Deep Vein Thrombosis/Pulmonary Embolism Present on Admission: No
[2021-01-17] MEDS: SUCRALFATE 1 GM TABLET PO (11:39)
--- NOTE | 2021-01-17 13:22 | PC.NURSE ---
Pt has received discharge orders to return home and further his rehabilitation. Education regarding his home medication administration as well as activity, O2 use and follow up has been reviewed with him. Pt has been instructed to belt picker his prescriptions from his pharmacy in [place] where they have been electronically sent. Pt has acknowledged understanding. Pt has been escorted out of the hospital via wheelchair by PAOLO Guillermo at approx. 1310 to his awaiting car.
== END 2021-01-17 13:10 | disposition home or self-care (01) | DRG 177 ==
LOC: ED 16:26 → AC 17:33
PROVIDERS: Internal Medicine; Admitting Provider Hospitalist; Emergency Provider Emergency Medicine; Family Provider Internal Medicine; PCP Internal Medicine; Referring Provider Emergency Medicine; Visit Provider Hospitalist
DX: U07.1 COVID-19 (principal); J12.82 Pneumonia due to coronavirus disease 2019; J96.01 Acute respiratory failure with hypoxia; E87.1 Hypo-osmolality and hyponatremia; J45.901 Unspecified asthma with (acute) exacerbation; E66.9 Obesity, unspecified; E78.5 Hyperlipidemia, unspecified; I10 Essential (primary) hypertension; Z68.33 Body mass index [BMI] 33.0-33.9, adult
CPT/HCPCS: 36415; 71045; 80048; 80053; 82962; 83605; 83690; 83735; 84100; 84145; 84295; 85025; 87040; 87635; 93005; 94640; 94760; 94762; 96360; 99284; C9803; A9270; J1642; J1650; J1815; J1956; J2270; J2405; J2920; J2930

== ENCOUNTER → 2021-07-13 17:09 | Outpatient (CLI) | payer MEDICARE, OTHER, SELFPAY ==
[2021-01-14 22:07] VITALS: BMI 33.7
--- NOTE | 2021-07-13 17:12 | DI.MRI.S_ITS ---
PROCEDURE: MR HEAD/BRAIN WO CON INDICATIONS: HEADACHE USPECIFIED TECHNIQUE: Noncontrast axial T1 spin echo, axial T2 fast spin echo, sagittal and axial FLAIR, coronal T2 fast spin echo, axial gradient echo, axial diffusion and ADC through the brain. COMPARISON: None. FINDINGS: Image quality: Excellent. CSF Spaces: Basal cisterns are patent. No extra-axial fluid collections. Ventricles are normal in size and shape. Brain: No intracranial masses or hemorrhage. Wallace/white matter interface is normal. Brainstem appears normal. Diffusion-weighted images demonstrate no acute ischemic insult. No chronic ischemic insults. Normal intravascular flow voids are present. Skull and face: Calvarium has normal marrow signal. Orbits appear normal. Bilateral intraocular lens replacements noted. Sinuses: Sinuses and mastoids are clear. IMPRESSION: 1. Unremarkable MRI of the brain Approved by: Lamont Rainey M.D. on 07/13/2021 at 17:03
== END ==
PROVIDERS: Family Provider Internal Medicine; PCP Internal Medicine; Referring Provider Internal Medicine; Visit Provider Internal Medicine
DX: R51.9 Headache, unspecified (principal)
CPT/HCPCS: 70551

== ENCOUNTER 2022-04-27 17:19 | Emergency (ER) | payer MEDICARE, OTHER, SELFPAY ==
[2021-01-14 22:07] VITALS: BMI 33.7
[2022-04-27 18:01] VITALS: BP 173/81; PULSE 59; RESP 16; TEMP 36.2; O2SAT 96; BMI 33.0
--- NOTE | 2022-04-27 18:04 | DI.RAD.S_ITS ---
PROCEDURE: XR RIBS LT MIN 3V W CXR1V INDICATIONS: fall 10 days ago with rib pain TECHNIQUE: 2 views of the left ribs were acquired, along with a single view chest. COMPARISON: None. FINDINGS: Surgical changes and devices: None. Bones and chest wall: No fractures or dislocations. No suspicious bony lesions. Overlying soft tissues appear unremarkable. Lungs and pleura: No pleural effusions or pneumothorax. Lungs appear clear. Mediastinum: Mediastinal contours appear normal. Heart size is normal. IMPRESSION: Normal chest x-ray left ribs peer Dictated by: Roberto Lewis M.D. on 04/27/2022 at 17:59 Approved by: Roberto Lewis M.D. on 04/27/2022 at 18:00
[2022-04-27 20:00] VITALS: BP 148/74; PULSE 58; RESP 16; O2SAT 96
--- NOTE | 2022-04-27 20:15 | ED.FALL ---
HPI - Fall General Chief Complaint: Fall Stated Complaint: fall, lt sided rib pain Time Seen by Provider: 04/27/22 19:55 Source: patient Mode of arrival: Ambulatory History of Present Illness HPI Narrative: Patient is a 71-year-old male who is here for evaluation of injuries that he sustained when he fell approximately 10 days ago. He states that he injured his left-sided chest wall. It has been persistently sore since that time. Sore to move his arm and also to touch the left side of his chest and also debridement to cough. Patient fell because he slipped on some rocks. He did hit his head. No loss of consciousness. Not on blood thinners. Related Data Home Medications Medication Instructions Recorded Confirmed atorvastatin 40 mg tablet (Lipitor) 40 mg PO BEDTIME 01/27/18 01/14/21 acetaminophen 500 mg tablet 1,000 mg PO TID PRN pain 12/25/18 01/14/21 (Tylenol Extra Strength) Previous Rx's Medication Instructions Recorded lidocaine 5 % topical patch 1 patch topical DAILY PRN pain #15 05/03/19 ea gabapentin 300 mg capsule 300 mg PO .COMPLEX #90 caps 01/07/20 meloxicam 7.5 mg tablet 7.5 mg PO BID inflammatory pain 01/07/20 #60 tabs albuterol sulfate 2.5 mg/3 mL 2.5 mg (3 mL) INH RTQ4HR PRN 01/17/21 (0.083 %) solution for nebulization Shortness Of Breath Or Wheezing #40 mL albuterol sulfate 90 mcg/actuation 1 puff inhalation PRN PRN 01/17/21 aerosol inhaler Shortness Of Breath #1 g cholecalciferol (vitamin D3) 25 1,000 unit PO DAILY #60 tabs 01/17/21 mcg (1,000 unit) tablet doxycycline hyclate 100 mg tablet 100 mg PO BID #20 tabs 01/17/21 famotidine 40 mg tablet 40 mg PO BID #60 tabs 01/17/21 fluticasone 500 mcg-salmeterol 50 2 puff INH BIDRT #1 ea 01/17/21 mcg/dose blistr powdr for inhalation (Advair Diskus) ipratropium 0.5 mg-albuterol 3 mg 3 ml INH [id number] PRN Shortness Of 11/27/21 (2.5 mg base)/3 mL nebulization Breath Or Wheezing #60 mL soln levofloxacin 500 mg tablet 500 mg PO 0700 #7 tabs 01/17/21 losartan 25 mg tablet 25 mg PO DAILY #30 tabs 01/17/21 melatonin 3 mg tablet 6 mg PO BEDTIME #60 tabs 01/17/21 metoprolol succinate 50 mg capsule 50 mg PO DAILY #60 ea 01/17/21 sprinkle, ext. release 24 hr multivitamin-iron 9 mg-folic acid 1 tab PO DAILY #30 tabs 01/17/21 400 mcg-calcium and minerals tablet (Thera M Plus (ferrous fumarate)) prednisone 10 mg tablet 10 mg PO DIRECTED #30 tabs 01/17/21 sennosides 8.6 mg tablet (senna) 17.2 mg PO BEDTIME #60 tabs 01/17/21 sodium chloride 1,000 mg soluble 1,000 mg PO BID #10 tabs 01/17/21 tablet sucralfate 1 gram tablet 1 gm PO ACHS #120 tabs 01/17/21 trazodone 100 mg tablet 100 mg PO BEDTIME #60 tabs 01/17/21 zinc sulfate 50 mg zinc (220 mg) 220 mg PO DAILY #60 caps 01/17/21 capsule hydrocodone 5 mg-acetaminophen 325 1 tab PO Q8H PRN pain #10 tabs 04/27/22 mg tablet Allergies Allergy/AdvReac Type Severity Reaction Status Date / Time sulfamethoxazole Allergy Severe rash and Verified 04/27/22 18:01 [From ] swelling trimethoprim [From ] Allergy Severe rash and Verified 04/27/22 18:01 swelling Penicillins [PENICILLINS] Allergy Unknown rash and Verified 04/27/22 18:01 swelling shellfish derived AdvReac Mild Swelling Verified 04/27/22 18:01 of Lip/Tongue/Throat Review of Systems Constitutional Constitutional: Reports system reviewed and no additional complaints, except as documented Cardiovascular Cardiovascular: Reports system reviewed and no additional complaints, except as documented Respiratory Respiratory: Reports system reviewed and no additional complaints, except as documented Gastrointestinal Gastrointestinal: Reports system reviewed and no additional complaints, except as documented Integumentary/Breasts Skin/Breast: Reports system reviewed and no additional complaints, except as documented Neurologic Neurologic: Reports system reviewed and no additional complaints, except as documented Patient History Medical History Brachial plexopathy Cervical facet syndrome Cervical radiculopathy at C7 Chronic radicular cervical pain Tendinopathy of left rotator cuff Surgical History Status post cervical spinal fusion Family History Other Medical history non-contributory Social History household members: spouse Smoking Status: Never smoker alcohol intake: current additional social history: Never smoker, no ETOH Smoking Status: Never smoker alcohol intake frequency: holidays/special occasions only Substance Use Type: does not use Exam Initial Vital Signs Initial Vital Signs: Vital Signs Temperature 97.2 F L 04/27/22 18:01 Pulse Rate 59 L 04/27/22 18:01 Respiratory Rate 16 04/27/22 18:01 Blood Pressure 173/81 H 04/27/22 18:01 Pulse Oximetry 96 04/27/22 18:01 Oxygen Delivery Method Room Air 04/27/22 18:01 Const General: cooperative, comfortable and No ill appearing HENMT Head: normal to inspection Chest Chest: No crepitus and tenderness (Left-sided chest wall) Resp Effort & Inspection: normal respiratory effort Auscultation: clear to auscultation bilaterally Cardio Rate: regular rate Skin General: no rashes or lesions noted Neuro General: patient alert, patient awake and moves all extremities Extrem General: normal to inspection and capillary refill normal Course Orders Ordered: Discontinued Medications Hydrocodone Bitart/Acetaminophen (Hydrocodone/Acet 5/325 Prepack) 1 bottle MISC SEEINSTR ONE Stop: 04/27/22 20:16 Last Admin: 04/27/22 20:38 Dose: 1 bottle Documented By: AP Vital Signs Vital signs: Vital Signs - 8 hr 04/27/22 20:00 Pulse Rate 58 L Respiratory Rate 16 Blood Pressure 148/74 H Pulse Oximetry 96 Oxygen Delivery Method Room Air MDM - Fall Imaging Data rib x-ray: Radiologist's Impression: PROCEDURE:? XR RIBS LT MIN 3V W CXR1V ? INDICATIONS:? fall 10 days ago with rib pain ? TECHNIQUE:? 2 views of the left ribs were acquired, along with a single view chest.? ? COMPARISON:? None. ? FINDINGS:? ? Surgical changes and devices:? None.? ? Bones and chest wall:? No fractures or dislocations.? No suspicious bony lesions.? Overlying soft tissues appear unremarkable.? ? Lungs and pleura:? No pleural effusions or pneumothorax.? Lungs appear clear.? ? Mediastinum:? Mediastinal contours appear normal.? Heart size is normal.? ? IMPRESSION:? Normal chest x-ray left ribs peer MDM Narrative Medical decision making narrative: No respiratory distress. No fractures noted on the rib x-rays however he is had persistent symptoms for the past 10 days which does have some concern about a potential occult fracture. Chest x-ray shows no lung pathology. I did discuss this with the patient. We did discuss the possibility of an occult fracture. This was clearly a mechanical fall. Will discharge patient home with attempted symptom control. He was given return precautions and follow-up instructions. He expressed understanding and agreement. Discharge Plan Departure Patient Disposition: Home Clinical Impression: Contusion of rib on left side Instructions: DI for Rib Contusion Activity Restrictions/Additional Instructions: Recommend that you use the medication as directed. Continue to use the meloxicam and the Tylenol during the day and the hydrocodone at night to help sleep. Contact your primary doctor for follow-up. Return to the emergency department for any new or worsening symptoms. Prescriptions: New hydrocodone-acetaminophen 5-325 mg tablet 1 tab PO Q8H PRN (Reason: pain) Qty: 10 0RF No Action ipratropium-albuterol 0.5 mg-3 mg(2.5 mg base)/3 mL Solution For Nebulization 3 ml INH [id number] PRN (Reason: Shortness Of Breath Or Wheezing) Qty: 60 2RF albuterol sulfate 2.5 mg /3 mL (0.083 %) Solution For Nebulization 2.5 mg INH RTQ4HR PRN (Reason: Shortness Of Breath Or Wheezing) Qty: 40 0RF doxycycline hyclate 100 mg Tablet 100 mg PO BID Qty: 20 0RF cholecalciferol (vitamin D3) 25 mcg (1,000 unit) Tablet 1,000 unit PO DAILY Qty: 60 2RF levofloxacin 500 mg tablet 500 mg PO 0700 Qty: 7 0RF sennosides [senna] 8.6 mg Tablet 17.2 mg PO BEDTIME Qty: 60 2RF sucralfate 1 gram Tablet 1 gm PO ACHS Qty: 120 2RF melatonin 3 mg Tablet 6 mg PO BEDTIME Qty: 60 2RF trazodone 100 mg Tablet 100 mg PO BEDTIME Qty: 60 2RF sodium chloride 1,000 mg Tablet,Soluble 1,000 mg PO BID Qty: 10 0RF zinc sulfate 50 mg zinc (220 mg) Capsule 220 mg PO DAILY Qty: 60 2RF Thera M Plus (ferrous fumarat) 9 mg iron-400 mcg Tablet 1 tab PO DAILY Qty: 30 2RF metoprolol succinate 50 mg capsule,sprinkle,ER 24hr 50 mg PO DAILY Qty: 60 2RF losartan 25 mg Tablet 25 mg PO DAILY Qty: 30 2RF famotidine 40 mg tablet 40 mg PO BID Qty: 60 2RF fluticasone propion-salmeterol [Advair Diskus] 500 MCG/50 MCG blister with device 2 puff INH BIDRT Qty: 1 0RF albuterol sulfate 90 mcg/actuation HFA aerosol inhaler 1 puff Inhalation PRN PRN (Reason: Shortness Of Breath) Qty: 1 0RF prednisone 10 mg tablet 10 mg PO DIRECTED Qty: 30 0RF Rx Instructions: 40MG PO DAILY X 3 DAYS 30MG PO DAILY X 3 DAYS 20MG PO DAILY X 4 DAYS 10MG PO DAILY X 4 DAYS 5MG PO DAILY X 4 DAYS lidocaine 5 % adhesive patch,medicated 1 patch TOP DAILY PRN (Reason: pain) Qty: 15 0RF Rx Instructions: leave on most painful area for up to 12 hrs atorvastatin [Lipitor] 40 mg tablet 40 mg PO BEDTIME acetaminophen [Tylenol Extra Strength] 500 mg tablet 1,000 mg PO TID PRN (Reason: pain) meloxicam 7.5 mg tablet 7.5 mg PO BID Qty: 60 5RF gabapentin 300 mg capsule 300 mg PO .COMPLEX Qty: 90 2RF Rx Instructions: 1-2 PO Tid to begin at HS and titrate to pain relief Referrals: Alvina Beth MD [Primary Care Provider] - Stand Alone Forms: Patient Portal/API
--- NOTE | 2022-04-27 20:16 | PC.NURSE ---
he has a wallet with 7 dollars grider and some credit cards.
[2022-04-27] MEDS: HYDROCODONE/ACET 5/325 PREPACK 1 BOTTLE MISC (20:38)
== END 2022-04-27 20:43 | disposition home or self-care (01) ==
PROVIDERS: Emergency Provider Emergency Medicine; Family Provider Internal Medicine; PCP Internal Medicine
DX: S20.212A Contusion of left front wall of thorax, initial encounter (principal); W18.30XA Fall on same level, unspecified, initial encounter
CPT/HCPCS: 71101; 99283

== ENCOUNTER 2022-05-02 09:40 | Emergency (ER) | payer MEDICARE, OTHER, SELFPAY ==
[2021-01-14 22:07] VITALS: BMI 33.7
[2022-05-02] VITALS (10 sets, daily range): BP systolic 134–149; BP diastolic 72–87; PULSE 46–74; RESP 15–27; TEMP 36.9; O2SAT 94–99; BMI 33.0
--- NOTE | 2022-05-02 09:42 | DI.RAD.S_ITS ---
PROCEDURE: XR CHEST 1V INDICATIONS: chest pain TECHNIQUE: One view of the chest was acquired. COMPARISON: [facility], CR, XR CHEST 1V, 01/14/2021, 16:32. [facility], CR, XR CHEST 1V, 09/05/2019, 20:15. FINDINGS: Surgical changes and devices: Partially seen cervical fusion hardware. Lungs and pleura: Right hemidiaphragm eventration. No dense consolidation. No pleural effusion. Mediastinum: Mediastinal contours appear normal. Heart size is normal. Bones and chest wall: No suspicious bony lesions. Overlying soft tissues appear unremarkable. IMPRESSION: Right hemidiaphragm eventration. No pulmonary consolidation or pleural effusion identified. Dictated by: Jama Nayak M.D. on 05/02/2022 at 10:19 Approved by: Jama Nayak M.D. on 05/02/2022 at 10:20
[2022-05-02 09:57] LABS: Add Manual Diff / Slide Review NO; Basophils Absolute Auto 100 /uL (0-100); Basophils Percent Auto 0.6 % (0-2); Eosinophils Absolute Auto 300 /uL (0-450); Eosinophils Percent Auto 2.6 % (2-4); Hematocrit 44.2 % (41-53); Lymphocytes Absolute Auto 1200 /uL (1100-4500); Lymphocytes Percent Auto 11.3 % (25-40); Mean Corpuscular HGB Conc 33.9 % (30-36); Mean Corpuscular Volume 82.8 fL (80-100); Monocytes Absolute Auto 800 /uL (0-900); Monocytes Percent Auto 7.3 % (3-14); Neutrophils Absolute Auto 8100 /uL (1500-7000); Neutrophils Percent Auto 78.2 % (50-75); Platelet Count 191 X10^3/uL (150-400); Red Blood Cell Count 5.34 X10^6/uL (4.5-5.9); Red Cell Distribution Width 13.8 % (11.6-14.8); White Blood Cell Count 10.4 X10^3/uL (4.5-11.0)
--- NOTE | 2022-05-02 09:59 | ED_ITS ---
HPI - Chest Pain General Chief Complaint: Chest Pain Stated Complaint: chest pain Time Seen by Provider: 05/02/22 09:41 Source: patient Mode of arrival: Family Vehicle Limitations: no limitations History of Present Illness HPI narrative: Patient is a 71-year-old male who I evaluated here in the emergency department a couple days ago for left-sided chest discomfort. During that visit who is approximately 10 days after a fall. He had rib x-rays which did not show any acute pathology however it been 10 days since the fall and I discussed with him the possibility of an occult rib fracture. He is now approximately 14 days from that initial fall. He states that last evening he had a sudden change in the pain in his now worse specifically when he is taking a deep breath. No abdominal pain. No fevers. It is somewhat worse to touch but it seems to be more when he is taking a breath. Related Data Home Medications Medication Instructions Recorded Confirmed atorvastatin 40 mg tablet (Lipitor) 40 mg PO BEDTIME 01/27/18 01/14/21 acetaminophen 500 mg tablet 1,000 mg PO TID PRN pain 12/25/18 01/14/21 (Tylenol Extra Strength) Previous Rx's Medication Instructions Recorded lidocaine 5 % topical patch 1 patch topical DAILY PRN pain #15 05/03/19 ea gabapentin 300 mg capsule 300 mg PO .COMPLEX #90 caps 01/07/20 meloxicam 7.5 mg tablet 7.5 mg PO BID inflammatory pain 01/07/20 #60 tabs albuterol sulfate 2.5 mg/3 mL 2.5 mg (3 mL) INH RTQ4HR PRN 01/17/21 (0.083 %) solution for nebulization Shortness Of Breath Or Wheezing #40 mL albuterol sulfate 90 mcg/actuation 1 puff inhalation PRN PRN 01/17/21 aerosol inhaler Shortness Of Breath #1 g cholecalciferol (vitamin D3) 25 1,000 unit PO DAILY #60 tabs 01/17/21 mcg (1,000 unit) tablet doxycycline hyclate 100 mg tablet 100 mg PO BID #20 tabs 01/17/21 famotidine 40 mg tablet 40 mg PO BID #60 tabs 01/17/21 fluticasone 500 mcg-salmeterol 50 2 puff INH BIDRT #1 ea 01/17/21 mcg/dose blistr powdr for inhalation (Advair Diskus) ipratropium 0.5 mg-albuterol 3 mg 3 ml INH [id number] PRN Shortness Of 01/17/21 (2.5 mg base)/3 mL nebulization Breath Or Wheezing #60 mL soln levofloxacin 500 mg tablet 500 mg PO 0700 #7 tabs 01/17/21 losartan 25 mg tablet 25 mg PO DAILY #30 tabs 01/17/21 melatonin 3 mg tablet 6 mg PO BEDTIME #60 tabs 01/17/21 metoprolol succinate 50 mg capsule 50 mg PO DAILY #60 ea 01/17/21 sprinkle, ext. release 24 hr multivitamin-iron 9 mg-folic acid 1 tab PO DAILY #30 tabs 01/17/21 400 mcg-calcium and minerals tablet (Thera M Plus (ferrous fumarate)) prednisone 10 mg tablet 10 mg PO DIRECTED #30 tabs 01/17/21 sennosides 8.6 mg tablet (senna) 17.2 mg PO BEDTIME #60 tabs 01/17/21 sodium chloride 1,000 mg soluble 1,000 mg PO BID #10 tabs 01/17/21 tablet sucralfate 1 gram tablet 1 gm PO ACHS #120 tabs 01/17/21 trazodone 100 mg tablet 100 mg PO BEDTIME #60 tabs 01/17/21 zinc sulfate 50 mg zinc (220 mg) 220 mg PO DAILY #60 caps 01/17/21 capsule hydrocodone 5 mg-acetaminophen 325 1 tab PO Q8H PRN pain #10 tabs 04/27/22 mg tablet meclizine 25 mg tablet 25 mg PO BID PRN dizziness #14 tabs 05/02/22 Allergies Allergy/AdvReac Type Severity Reaction Status Date / Time sulfamethoxazole Allergy Severe rash and Verified 05/02/22 09:58 [From ] swelling trimethoprim [From ] Allergy Severe rash and Verified 05/02/22 09:58 swelling Penicillins [PENICILLINS] Allergy Unknown rash and Verified 05/02/22 09:58 swelling shellfish derived AdvReac Mild Swelling Verified 05/02/22 09:58 of Lip/Tongue/Throat Review of Systems Constitutional Constitutional: Reports system reviewed and no additional complaints, except as documented Cardiovascular Cardiovascular: Reports system reviewed and no additional complaints, except as documented Respiratory Respiratory: Reports system reviewed and no additional complaints, except as documented Gastrointestinal Gastrointestinal: Reports system reviewed and no additional complaints, except as documented Musculoskeletal Musculoskeletal: Reports system reviewed and no additional complaints, except as documented Integumentary/Breasts Skin/Breast: Reports system reviewed and no additional complaints, except as documented Patient History Medical History Brachial plexopathy Cervical facet syndrome Cervical radiculopathy at C7 Chronic radicular cervical pain Tendinopathy of left rotator cuff Surgical History Status post cervical spinal fusion Family History Other Medical history non-contributory Social History household members: spouse Smoking Status: Never smoker alcohol intake: current additional social history: Never smoker, no ETOH Smoking Status: Never smoker alcohol intake frequency: holidays/special occasions only Substance Use Type: does not use Exam Initial Vital Signs Initial Vital Signs: Vital Signs Temperature 98.4 F 05/02/22 09:49 Pulse Rate 74 05/02/22 09:49 Respiratory Rate 20 05/02/22 09:49 Blood Pressure 134/84 05/02/22 09:49 Pulse Oximetry 99 05/02/22 09:49 Oxygen Delivery Method Room Air 05/02/22 09:49 Const General: cooperative, comfortable and No ill appearing HENMT Head: normal to inspection and normocephalic Chest Chest: No crepitus and tenderness (Some tenderness to palpation left-sided chest but is not pinpoint) Resp Effort & Inspection: normal respiratory effort Auscultation: clear to auscultation bilaterally Cardio Rate: regular rate Back/Spine/Pelvis Other: No paraspinal thoracic rib tenderness Skin General: no rashes or lesions noted Neuro General: patient alert, patient awake and moves all extremities Extrem General: normal to inspection and capillary refill normal Course Orders Ordered: ED Orders 05/02/22 09:42 XR chest 1V Stat EKG-12 Lead Stat 05/02/22 09:50 Complete Blood Count AUTO DIFF Stat Comprehensive Metabolic Panel Stat Lipase Stat Troponin & CK Cardiac Panel Stat 05/02/22 10:38 CT chest wo con Stat Vital Signs Vital signs: Vital Signs - 8 hr 05/02/22 09:49 05/02/22 09:53 05/02/22 10:00 Temperature 98.4 F Pulse Rate 74 74 Respiratory Rate 20 17 Blood Pressure 134/84 141/87 H Pulse Oximetry 99 95 Oxygen Delivery Method Room Air 05/02/22 10:00 05/02/22 10:30 05/02/22 10:31 Temperature Pulse Rate 69 61 61 Respiratory Rate 15 23 15 Blood Pressure Pulse Oximetry 95 95 94 Oxygen Delivery Method Room Air 05/02/22 10:31 Temperature Pulse Rate Respiratory Rate Blood Pressure 149/72 H Pulse Oximetry Oxygen Delivery Method MDM - Chest Pain Medical Records Data Attestation: I reviewed the patient's medical records. Lab Data Attestation: I reviewed the patient's lab results. 05/02/22 09:50 05/02/22 09:50 Labs: Lab Results 05/02/22 05/02/22 Range/Units 09:50 09:50 WBC 10.4 (4.5-11.0) X10^3/uL RBC 5.34 (4.5-5.9) X10^6/uL Hgb 15.0 (13.5-17.5) g/dL Hct 44.2 (41-53) % MCV 82.8 (80-100) fL MCH 28.0 (26-34) PG MCHC 33.9 (30-36) % RDW 13.8 (11.6-14.8) % Plt Count 191 (150-400) X10^3/uL Neut % (Auto) 78.2 H (50-75) % Lymph % (Auto) 11.3 L (25-40) % Mchenry % (Auto) 7.3 (3-14) % Eos % (Auto) 2.6 (2-4) % Baso % (Auto) 0.6 (0-2) % Neut # (Auto) 8100 H (4228-9839) /uL Lymph # (Auto) 1200 (7196-9523) /uL Mchenry # (Auto) 800 (0-900) /uL Eos # (Auto) 300 (0-450) /uL Baso # (Auto) 100 (0-100) /uL Sodium 131 L (137-145) mmol/L Potassium 3.8 (3.4-5.1) mmol/L Chloride 97 L (98-107) mmol/L Carbon Dioxide 28 (22-32) mmol/L BUN 15 (9-20) mg/dL Creatinine 0.68 (0.66-1.25) mg/dL Estimated GFR > 60 (>60) mL/min BUN/Creatinine Ratio 22.1 H (6-22) Glucose 183 H (80-110) mg/dL Calcium 8.7 (8.4-10.2) mg/dL Total Bilirubin 1.0 (0.2-1.3) mg/dL AST 28 (17-59) IU/L ALT 27 (<50) IU/L Alkaline Phosphatase 77 (38-126) U/L Total Creatine Kinase 109 (55-170) U/L CK-MB (CK-2) 1.63 (<2.37) ng/mL CK-MB (CK-2) Rel Index 1.5 (1.5-5.0) % Troponin I < 0.012 (0.01-0.034) ng/mL Total Protein 6.4 (6.3-8.2) g/dL Albumin 4.0 (3.5-5.0) g/dL Globulin 2.4 (1.7-4.1) g/dL Albumin/Globulin Ratio 1.7 (1.0-2.8) Lipase 47 (23-300) U/L Imaging Data Chest x-ray: Radiologist's Impression: PROCEDURE:? XR CHEST 1V ? INDICATIONS:? chest pain ? TECHNIQUE:? One view of the chest was acquired.? ? COMPARISON:? [facility], , XR CHEST 1V, 01/14/2021, 16:32.? [facility], , XR CHEST 1V, 09/05/2019, 20:15. ? FINDINGS:? ? Surgical changes and devices:? Partially seen cervical fusion hardware. ? Lungs and pleura:? Right hemidiaphragm eventration.? No dense consolidation.? No pleural effusion. ? Mediastinum:? Mediastinal contours appear normal.? Heart size is normal.? ? Bones and chest wall:? No suspicious bony lesions.? Overlying soft tissues appear unremarkable.? ? IMPRESSION:? Right hemidiaphragm eventration.? No pulmonary consolidation or pleural effusion identified. CT scan - chest: Radiologist's Impression: PROCEDURE:? CT CHEST WO CON ? INDICATIONS:? L sided chest pain after fall 2 weeks ago with SOB ? TECHNIQUE: Noncontrast 5 mm thick sections acquired from the pulmonary apices to the posterior costophrenic angles.? 1 mm lung window, 5 mm thick coronal and sagittal and 7 mm axial MIP reformats were then acquired.? For radiation dose reduction, the following was used:? automated exposure control, adjustment of mA and/or kV according to patient size.? ? COMPARISON:? None. ? FINDINGS: Image quality:? Excellent.? ? Lungs and pleura: No acute air space opacities. No pleural effusions or pneumo thorax.? Central and peripheral airways are patent and normal in caliber.? ? Mediastinum:? Heart size is normal.? No pericardial effusion.? No mediastinal adenopathy by size criteria.? Thoracic aorta and central pulmonary arteries are normal in size.? Esophagus is normal in caliber.? No hiatal hernia. ? Bones and chest wall:? Left 3rd and 4th nondisplaced rib fractures.? No suspicious bony lesions. No vertebral body compression fractures.? No axillary or supraclavicular adenopathy by size criteria.? Thyroid gland is normal. ? Abdomen:? Limited visualization of the upper abdomen shows no acute abnormality.? ? IMPRESSION:? Nondisplaced left 3rd and 4th anterior rib fractures. ECG Data Interpretation: Sinus rhythm Ventricular rate is 79 Normal axis Normal QRS Normal QTC No ST T wave MDM Narrative Medical decision making narrative: Patient does have a confirmed left sided 3rd and 4th rib fractures which is consistent with where he is having discomfort. I suspect that he just aggravated these ribs when he turned over this morning. There was no underlying lung pathology. Will discharge patient home. Discussed the findings of the CT scan. He has follow-up with his primary doctor tomorrow. He was given return precautions. He expressed understanding and agreement. Discharge Plan Departure Patient Disposition: Home Clinical Impression: Rib fractures Instructions: DI for Rib Fracture Activity Restrictions/Additional Instructions: Recommend that you take all of your medications as directed and keep your appointment that you have scheduled tomorrow with your primary doctor. Return to the emergency department for any new symptoms. Prescriptions: New meclizine 25 mg tablet 25 mg PO BID PRN (Reason: dizziness) Qty: 14 0RF No Action ipratropium-albuterol 0.5 mg-3 mg(2.5 mg base)/3 mL Solution For Nebulization 3 ml INH [id number] PRN (Reason: Shortness Of Breath Or Wheezing) Qty: 60 2RF albuterol sulfate 2.5 mg /3 mL (0.083 %) Solution For Nebulization 2.5 mg INH RTQ4HR PRN (Reason: Shortness Of Breath Or Wheezing) Qty: 40 0RF doxycycline hyclate 100 mg Tablet 100 mg PO BID Qty: 20 0RF cholecalciferol (vitamin D3) 25 mcg (1,000 unit) Tablet 1,000 unit PO DAILY Qty: 60 2RF levofloxacin 500 mg tablet 500 mg PO 0700 Qty: 7 0RF sennosides [senna] 8.6 mg Tablet 17.2 mg PO BEDTIME Qty: 60 2RF sucralfate 1 gram Tablet 1 gm PO ACHS Qty: 120 2RF melatonin 3 mg Tablet 6 mg PO BEDTIME Qty: 60 2RF trazodone 100 mg Tablet 100 mg PO BEDTIME Qty: 60 2RF sodium chloride 1,000 mg Tablet,Soluble 1,000 mg PO BID Qty: 10 0RF zinc sulfate 50 mg zinc (220 mg) Capsule 220 mg PO DAILY Qty: 60 2RF Thera M Plus (ferrous fumarat) 9 mg iron-400 mcg Tablet 1 tab PO DAILY Qty: 30 2RF metoprolol succinate 50 mg capsule,sprinkle,ER 24hr 50 mg PO DAILY Qty: 60 2RF losartan 25 mg Tablet 25 mg PO DAILY Qty: 30 2RF famotidine 40 mg tablet 40 mg PO BID Qty: 60 2RF fluticasone propion-salmeterol [Advair Diskus] 500 MCG/50 MCG blister with device 2 puff INH BIDRT Qty: 1 0RF albuterol sulfate 90 mcg/actuation HFA aerosol inhaler 1 puff Inhalation PRN PRN (Reason: Shortness Of Breath) Qty: 1 0RF prednisone 10 mg tablet 10 mg PO DIRECTED Qty: 30 0RF Rx Instructions: 40MG PO DAILY X 3 DAYS 30MG PO DAILY X 3 DAYS 20MG PO DAILY X 4 DAYS 10MG PO DAILY X 4 DAYS 5MG PO DAILY X 4 DAYS hydrocodone-acetaminophen 5-325 mg tablet 1 tab PO Q8H PRN (Reason: pain) Qty: 10 0RF lidocaine 5 % adhesive patch,medicated 1 patch TOP DAILY PRN (Reason: pain) Qty: 15 0RF Rx Instructions: leave on most painful area for up to 12 hrs atorvastatin [Lipitor] 40 mg tablet 40 mg PO BEDTIME acetaminophen [Tylenol Extra Strength] 500 mg tablet 1,000 mg PO TID PRN (Reason: pain) meloxicam 7.5 mg tablet 7.5 mg PO BID Qty: 60 5RF gabapentin 300 mg capsule 300 mg PO .COMPLEX Qty: 90 2RF Rx Instructions: 1-2 PO Tid to begin at HS and titrate to pain relief Referrals: Alvina Beth MD [Primary Care Provider] - Stand Alone Forms: Patient Portal/API
[2022-05-02 10:08] LABS: Alanine Aminotransferase 27 IU/L (<50); Albumin Globulin Ratio 1.7 (1.0-2.8); Alkaline Phosphatase 77 U/L (38-126); Aspartate Aminotransferase 28 IU/L (17-59); BUN Creatinine Ratio 22.1 (6-22); Blood Urea Nitrogen 15 mg/dL (9-20); Calcium 8.7 mg/dL (8.4-10.2); Carbon Dioxide 28 mmol/L (22-32); Chloride 97 mmol/L (98-107); Creatine Kinase 109 U/L (55-170); Estimated Glomerular Filt Rate > 60 mL/min (>60); Globulin 2.4 g/dL (1.7-4.1); Glucose 183 mg/dL (80-110); HEMOLYSIS 37 (0-50); Lipase 47 U/L (23-300); Potassium 3.8 mmol/L (3.4-5.1); Sodium 131 mmol/L (137-145); Total Protein 6.4 g/dL (6.3-8.2)
[2022-05-02 10:20] LABS: Troponin I < 0.012 ng/mL (0.01-0.034)
[2022-05-02 10:23] LABS: CKMB % Relative Index 1.5 % (1.5-5.0); Creatine Kinase MB 1.63 ng/mL (<2.37)
--- NOTE | 2022-05-02 10:38 | DI.CT.S_ITS ---
PROCEDURE: CT CHEST WO CON INDICATIONS: L sided chest pain after fall 2 weeks ago with SOB TECHNIQUE: Noncontrast 5 mm thick sections acquired from the pulmonary apices to the posterior costophrenic angles. 1 mm lung window, 5 mm thick coronal and sagittal and 7 mm axial MIP reformats were then acquired. For radiation dose reduction, the following was used: automated exposure control, adjustment of mA and/or kV according to patient size. COMPARISON: None. FINDINGS: Image quality: Excellent. Lungs and pleura: No acute air space opacities. No pleural effusions or pneumothorax. Central and peripheral airways are patent and normal in caliber. Mediastinum: Heart size is normal. No pericardial effusion. No mediastinal adenopathy by size criteria. Thoracic aorta and central pulmonary arteries are normal in size. Esophagus is normal in caliber. No hiatal hernia. Bones and chest wall: Left 3rd and 4th nondisplaced rib fractures. No suspicious bony lesions. No vertebral body compression fractures. No axillary or supraclavicular adenopathy by size criteria. Thyroid gland is normal. Abdomen: Limited visualization of the upper abdomen shows no acute abnormality. IMPRESSION: Nondisplaced left 3rd and 4th anterior rib fractures. Dictated by: Roberto Lewis M.D. on 05/02/2022 at 11:42 Approved by: Roberto Lewis M.D. on 05/02/2022 at 11:44
== END 2022-05-02 13:35 | disposition home or self-care (01) ==
PROVIDERS: Emergency Provider Emergency Medicine; Family Provider Internal Medicine; PCP Internal Medicine
DX: S22.42XA Multiple fractures of ribs, left side, initial encounter for closed fracture (principal); R07.9 Chest pain, unspecified; W18.30XA Fall on same level, unspecified, initial encounter; Z79.899 Other long term (current) drug therapy
CPT/HCPCS: 36415; 71045; 71250; 80053; 82550; 82553; 83690; 84484; 85025; 93005; 93010; 99284

== ENCOUNTER 2023-03-02 09:11 | Day surgery (SDC) | payer MEDICARE, OTHER, SELFPAY ==
[2021-01-14 22:07] VITALS: BMI 33.7
[2023-03-02] VITALS (7 sets, daily range): BP systolic 100–141; BP diastolic 65–87; PULSE 61–78; RESP 12–20; TEMP 36.5–36.7; O2SAT 93–97; BMI 33.7
--- NOTE | 2023-03-02 | PATH_ITS ---
[facility] Accession Number: [id number] No. of containers..01 Tissue . 01 Material submitted: . colon - TRANSVERSE POLYP . 01 Diagnosis: Transverse Colon, Polyp: Tubular adenoma. [facility] 03/07/2023 1051 Local . 01 Electronically signed: . Olga Stevens MD, Pathologist NPI- [id number] . 01 Gross description: . TRANSVERSE POLYP: Received in formalin is 1 fragment(s) of kemp, soft tissue measuring 0.4 x 0.3 x 0.2 cm submitted entirely in 1 cassette(s) /AAY 03/03/2023 0534 Local . 01 Pathologist provided ICD-10: D12.3 . 01 CPT . 737858 Specimen Comment: A courtesy copy of this report has been sent to [phone] Performed at: 01 [facility] [address] [place] [address], [place], [place] [id number] MD Abdi Alvarez MD Phone: [phone]
[2023-03-02] MEDS: LACTATED RINGERS 1,000 ML 84 ML IV (10:00)
--- NOTE | 2023-03-02 10:05 | P.HP_ITS ---
History of Present Illness History of Present Illness Date Patient Seen: 03/02/23 Chief complaint: Colonoscopy Narrative: Personal history of colon polyps last colonoscopy 12 years ago [facility] Medical History Brachial plexopathy Cervical facet syndrome Cervical radiculopathy at C7 Chronic radicular cervical pain Tendinopathy of left rotator cuff Surgical History Status post cervical spinal fusion Family History Other Medical history non-contributory Social History household members: spouse Smoking Status: Never smoker alcohol intake: never additional social history: Never smoker, no ETOH Meds Home Medications and Allergies Home Medications Medication Instructions Recorded Confirmed Type atorvastatin 40 mg tablet (Lipitor) 40 mg PO BEDTIME 01/27/18 03/02/23 History acetaminophen 500 mg tablet 1,000 mg PO TID PRN pain 12/25/18 03/02/23 History (Tylenol Extra Strength) lidocaine 5 % topical patch 1 patch topical DAILY PRN pain #15 05/03/19 03/02/23 Rx ea gabapentin 300 mg capsule 300 mg PO .COMPLEX #90 caps 01/07/20 03/02/23 Rx meloxicam 7.5 mg tablet 7.5 mg PO BID inflammatory pain 01/07/20 03/02/23 Rx #60 tabs albuterol sulfate 2.5 mg/3 mL 2.5 mg (3 mL) INH RTQ4HR PRN 01/17/21 03/02/23 Rx (0.083 %) solution for nebulization Shortness Of Breath Or Wheezing #40 mL albuterol sulfate 90 mcg/actuation 1 puff inhalation PRN PRN 01/17/21 03/02/23 Rx aerosol inhaler Shortness Of Breath #1 g cholecalciferol (vitamin D3) 25 1,000 unit PO DAILY #60 tabs 01/17/21 03/02/23 Rx mcg (1,000 unit) tablet fluticasone 500 mcg-salmeterol 50 2 puff INH BIDRT #1 ea 01/17/21 03/02/23 Rx mcg/dose blistr powdr for inhalation (Advair Diskus) ipratropium 0.5 mg-albuterol 3 mg 3 ml INH [id number] PRN Shortness Of 01/17/21 03/02/23 Rx (2.5 mg base)/3 mL nebulization Breath Or Wheezing #60 mL soln losartan 25 mg tablet 25 mg PO DAILY #30 tabs 01/17/21 03/02/23 Rx melatonin 3 mg tablet 6 mg (2 x 3 mg) PO BEDTIME #60 tabs 01/17/21 03/02/23 Rx metoprolol succinate 50 mg capsule 50 mg PO DAILY #60 ea 01/17/21 03/02/23 Rx sprinkle, ext. release 24 hr multivitamin-iron 9 mg-folic acid 1 tab PO DAILY #30 tabs 01/17/21 03/02/23 Rx 400 mcg-calcium and minerals tablet (Thera M Plus (ferrous fumarate)) trazodone 100 mg tablet 100 mg PO BEDTIME #60 tabs 01/17/21 03/02/23 Rx zinc sulfate 50 mg zinc (220 mg) 220 mg (4.4 x 50 mg zinc (220 mg)) 01/17/21 03/02/23 Rx capsule PO DAILY #60 caps cetirizine 10 mg tablet 10 mg PO DAILY 03/02/23 03/02/23 History hydrochlorothiazide 25 mg tablet 25 mg PO DAILY 03/02/23 03/02/23 History olopatadine 0.1 % eye drops 2 drp EYE-BOTH DAILY PRN Eye 03/02/23 03/02/23 History Irritation omeprazole 20 mg capsule,delayed 20 mg PO BID 03/02/23 03/02/23 History release sildenafil 50 mg tablet 50 mg PO DAILY 03/02/23 03/02/23 History tamsulosin 0.4 mg capsule 0.8 mg PO DAILY 03/02/23 03/02/23 History telmisartan 80 mg tablet 80 mg PO DAILY 03/02/23 03/02/23 History Allergies Allergy/AdvReac Type Severity Reaction Status Date / Time sulfamethoxazole Allergy Severe rash and Verified 03/02/23 09:40 [From ] swelling trimethoprim [From ] Allergy Severe rash and Verified 03/02/23 09:40 swelling Penicillins [PENICILLINS] Allergy Unknown rash and Verified 03/02/23 09:40 swelling shellfish derived AdvReac Mild Swelling Verified 03/02/23 09:40 of Lip/Tongue/Throat Exam Vital Signs (past 8 hours): - 03/02/23 09:31 Temperature 98.0 F Pulse Rate 78 Respiratory Rate 20 Blood Pressure 141/87 H Pulse Oximetry 93 Oxygen Delivery Method Room Air Oxygen Delivery Method Room Air Narrative Exam Narrative: Oropharynx free of lesions Chest clear to auscultation percussion Cardiac exam reveals no S3 or murmur Assessment & Plan Assessment & Plan narrative: Personal history of colon polyps last colonoscopy over a decade ago risks, benefits, alternatives have been explained.
--- NOTE | 2023-03-02 10:06 | P.OP.COLON_ITS ---
Operative Date/Time/Diagnoses Date of procedure: 03/02/23 Pre-op diagnosis: See indication and findings Procedure & Clinicians Study performed: Colonoscopy Indications: Personal history of colon polyps Surgeon: Trent Orellana Procedure Notes Procedure in detail: After informed consent was obtained the patient was placed in left lateral decubitus position. The video colonoscope was introduced the rectum slowly advanced cecum. Preparation was good. On slow withdrawal mucosa was carefully examined. The scope was removed. The patient tolerated the procedure well. Blood loss none Complications none Sedation mac Findings 1. 5 mm colon polyp in the transverse colon Jumbo biopsied and removed completel y 2. Occasional scattered diverticulosis 3. Otherwise negative colonoscopy to cecum I suggest we have Mr. Agee have follow-up colonoscopy in 7 years.
== END 2023-03-02 11:35 | disposition home or self-care (01) ==
PROVIDERS: Family Provider Internal Medicine; PCP Nurse Practitioner Family; Referring Provider Internal Medicine Gastroenterology; Visit Provider Internal Medicine Gastroenterology
PROC: 0DJD8ZZ Inspection of Lower Intestinal Tract, Via Natural or Artificial Opening Endoscopic (ICD-10-PCS; CPT 45378; principal; 2023-03-02 09:30)
DX: Z12.11 Encounter for screening for malignant neoplasm of colon (principal); Z86.010 Personal history of colon polyps; K57.30 Diverticulosis of large intestine without perforation or abscess without bleeding; D12.3 Benign neoplasm of transverse colon
CPT/HCPCS: 45380; J2704

== ENCOUNTER 2023-06-02 13:26 | Emergency (ER) | payer MEDICARE, OTHER, SELFPAY ==
[2021-01-14 22:07] VITALS: BMI 33.7
[2023-06-02 13:33] VITALS: BP 151/84; PULSE 72; RESP 16; TEMP 36.3; O2SAT 96; BMI 33.7
--- NOTE | 2023-06-02 13:37 | DI.CT.S_ITS ---
PROCEDURE: CT KIDNEY URETER BLADDER (KUB) INDICATIONS: r/o L sided kidney stone TECHNIQUE: Axial sections were acquired from the lung bases to the pubic symphysis. Coronal and sagittal reformats were performed. For radiation dose reduction, the following was used: automated exposure control, adjustment of mA and/or kV according to patient size. COMPARISON: None. FINDINGS: Image quality: Diagnostic. Lower Chest: No significant findings. URINARY: Right Kidney: No stones or hydronephrosis. Right Ureter: No hydroureter. Extensive artifact from bilateral hip arthroplasties precludes ruling out a nonobstructing distal ureteral stone. Left Kidney: No stones or hydronephrosis. Left Ureter: No hydroureter. Extensive artifact from bilateral hip arthroplasties precludes ruling out a nonobstructing distal ureteral stone. Bladder: Normal wall thickness. No stones. Posterior aspect obscured by extensive metallic artifact from hip arthroplasties. ABDOMEN: Liver: No contour-deforming solid mass. Gallbladder: No radiopaque gallstones or wall thickening. Biliary ducts: No biliary dilation. Pancreas: No ductal dilation. Spleen: Size is within normal limits. Adrenal Glands: No adrenal nodules. Stomach and Bowel: Normal colonic caliber, without significant wall thickening. Scattered diverticulosis without evidence of diverticulitis. Peritoneum: No abnormal intraperitoneal fluid. No free air. Ventral Wall: No hernia. Abdominal Nodes: No enlarged retroperitoneal or mesenteric lymph nodes. Vessels: Aorta and inferior vena cava are normal in size. PELVIS: Pelvic Organs: Unremarkable. Pelvic Nodes: Unremarkable. Miscellaneous: No inguinal hernias are seen. Bones: Unremarkable. Bilateral total hip arthroplasties result in extensive metal artifact in the lower pelvis. IMPRESSION: 1. There are no renal stones, there is no hydronephrosis, and there is no hydroureter. 2. There is extensive artifact from bilateral total hip arthroplasties in the pelvis. Small distal ureteral stones are not excluded. However, the ureters are of normal caliber, so this is unlikely. 3. No acute abdominal process identified. Dictated by: Dex Singh M.D. on 06/02/2023 at 15:28 Approved by: Dex Singh M.D. on 06/02/2023 at 15:32
[2023-06-02 14:22] VITALS: BP 140/77; PULSE 68; RESP 16; TEMP 36.4; O2SAT 95
--- NOTE | 2023-06-02 14:31 | ED_ITS ---
HPI - Back Pain/Injury <Livier De La Paz PA-C - Last Filed: 06/02/23 19:08> General Chief Complaint: Back Pain/Injury Stated Complaint: per pt L side pain Time Seen by Provider: 06/02/23 14:28 History of Present Illness HPI Narrative: 72-year-old male with a history of hypertension, asthma, status post cervical spinal fusion presents with concern for left flank pain for 3 days. Patient states it came on without any specific injury and has been worsening over the last 3 days. He states it is worse with movements and he feels it radiates around his flank and into his abdomen towards his groin. He has not noted any urinary symptoms, fevers, chills. He does state he has had a persistent cough for a few weeks which he attributes to allergies. Cough has been nonproductive. He states his energy level has been okay and he has not had reduced appetite nausea vomiting or diarrhea or constipation. Related Data Home Medications Medication Instructions Recorded Confirmed atorvastatin 40 mg tablet (Lipitor) 40 mg PO BEDTIME 01/27/18 03/02/23 acetaminophen 500 mg tablet 1,000 mg PO TID PRN pain 12/25/18 03/02/23 (Tylenol Extra Strength) cetirizine 10 mg tablet 10 mg PO DAILY 03/02/23 03/02/23 hydrochlorothiazide 25 mg tablet 25 mg PO DAILY 03/02/23 03/02/23 olopatadine 0.1 % eye drops 2 drp EYE-BOTH DAILY PRN Eye 03/02/23 03/02/23 Irritation omeprazole 20 mg capsule,delayed 20 mg PO BID 03/02/23 03/02/23 release sildenafil 50 mg tablet 50 mg PO DAILY 03/02/23 03/02/23 tamsulosin 0.4 mg capsule 0.8 mg PO DAILY 03/02/23 03/02/23 telmisartan 80 mg tablet 80 mg PO DAILY 03/02/23 03/02/23 Previous Rx's Medication Instructions Recorded lidocaine 5 % topical patch 1 patch topical DAILY PRN pain #15 05/03/19 ea gabapentin 300 mg capsule 300 mg PO .COMPLEX #90 caps 01/07/20 meloxicam 7.5 mg tablet 7.5 mg PO BID inflammatory pain 01/07/20 #60 tabs albuterol sulfate 2.5 mg/3 mL 2.5 mg (3 mL) INH [id number] PRN 01/17/21 (0.083 %) solution for nebulization Shortness Of Breath Or Wheezing #40 mL albuterol sulfate 90 mcg/actuation 1 puff inhalation PRN PRN 01/17/21 aerosol inhaler Shortness Of Breath #1 g cholecalciferol (vitamin D3) 25 1,000 unit PO DAILY #60 tabs 01/17/21 mcg (1,000 unit) tablet fluticasone 500 mcg-salmeterol 50 2 puff INH BIDRT #1 ea 01/17/21 mcg/dose blistr powdr for inhalation (Advair Diskus) ipratropium 0.5 mg-albuterol 3 mg 3 ml INH [id number] PRN Shortness Of 01/17/21 (2.5 mg base)/3 mL nebulization Breath Or Wheezing #60 mL soln losartan 25 mg tablet 25 mg PO DAILY #30 tabs 01/17/21 melatonin 3 mg tablet 6 mg (2 x 3 mg) PO BEDTIME #60 tabs 01/17/21 metoprolol succinate 50 mg capsule 50 mg PO DAILY #60 ea 01/17/21 sprinkle, ext. release 24 hr multivitamin-iron 9 mg-folic acid 1 tab PO DAILY #30 tabs 01/17/21 400 mcg-calcium and minerals tablet (Thera M Plus (ferrous fumarate)) trazodone 100 mg tablet 100 mg PO BEDTIME #60 tabs 01/17/21 zinc sulfate 50 mg zinc (220 mg) 220 mg (4.4 x 50 mg zinc (220 mg)) 01/17/21 capsule PO DAILY #60 caps baclofen 10 mg tablet 10 mg PO TID 10 days #30 tabs 06/02/23 lidocaine 5 % topical patch 1 patch topical DAILY #15 ea 06/02/23 Allergies Allergy/AdvReac Type Severity Reaction Status Date / Time sulfamethoxazole Allergy Severe rash and Verified 03/02/23 09:40 [From ] swelling trimethoprim [From ] Allergy Severe rash and Verified 03/02/23 09:40 swelling Penicillins [PENICILLINS] Allergy Unknown rash and Verified 03/02/23 09:40 swelling shellfish derived AdvReac Mild Swelling Verified 03/02/23 09:40 of Lip/Tongue/Throat Review of Systems <Livier De La Paz PA-C - Last Filed: 06/02/23 19:08> Review of Systems Narrative: See HPI Patient History <Livier De La Paz PA-C - Last Filed: 06/02/23 19:08> Medical History Cervical facet syndrome Cervical radiculopathy at C7 Chronic radicular cervical pain Brachial plexopathy Tendinopathy of left rotator cuff Surgical History Status post cervical spinal fusion Family History Other Medical history non-contributory Social History household members: spouse Smoking Status: Never smoker alcohol intake: never additional social history: Never smoker, no ETOH Smoking Status: Never smoker alcohol intake frequency: holidays/special occasions only Substance Use Type: does not use Exam <Livier De La Paz PA-C - Last Filed: 06/02/23 19:08> Narrative Exam Narrative: GENERAL: [72] year old patient appears stated age. Well-developed patient, in mild distress. HEAD: Atraumatic. Normocephalic. EYES: Pupils equal round and reactive. Extraocular motions intact. No scleral icterus. No injection or drainage. ENT: Nose without bleeding, purulent drainage. Throat without erythema, tonsillar hypertrophy or exudate. Airway patent. NECK: Trachea midline. Non tender CARDIOVASCULAR: Regular rate and rhythm without murmurs, gallops, or rubs. RESPIRATORY: Moving good air all hernandez, no wheezing there are rhonchi noted in the left lower lung hernandez posteriorly, otherwise No wheezes, rales, or rhonchi. GASTROINTESTINAL: Abdomen protruberant, soft, there is very mild left-sided upper abdominal discomfort, otherwise non-tender, nondistended, left flank is slightly tender.. EXTREMITIES: No edema or joint tenderness. BACK: There is tenderness/tightness over the left paraspinal muscles of the upper lumbar region. Nontender without deformity or crepitance. No CVA tenderness. NEURO: AOx3. SKIN: No rash or erythema of visible areas Initial Vital Signs Initial Vital Signs: Vital Signs Temperature 97.3 F L 06/02/23 13:33 Pulse Rate 72 06/02/23 13:33 Respiratory Rate 16 06/02/23 13:33 Blood Pressure 151/84 H 06/02/23 13:33 Pulse Oximetry 96 06/02/23 13:33 Oxygen Delivery Method Room Air 06/02/23 13:33 <Della Mark DO - Last Filed: 06/04/23 07:46> Initial Vital Signs Initial Vital Signs: Vital Signs Temperature 97.3 F L 06/02/23 13:33 Pulse Rate 72 06/02/23 13:33 Respiratory Rate 16 06/02/23 13:33 Blood Pressure 151/84 H 06/02/23 13:33 Pulse Oximetry 96 06/02/23 13:33 Oxygen Delivery Method Room Air 06/02/23 13:33 Course <Livier De La Paz PA-C - Last Filed: 06/02/23 19:08> Orders Ordered: Discontinued Medications Acetaminophen (Acetaminophen 325 Mg Tablet) 975 mg PO NOW ONE Stop: 06/02/23 16:52 Last Admin: 06/02/23 16:55 Dose: 975 mg Documented By: CHANCE Baclofen (Baclofen 10 Mg Tablet) 10 mg PO NOW ONE Stop: 06/02/23 16:52 Last Admin: 06/02/23 16:55 Dose: 10 mg Documented By: CHANCE Ketorolac Tromethamine (Ketorolac 30 Mg/Ml Vial) 15 mg IV NOW ONE Stop: 06/02/23 16:53 Last Admin: 06/02/23 16:55 Dose: 15 mg Documented By: CHANCE Vital Signs Vital signs: Vital Signs - 8 hr 06/02/23 13:33 06/02/23 14:22 06/02/23 16:37 Temperature 97.3 F L 97.5 F L Pulse Rate 72 68 57 L Respiratory Rate 16 16 16 Blood Pressure 151/84 H 140/77 163/82 H Pulse Oximetry 96 95 97 Oxygen Delivery Method Room Air Room Air Room Air 06/02/23 18:48 Temperature Pulse Rate 57 L Respiratory Rate Blood Pressure Pulse Oximetry 96 Oxygen Delivery Method Room Air <Della Mark DO - Last Filed: 06/04/23 07:46> Orders Ordered: Discontinued Medications Acetaminophen (Acetaminophen 325 Mg Tablet) 975 mg PO NOW ONE Stop: 06/02/23 16:52 Last Admin: 06/02/23 16:55 Dose: 975 mg Documented By: CHANCE Baclofen (Baclofen 10 Mg Tablet) 10 mg PO NOW ONE Stop: 06/02/23 16:52 Last Admin: 06/02/23 16:55 Dose: 10 mg Documented By: CHANCE Ketorolac Tromethamine (Ketorolac 30 Mg/Ml Vial) 15 mg IV NOW ONE Stop: 06/02/23 16:53 Last Admin: 06/02/23 16:55 Dose: 15 mg Documented By: CHANCE Vital Signs Vital signs: Vital Signs - 8 hr 06/02/23 13:33 06/02/23 14:22 06/02/23 16:37 Temperature 97.3 F L 97.5 F L Pulse Rate 72 68 57 L Respiratory Rate 16 16 16 Blood Pressure 151/84 H 140/77 163/82 H Pulse Oximetry 96 95 97 Oxygen Delivery Method Room Air Room Air Room Air 06/02/23 18:48 Temperature Pulse Rate 57 L Respiratory Rate Blood Pressure Pulse Oximetry 96 Oxygen Delivery Method Room Air MDM - Back Pain/Injury <Livier De La Paz PA-C - Last Filed: 06/02/23 19:08> Differential Diagnosis Differential diagnosis: Likely lumbar radiculopathy, strain of lumbar region, renal colic, pyelonephritis and thoracic back pain Medical Records Attestation: I reviewed the patient's medical records. Lab Data Attestation: I reviewed the patient's lab results. 06/02/23 15:09 06/02/23 15:09 Labs: Lab Results 06/02/23 06/02/23 Range/Units 13:40 15:09 WBC 7.8 (4.5-11.0) X10^3/uL RBC 5.06 (4.5-5.9) X10^6/uL Hgb 14.5 (13.5-17.5) g/dL Hct 42.7 (41-53) % MCV 84.4 (80-100) fL MCH 28.7 (26-34) PG MCHC 34.0 (30-36) % RDW 13.6 (11.6-14.8) % Plt Count 188 (150-400) X10^3/uL Neut % (Auto) 71.8 (50-75) % Lymph % (Auto) 13.7 L (25-40) % Rice % (Auto) 11.7 (3-14) % Eos % (Auto) 1.8 L (2-4) % Baso % (Auto) 1.0 (0-2) % Neut # (Auto) 5600 (0585-9364) /uL Lymph # (Auto) 1100 (9969-8983) /uL Rice # (Auto) 900 (0-900) /uL Eos # (Auto) 100 (0-450) /uL Baso # (Auto) 100 (0-100) /uL Sodium 134 L (137-145) mmol/L Potassium 3.9 (3.4-5.1) mmol/L Chloride 101 (98-107) mmol/L Carbon Dioxide 32 (22-32) mmol/L BUN 9 (9-20) mg/dL Creatinine 0.63 L (0.66-1.25) mg/dL Estimated GFR > 60 (>60) mL/min BUN/Creatinine Ratio 14.3 (6-22) Glucose 115 H (80-110) mg/dL Calcium 9.2 (8.4-10.2) mg/dL Total Bilirubin 0.6 (0.2-1.3) mg/dL AST 29 (17-59) IU/L ALT 28 (<50) IU/L Alkaline Phosphatase 72 (38-126) U/L C-Reactive Protein 1.0 (<1.0) mg/dL Total Protein 6.2 L (6.3-8.2) g/dL Albumin 3.9 (3.5-5.0) g/dL Globulin 2.3 (1.7-4.1) g/dL Albumin/Globulin Ratio 1.7 (1.0-2.8) Lipase 52 (23-300) U/L Procalcitonin 0.04 (<0.5) ng/mL Urine Color Yellow Urine Appearance Clear Urine pH 5.5 (4.5-8.0) Ur Specific Zwingle 1.010 (1.000-1.035) Urine Protein Negative (Negative) Urine Glucose (UA) Negative (Negative) g/dL Urine Ketones Negative (NEGATIVE) Urine Occult Blood Negative (Negative) Urine Nitrate Negative (Negative) Urine Bilirubin Negative (NEGATIVE) Urine Urobilinogen 0.2 (0.2) E.U./dL Ur Leukocyte Esterase Negative (NEGATIVE) Urine RBC None seen (0-5/HPF) Urine WBC 0-1/hpf (0-5/HPF) Ur Squamous Epith Cells None seen (0-5/HPF) Urine Bacteria Occasional (0-1) (None) Ur Culture Indicated? Cult not indicated Vol Urine Centrifuged 10ml (spun) Imaging Data Chest x-ray: My Impression: Agree with Radiology interpretation Radiologist's Impression: [address] [id number] XRay Report Signed Patient: Nadia Agee MR#: [id number] : 1950 Acct:[id number] Age/Sex: 72 / M Date of Service: 06/02/23 Loc: ED Accession Number: [id number] Procedure: XR chest 2V Ordering Provider: Livier De La Paz P.A-C PROCEDURE: XR CHEST 2V INDICATIONS: Left lower lobe suspect PNA/cough 2 wks TECHNIQUE: 2 views of the chest were acquired. COMPARISON: [facility], CR, XR CHEST 1V, 05/02/2022, 9:57. [facility], CR, XR CHEST 1V, 01/14/2021, 16:32. FINDINGS: Surgical changes and devices: ACDF Lungs and pleura: Low lung volumes. Prominent interstitial markings. Right hemidiaphragm eventration. No pleural effusions or pneumothorax. Mediastinum: Mediastinal contours are normal. Heart size is normal. Bones and chest wall: No suspicious bony abnormalities. Soft tissues appear unremarkable. IMPRESSION: Prominent interstitial markings, may be secondary to low lung volumes or interstitial edema and clinical correlation is recommended. No focal pulmonary consolidations. Dictated by: Juan Mckenna M.D. on 06/02/2023 at 15:50 Approved by: Juan Mckenna M.D. on 06/02/2023 at 15:51 CT scan - abdomen/pelvis: My Impression: Agree with Radiology interpretation Radiologist's Impression: [address] [address] [address] Scan Report Signed Patient: Nadia Agee MR#: [id number] : 1950 Acct:[id number] Age/Sex: 72 / M Date of Service: 06/02/23 Loc: ED Accession Number: [id number] Procedure: CT kidney ureter bladder (KUB) Ordering Provider: Della Mark D.O. PROCEDURE: CT KIDNEY URETER BLADDER (KUB) INDICATIONS: r/o L sided kidney stone TECHNIQUE: Axial sections were acquired from the lung bases to the pubic symphysis. Coronal and sagittal reformats were performed. For radiation dose reduction, the following was used: automated exposure control, adjustment of mA and/or kV according to patient size. COMPARISON: None. FINDINGS: Image quality: Diagnostic. Lower Chest: No significant findings. URINARY: Right Kidney: No stones or hydronephrosis. Right Ureter: No hydroureter. Extensive artifact from bilateral hip arthroplasties precludes ruling out a nonobstructing distal ureteral stone. Left Kidney: No stones or hydronephrosis. Left Ureter: No hydroureter. Extensive artifact from bilateral hip arthroplasties precludes ruling out a nonobstructing distal ureteral stone. Bladder: Normal wall thickness. No stones. Posterior aspect obscured by extensive metallic artifact from hip arthroplasties. ABDOMEN: Liver: No contour-deforming solid mass. Gallbladder: No radiopaque gallstones or wall thickening. Biliary ducts: No biliary dilation. Pancreas: No ductal dilation. Spleen: Size is within normal limits. Adrenal Glands: No adrenal nodules. Stomach and Bowel: Normal colonic caliber, without significant wall thickening. Scattered diverticulosis without evidence of diverticulitis. Peritoneum: No abnormal intraperitoneal fluid. No free air. Ventral Wall: No hernia. Abdominal Nodes: No enlarged retroperitoneal or mesenteric lymph nodes. Vessels: Aorta and inferior vena cava are normal in size. PELVIS: Pelvic Organs: Unremarkable. Pelvic Nodes: Unremarkable. Miscellaneous: No inguinal hernias are seen. Bones: Unremarkable. Bilateral total hip arthroplasties result in extensive metal artifact in the lower pelvis. IMPRESSION: 1. There are no renal stones, there is no hydronephrosis, and there is no hydroureter. 2. There is extensive artifact from bilateral total hip arthroplasties in the pelvis. Small distal ureteral stones are not excluded. However, the ureters are of normal caliber, so this is unlikely. 3. No acute abdominal process identified. Dictated by: Dex Singh M.D. on 06/02/2023 at 15:28 Approved by: Dex Singh M.D. on 06/02/2023 at 15:32 MDM Narrative Medical decision making narrative: 72-year-old male with history of hypertension, radicular cervical pain status post cervical spine fusion and asthma presents with concern for left-sided back pain present for 3 days that has been fairly persistent that radiates around into his left side. Initial concern for ureteral stone and CT KUB is ordered from triage, this returns negative although radiologist notes there is artifact from hip hardware and can not rule out small stones but that this is unlikely due to normal ureteral caliber. Patient's urine is unremarkable and not suggestive of infection or stone. He did have rhonchi in the left posterior lower lobe and an x-ray is obtained as he has had a cough for 2 weeks. This does not suggest an ammonia. His vitals and history also do not suggest a pneumonia. Some concern given pain that is left-sided and low in the abdomen for diverticulitis flare and in addition to CBC CMP, procalcitonin was ordered with concern for pneumonia and CRP was ordered as inflammatory marker assessment due to concern for diverticulitis. Radiology did note presence of diverticulosis on CT but no evidence of inflammation/diverticulitis actively. These both returned in the normal range. Counseled the patient and monitor carefully for changes in symptoms related to breathing or generalized symptoms, monitor urinary symptoms as well. Patient was hypertensive at discharge although he was completely asymptomatic from this and was counseled to follow up closely with his primary care states they have already made a plan for him to see a conveyor weigher operator although he sounds unsure why. He has been taking his regular antihypertensive medications. Patient was prescribed a muscle relaxer and lidocaine patches for his back pain/muscle spasm/strain. Return precautions provided, follow-up plan discussed, all questions answered. <Della Mark, DO - Last Filed: 06/04/23 07:46> Lab Data Labs: Lab Results 06/02/23 06/02/23 Range/Units 13:40 15:09 WBC 7.8 (4.5-11.0) X10^3/uL RBC 5.06 (4.5-5.9) X10^6/uL Hgb 14.5 (13.5-17.5) g/dL Hct 42.7 (41-53) % MCV 84.4 (80-100) fL MCH 28.7 (26-34) PG MCHC 34.0 (30-36) % RDW 13.6 (11.6-14.8) % Plt Count 188 (150-400) X10^3/uL Neut % (Auto) 71.8 (50-75) % Lymph % (Auto) 13.7 L (25-40) % Rice % (Auto) 11.7 (3-14) % Eos % (Auto) 1.8 L (2-4) % Baso % (Auto) 1.0 (0-2) % Neut # (Auto) 5600 (6989-8564) /uL Lymph # (Auto) 1100 (5329-9175) /uL Rice # (Auto) 900 (0-900) /uL Eos # (Auto) 100 (0-450) /uL Baso # (Auto) 100 (0-100) /uL Sodium 134 L (137-145) mmol/L Potassium 3.9 (3.4-5.1) mmol/L Chloride 101 (98-107) mmol/L Carbon Dioxide 32 (22-32) mmol/L BUN 9 (9-20) mg/dL Creatinine 0.63 L (0.66-1.25) mg/dL Estimated GFR > 60 (>60) mL/min BUN/Creatinine Ratio 14.3 (6-22) Glucose 115 H (80-110) mg/dL Calcium 9.2 (8.4-10.2) mg/dL Total Bilirubin 0.6 (0.2-1.3) mg/dL AST 29 (17-59) IU/L ALT 28 (<50) IU/L Alkaline Phosphatase 72 (38-126) U/L C-Reactive Protein 1.0 (<1.0) mg/dL Total Protein 6.2 L (6.3-8.2) g/dL Albumin 3.9 (3.5-5.0) g/dL Globulin 2.3 (1.7-4.1) g/dL Albumin/Globulin Ratio 1.7 (1.0-2.8) Lipase 52 (23-300) U/L Procalcitonin 0.04 (<0.5) ng/mL Urine Color Yellow Urine Appearance Clear Urine pH 5.5 (4.5-8.0) Ur Specific Zwingle 1.010 (1.000-1.035) Urine Protein Negative (Negative) Urine Glucose (UA) Negative (Negative) g/dL Urine Ketones Negative (NEGATIVE) Urine Occult Blood Negative (Negative) Urine Nitrate Negative (Negative) Urine Bilirubin Negative (NEGATIVE) Urine Urobilinogen 0.2 (0.2) E.U./dL Ur Leukocyte Esterase Negative (NEGATIVE) Urine RBC None seen (0-5/HPF) Urine WBC 0-1/hpf (0-5/HPF) Ur Squamous Epith Cells None seen (0-5/HPF) Urine Bacteria Occasional (0-1) (None) Ur Culture Indicated? Cult not indicated Vol Urine Centrifuged 10ml (spun) Discharge Plan Departure Patient Disposition: Home Clinical Impression: Muscle spasm of back Low back pain Qualifiers: Chronicity: acute Back pain laterality: left Sciatica presence: without sciatica Qualified Code(s): M54.50 - Low back pain, unspecified Activity Restrictions/Additional Instructions: *You have been diagnosed with [muscle spasm/back pain] *What to do: *Please continue to take your regular medications as directed. [ 2] New medication prescriptions sent to your pharmacy: [Baclofen (muscle relaxer) and lidocaine patches] [ ] New medication written as a paper prescription [ ] No new medications given *Please follow up with your primary care provider in 2-3 days, call for an appointment. Let them know you were seen in the Emergency Department and that we ask that you be seen in follow up. We will electronically transmit a record of today's note if your PCP is in our system. We did labs today to evaluate for inflammation, basic labs to look at electrolytes kidney and liver function as well as blood counts we also did imaging with a chest x-ray and a CT scan was done mostly to evaluate for ureter/kidney stones but this also looked at all of your abdominal organs--everything came back looking okay, they did see that you have some diverticulosis present but there is no inflammation/diverticulitis. We also checked an inflammatory marker lab that I would expect to be elevated if inflammation of your intestine was going on. Based on your exam in the fact that your pain is worse with movements I do think that this is likely a muscle strain/muscle spasm. We treated you today with muscle relaxer and Toradol as well as Tylenol which seemed to improve her pain. I am prescribing you a muscle relaxer as well as lidocaine patches to help with pain that you can put on the area of pain, and take the muscle relaxer as needed up to 3 times a day. Be cautious about driving or operating equipment after taking the muscle relaxer. Your chest x-ray did not show full lung inflation possibly you were not taking a full deep breath when the x-ray image was taken, so it is difficult to be 100% sure but there is no clear evidence of pneumonia we also checked another lab that is usually elevated and presence of a bacterial pneumonia and this was not elevated. I am not going to prescribe antibiotics for you at this time, although it is important for you to monitor your symptoms carefully and if you feel like your asthma or breathing is worsening or your cough is worsening please make sure you get rechecked. If your symptoms are not improving with these medications or in the next few days I recommend you get rechecked by your primary care provider. You can consider seeing orthopedics for further evaluation if needed as well. I hope you feel better soon. *If you do not have a primary care provider please contact the [facility] Resource line at [phone]. They will ask some questions about your medical history and help get you set up with a doctor in the community. *Return to Emergency Department if you should have any new, worsening or concerning symptoms, such as [fever greater than 101 F, shaking chills, worsening pain, persistent vomiting or other bothersome symptoms] Prescriptions: New baclofen 10 mg tablet 10 mg PO TID 10 Days Qty: 30 0RF lidocaine 5 % adhesive patch,medicated 1 patch topical DAILY Qty: 15 0RF Rx Instructions: leave on most painful area for up to 12 hrs No Action ipratropium-albuterol 0.5 mg-3 mg(2.5 mg base)/3 mL Solution For Nebulization 3 ml INH [id number] PRN (Reason: Shortness Of Breath Or Wheezing) Qty: 60 2RF albuterol sulfate 2.5 mg /3 mL (0.083 %) Solution For Nebulization 2.5 mg INH RTQ4HR PRN (Reason: Shortness Of Breath Or Wheezing) Qty: 40 0RF cholecalciferol (vitamin D3) 25 mcg (1,000 unit) Tablet 1,000 unit PO DAILY Qty: 60 2RF melatonin 3 mg Tablet 6 mg PO BEDTIME Qty: 60 2RF trazodone 100 mg Tablet 100 mg PO BEDTIME Qty: 60 2RF zinc sulfate 50 mg zinc (220 mg) Capsule 220 mg PO DAILY Qty: 60 2RF Thera M Plus (ferrous fumarat) 9 mg iron-400 mcg Tablet 1 tab PO DAILY Qty: 30 2RF metoprolol succinate 50 mg capsule,sprinkle,ER 24hr 50 mg PO DAILY Qty: 60 2RF losartan 25 mg Tablet 25 mg PO DAILY Qty: 30 2RF fluticasone propion-salmeterol [Advair Diskus] 500 MCG/50 MCG blister with device 2 puff INH BIDRT Qty: 1 0RF albuterol sulfate 90 mcg/actuation HFA aerosol inhaler 1 puff Inhalation PRN PRN (Reason: Shortness Of Breath) Qty: 1 0RF sildenafil 50 mg tablet 50 mg PO DAILY cetirizine 10 mg tablet 10 mg PO DAILY tamsulosin 0.4 mg capsule 0.8 mg PO DAILY olopatadine 0.1 % drops 2 drp EYE-BOTH DAILY PRN (Reason: Eye Irritation) Patient Comments: [NO ORIGINAL SIG] telmisartan 80 mg tablet 80 mg PO DAILY omeprazole 20 mg capsule,delayed release(DR/EC) 20 mg PO BID hydrochlorothiazide 25 mg tablet 25 mg PO DAILY lidocaine 5 % adhesive patch,medicated 1 patch TOP DAILY PRN (Reason: pain) Qty: 15 0RF Rx Instructions: leave on most painful area for up to 12 hrs atorvastatin [Lipitor] 40 mg tablet 40 mg PO BEDTIME acetaminophen [Tylenol Extra Strength] 500 mg tablet 1,000 mg PO TID PRN (Reason: pain) meloxicam 7.5 mg tablet 7.5 mg PO BID Qty: 60 5RF gabapentin 300 mg capsule 300 mg PO .COMPLEX Qty: 90 2RF Rx Instructions: 1-2 PO Tid to begin at HS and titrate to pain relief Referrals: Get Jeffries ARNP [Primary Care Provider] - Stand Alone Forms: Patient Portal/API ED Sign-out <Della Mark DO - Last Filed: 06/04/23 07:46> Cosign ED Attending Cosignature Attestation: I was immediately available in the department for consultation.
--- NOTE | 2023-06-02 15:03 | DI.RAD.S_ITS ---
PROCEDURE: XR CHEST 2V INDICATIONS: Left lower lobe suspect PNA/cough 2 wks TECHNIQUE: 2 views of the chest were acquired. COMPARISON: [facility], CR, XR CHEST 1V, 05/02/2022, 9:57. [facility], CR, XR CHEST 1V, 01/14/2021, 16:32. FINDINGS: Surgical changes and devices: ACDF Lungs and pleura: Low lung volumes. Prominent interstitial markings. Right hemidiaphragm eventration. No pleural effusions or pneumothorax. Mediastinum: Mediastinal contours are normal. Heart size is normal. Bones and chest wall: No suspicious bony abnormalities. Soft tissues appear unremarkable. IMPRESSION: Prominent interstitial markings, may be secondary to low lung volumes or interstitial edema and clinical correlation is recommended. No focal pulmonary consolidations. Dictated by: Juan Mckenna M.D. on 06/02/2023 at 15:50 Approved by: Juan Mckenna M.D. on 06/02/2023 at 15:51
[2023-06-02 15:17] LABS: Appearance Urine UA CLEAR; Bilirubin Urine UA NEGATIVE (NEGATIVE); Color Urine UA YELLOW; Glucose Urine UA NEGATIVE (Negative); Ketones Urine UA NEGATIVE (NEGATIVE); Leukocyte Esterase Urine UA NEGATIVE (NEGATIVE); Nitrite Urine UA NEGATIVE (Negative); Occult Blood Urine UA NEGATIVE (Negative); Protein Urine UA NEGATIVE (Negative); Urobilinogen Urine UA 0.2 E.U./dL (0.2); pH Urine UA 5.5 (4.5-8.0)
[2023-06-02 15:19] LABS: Add Manual Diff / Slide Review NO; Basophils Absolute Auto 100 /uL (0-100); Eosinophils Absolute Auto 100 /uL (0-450); Eosinophils Percent Auto 1.8 % (2-4); Hematocrit 42.7 % (41-53); Hemoglobin 14.5 g/dL (13.5-17.5); Lymphocytes Absolute Auto 1100 /uL (1100-4500); Lymphocytes Percent Auto 13.7 % (25-40); Mean Corpuscular Hemoglobin 28.7 PG (26-34); Mean Corpuscular Volume 84.4 fL (80-100); Monocytes Absolute Auto 900 /uL (0-900); Monocytes Percent Auto 11.7 % (3-14); Neutrophils Absolute Auto 5600 /uL (1500-7000); Neutrophils Percent Auto 71.8 % (50-75); Platelet Count 188 X10^3/uL (150-400); Red Blood Cell Count 5.06 X10^6/uL (4.5-5.9); Red Cell Distribution Width 13.6 % (11.6-14.8); White Blood Cell Count 7.8 X10^3/uL (4.5-11.0)
[2023-06-02 15:27] LABS: Bacteria Urine Occasional (0-1); Culture Indicated Urine Cult Not Indicated; RBC Urine None Seen (0-5/HPF); Squamous Epithelial Cell Urine None Seen (0-5/HPF); Urine Volume 10mL (spun); WBC Urine 0-1/HPF (0-5/HPF)
[2023-06-02 15:49] LABS: Alanine Aminotransferase 28 IU/L (<50); Albumin 3.9 g/dL (3.5-5.0); Albumin Globulin Ratio 1.7 (1.0-2.8); Alkaline Phosphatase 72 U/L (38-126); Aspartate Aminotransferase 29 IU/L (17-59); BUN Creatinine Ratio 14.3 (6-22); Bilirubin Total 0.6 mg/dL (0.2-1.3); Blood Urea Nitrogen 9 mg/dL (9-20); Calcium 9.2 mg/dL (8.4-10.2); Carbon Dioxide 32 mmol/L (22-32); Chloride 101 mmol/L (98-107); Estimated Glomerular Filt Rate > 60 mL/min (>60); Globulin 2.3 g/dL (1.7-4.1); Glucose 115 mg/dL (80-110); HEMOLYSIS 19 (0-50); Lipase 52 U/L (23-300); Potassium 3.9 mmol/L (3.4-5.1); Sodium 134 mmol/L (137-145); Total Protein 6.2 g/dL (6.3-8.2)
[2023-06-02 16:05] LABS: Procalcitonin 0.04 ng/mL (<0.5)
[2023-06-02 16:37] VITALS: BP 163/82; PULSE 57; RESP 16; O2SAT 97
[2023-06-02] MEDS: ACETAMINOPHEN 325 MG TABLET 975 MG PO (16:55)
[2023-06-02] MEDS: BACLOFEN 10 MG TABLET PO (16:55)
[2023-06-02] MEDS: KETOROLAC 30 MG/ML VIAL 15 MG IV (16:55)
[2023-06-02 18:41] VITALS: BP 189/93
[2023-06-02 18:48] VITALS: PULSE 57; O2SAT 96
== END 2023-06-02 19:04 | disposition home or self-care (01) ==
PROVIDERS: Emergency Medicine; Emergency Provider Student in an Organized Health Care Education/Training Program; Family Provider Internal Medicine; PCP Nurse Practitioner Family
DX: M54.50 Low back pain, unspecified (principal); M62.830 Muscle spasm of back
CPT/HCPCS: 36415; 71046; 74176; 80053; 81001; 83690; 84145; 85025; 86140; 96374; 99284; J1885

== ENCOUNTER 2023-10-16 02:10 | Emergency (ER) | payer MEDICARE, OTHER, SELFPAY ==
[2021-01-14 22:07] VITALS: BMI 33.7
[2023-10-16] VITALS (17 sets, daily range): BP systolic 129–210; BP diastolic 59–105; PULSE 74–105; RESP 10–80; TEMP 36.9; O2SAT 91–98; BMI 33.7
--- NOTE | 2023-10-16 02:21 | DI.RAD.S_ITS ---
PROCEDURE: XR CHEST 1V INDICATIONS: Shortness of breath TECHNIQUE: One view of the chest was acquired. COMPARISON: [facility], CR, XR CHEST 1V, 05/02/2022, 9:57. [facility], CR, XR CHEST 2V, 06/02/2023, 15:22. FINDINGS: Surgical changes and devices: Cervical spine fixation hardware is partially seen. Lungs and pleura: An incomplete inspiratory result is noted, causing a crowded appearance to the lung markings. No focal infiltrates are seen. Mild generalized interstitial prominence can be seen. No pneumothorax or significant pleural effusions are seen. Mediastinum: Mediastinal contours appear normal. Heart size is normal. Bones and chest wall: No suspicious bony lesions. Age-appropriate bony degenerative changes are seen. Overlying soft tissues appear unremarkable. IMPRESSION: Mild interstitial prominence can be seen, which is likely related to artifact from the incomplete inspiratory result. Differential diagnosis includes mild/early pulmonary edema, however. Postoperative and degenerative changes are seen. Note: No significant discrepancy from the preliminary report. Dictated by: Flynn Abrams M.D. on 10/16/2023 at 6:37 Approved by: Flynn Abrams M.D. on 10/16/2023 at 6:38
--- NOTE | 2023-10-16 02:26 | EKG_ITS ---
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
--- NOTE | 2023-10-16 02:29 | ED.SOB ---
HPI - SOB/Dyspnea General Chief Complaint: Shortness of Breath/Dyspnea Stated Complaint: CHEST PAIN Time Seen by Provider: 10/16/23 02:23 History of Present Illness HPI Narrative: 72yoM with PMH asthma, HTN presents for shortness of breath. States that he woke up with an acid reflux sensation and chest pressure, which he states lead to his shortness of breath. Tried his inhaler at home without significant relief. Patient states that his reflux and chest pain have resolved, but out of precaution he presented for evaluation. Denies history of heart problems. Patient states that his current symptoms feel consistent with an asthma exacerbation Related Data Home Medications Medication Instructions Recorded Confirmed atorvastatin 40 mg tablet (Lipitor) 40 mg PO BEDTIME 01/27/18 03/02/23 acetaminophen 500 mg tablet 1,000 mg PO TID PRN pain 12/25/18 03/02/23 (Tylenol Extra Strength) cetirizine 10 mg tablet 10 mg PO DAILY 03/02/23 03/02/23 hydrochlorothiazide 25 mg tablet 25 mg PO DAILY 03/02/23 03/02/23 olopatadine 0.1 % eye drops 2 drp EYE-BOTH DAILY PRN Eye 03/02/23 03/02/23 Irritation omeprazole 20 mg capsule,delayed 20 mg PO BID 03/02/23 03/02/23 release sildenafil 50 mg tablet 50 mg PO DAILY 03/02/23 03/02/23 tamsulosin 0.4 mg capsule 0.8 mg PO DAILY 03/02/23 03/02/23 telmisartan 80 mg tablet 80 mg PO DAILY 03/02/23 03/02/23 Previous Rx's Medication Instructions Recorded lidocaine 5 % topical patch 1 patch topical DAILY PRN pain #15 05/03/19 ea gabapentin 300 mg capsule 300 mg PO .COMPLEX #90 caps 01/07/20 meloxicam 7.5 mg tablet 7.5 mg PO BID inflammatory pain 01/07/20 #60 tabs albuterol sulfate 2.5 mg/3 mL 2.5 mg (3 mL) INH RTQ4HR PRN 01/17/21 (0.083 %) solution for nebulization Shortness Of Breath Or Wheezing #40 mL albuterol sulfate 90 mcg/actuation 1 puff inhalation PRN PRN 01/17/21 aerosol inhaler Shortness Of Breath #1 g cholecalciferol (vitamin D3) 25 1,000 unit PO DAILY #60 tabs 01/17/21 mcg (1,000 unit) tablet fluticasone 500 mcg-salmeterol 50 2 puff INH BIDRT #1 ea 01/17/21 mcg/dose blistr powdr for inhalation (Advair Diskus) ipratropium 0.5 mg-albuterol 3 mg 3 ml INH [id number] PRN Shortness Of 01/17/21 (2.5 mg base)/3 mL nebulization Breath Or Wheezing #60 mL soln losartan 25 mg tablet 25 mg PO DAILY #30 tabs 01/17/21 melatonin 3 mg tablet 6 mg (2 x 3 mg) PO BEDTIME #60 tabs 01/17/21 metoprolol succinate 50 mg capsule 50 mg PO DAILY #60 ea 01/17/21 sprinkle, ext. release 24 hr multivitamin-iron 9 mg-folic acid 1 tab PO DAILY #30 tabs 01/17/21 400 mcg-calcium and minerals tablet (Thera M Plus (ferrous fumarate)) trazodone 100 mg tablet 100 mg PO BEDTIME #60 tabs 01/17/21 zinc sulfate 50 mg zinc (220 mg) 220 mg (4.4 x 50 mg zinc (220 mg)) 01/17/21 capsule PO DAILY #60 caps lidocaine 5 % topical patch 1 patch topical DAILY #15 ea 06/02/23 prednisone 20 mg tablet 40 mg (2 x 20 mg) PO DAILY #10 tabs 10/16/23 Allergies Allergy/AdvReac Type Severity Reaction Status Date / Time sulfamethoxazole Allergy Severe rash and Verified 03/02/23 09:40 [From ] swelling trimethoprim [From OCTRA] Allergy Severe rash and Verified 03/02/23 09:40 swelling Penicillins [PENICILLINS] Allergy Unknown rash and Verified 03/02/23 09:40 swelling shellfish derived AdvReac Mild Swelling Verified 03/02/23 09:40 of Lip/Tongue/Throat Patient History Medical History Cervical facet syndrome Cervical radiculopathy at C7 Chronic radicular cervical pain Brachial plexopathy Tendinopathy of left rotator cuff Surgical History Status post cervical spinal fusion Family History Other Medical history non-contributory Social History household members: spouse Smoking Status: Never smoker alcohol intake: never additional social history: Never smoker, no ETOH Smoking Status: Never smoker alcohol intake frequency: holidays/special occasions only Substance Use Type: does not use Exam Initial Vital Signs Initial Vital Signs: Vital Signs Temperature 98.4 F 10/16/23 02:21 Pulse Rate 85 10/16/23 02:21 Respiratory Rate 80 H 10/16/23 02:21 Blood Pressure 210/105 H 10/16/23 02:21 Pulse Oximetry 97 10/16/23 02:21 Oxygen Delivery Method Room Air 10/16/23 02:21 Const: Awake, alert, appears chronically unwell Cardiac: regular rate, regular rhythm RESP: Mild increased work of breathing, diffuse, loud expiratory wheezes all lung hernandez Skin: Warm, Dry, intact, no rashes Neuro: AO x3, CN II-XII grossly intact, moves all extremities Course Orders Ordered: ED Orders 10/16/23 02:21 XR chest 1V Stat EKG-12 Lead Stat Measure peak expiratory flow ONCE RT Consult Eval and Treat NOW 10/16/23 02:45 Complete Blood Count AUTO DIFF Stat Comprehensive Metabolic Panel Stat Lactate (Lactic Acid) Stat NT-proBNP (BNP-Adult 18+) Stat Prothrombin Time INR Stat Troponin I Stat 10/16/23 04:40 Troponin I Stat Discontinued Medications Albuterol (Albuterol 2.5 Mg/3 Ml Neb (Adult)) 2.5 mg INH NOW ONE Stop: 10/16/23 02:23 Last Admin: 10/16/23 02:39 Dose: 2.5 mg Documented By: SAMAN Albuterol/Ipratropium (Albuterol/Ipratropium 3 Ml Ampul) 3 ml INH NOW ONE Stop: 10/16/23 02:39 Last Admin: 10/16/23 02:40 Dose: 3 ml Documented By: SAMAN Albuterol/Ipratropium (Albuterol/Ipratropium 3 Ml Ampul) 6 ml INH NOW ONE Stop: 10/16/23 03:21 Methylprednisolone (Methylprednisolone 125 Mg/2 Ml Vial) 125 mg IV NOW ONE Stop: 10/16/23 02:43 Last Admin: 10/16/23 03:15 Dose: 125 mg Documented By: Vital Signs Vital signs: Vital Signs - 8 hr 10/16/23 02:21 10/16/23 02:22 10/16/23 02:30 Temperature 98.4 F Pulse Rate 85 80 74 Respiratory Rate 80 H 21 10 L Blood Pressure 210/105 H Pulse Oximetry 97 96 98 Oxygen Delivery Method Room Air Room Air 10/16/23 02:31 10/16/23 02:31 10/16/23 03:00 Temperature Pulse Rate 76 88 Respiratory Rate 10 L 14 Blood Pressure 160/85 H Pulse Oximetry 98 97 Oxygen Delivery Method Room Air Room Air 10/16/23 03:01 10/16/23 03:01 10/16/23 03:20 Temperature Pulse Rate 86 Respiratory Rate 17 Blood Pressure 145/63 H 151/71 H Pulse Oximetry 96 Oxygen Delivery Method 10/16/23 03:20 10/16/23 03:30 10/16/23 03:40 Temperature Pulse Rate 96 H 89 Respiratory Rate 20 20 Blood Pressure 163/70 H Pulse Oximetry 92 98 Oxygen Delivery Method 10/16/23 03:40 10/16/23 04:00 10/16/23 04:00 Temperature Pulse Rate 88 91 H Respiratory Rate 17 16 Blood Pressure 134/59 L Pulse Oximetry 96 91 Oxygen Delivery Method MDM - SOB/Dyspnea Differential Diagnosis Differential diagnosis: Likely acute exacerbation of chronic obstructive airways disease, congestive heart failure, community acquired pneumonia and asthma with exacerbation Lab Data 10/16/23 02:45 10/16/23 02:45 Labs: Lab Results 10/16/23 10/16/23 Range/Units 02:45 04:40 WBC 6.1 (4.5-11.0) X10^3/uL RBC 5.06 (4.5-5.9) X10^6/uL Hgb 14.7 (13.5-17.5) g/dL Hct 42.9 (41-53) % MCV 84.7 (80-100) fL MCH 29.0 (26-34) PG MCHC 34.2 (30-36) % RDW 13.8 (11.6-14.8) % Plt Count 152 (150-400) X10^3/uL Neut % (Auto) 64.3 (50-75) % Lymph % (Auto) 24.4 L (25-40) % [place] % (Auto) 8.0 (3-14) % Eos % (Auto) 2.7 (2-4) % Baso % (Auto) 0.6 (0-2) % Neut # (Auto) 3900 (3637-2898) /uL Lymph # (Auto) 1500 (3904-1359) /uL [place] # (Auto) 500 (0-900) /uL Eos # (Auto) 200 (0-450) /uL Baso # (Auto) 0 (0-100) /uL PT 10.3 (9.4-12.5) SECONDS INR 0.9 (0.9-1.3) Sodium 134 L (137-145) mmol/L Potassium 3.7 (3.4-5.1) mmol/L Chloride 98 (98-107) mmol/L Carbon Dioxide 30 (22-32) mmol/L BUN 17 (9-20) mg/dL Creatinine 0.77 (0.66-1.25) mg/dL Estimated GFR > 60 (>60) mL/min BUN/Creatinine Ratio 22.1 H (6-22) Glucose 209 H (80-110) mg/dL Lactate 2.7 H (0.7-2.1) mmol/L Calcium 8.8 (8.4-10.2) mg/dL Total Bilirubin 0.5 (0.2-1.3) mg/dL AST 26 (17-59) IU/L ALT 28 (<50) IU/L Alkaline Phosphatase 70 (38-126) U/L Troponin I < 0.012 < 0.012 (0.01-0.034) ng/mL NT-Pro-B Natriuret Pep < 20 (<125) pg/mL Total Protein 6.1 L (6.3-8.2) g/dL Albumin 4.0 (3.5-5.0) g/dL Globulin 2.1 (1.7-4.1) g/dL Albumin/Globulin Ratio 1.9 (1.0-2.8) Imaging Data Chest x-ray: My Impression: Preliminary review: No acute findings ECG Data Interpretation: NSR at [address] normal [place] No ST-T wave changes MDM Narrative Medical decision making narrative: Chest pain and shortness of breath. Patient states that his only lingering complaint is his shortness of breath that is similar to an asthma exacerbation. Extensive wheezing auscultated on exam. Respiratory therapy paged to administered nebulizer treatments. EKG normal sinus rhythm without concerning ischemic findings. Laboratory work is reviewed, WBC count 6.1, hemoglobin 14.7, platelets 152, sodium 134, potassium 3.7, creatinine 0.66, troponin undetectable x2, BNP undetectable. Chest x-ray negative for acute findings. Patient requested a another nebulizer treatment, which was ordered. Patient also given 125 mg of Solu-Medrol. Patient reassessed, sleeping comfortably in bed. After waking patient states he felt still somewhat tight in the chest but overall much better than when he arrived. He declined additional nebulizer treatments in the emergency department. Patient to be discharged on prednisone. [facility] [place] [facility] [place] did explain to the patient that it would be closed today due to it being the weekend, patient stated that [facility] but he felt like he could wait until Tuesday to fill the prescription. He states that he just got a refill of all of his nebulizers and does not need any further of these medications at this time. ED return precautions discussed at bedside Discharge Plan Departure Patient Disposition: Home Clinical Impression: Acute asthma exacerbation, Chest pain Instructions: DI for Asthma -- Adult Activity Restrictions/Additional Instructions: Your laboratory work and EKG today were normal and your X ray did not show any pneumonia. Continue to use your inhalers as instructed. Take the prescribed steroids. Please follow up with your asthma doctor. Prescriptions: New prednisone 20 mg tablet 40 mg PO DAILY Qty: 10 0RF No Action ipratropium-albuterol 0.5 mg-3 mg(2.5 mg base)/3 mL Solution For Nebulization 3 ml INH [id number] PRN (Reason: Shortness Of Breath Or Wheezing) Qty: 60 2RF albuterol sulfate 2.5 mg /3 mL (0.083 %) Solution For Nebulization 2.5 mg INH RTQ4HR PRN (Reason: Shortness Of Breath Or Wheezing) Qty: 40 0RF cholecalciferol (vitamin D3) 25 mcg (1,000 unit) Tablet 1,000 unit PO DAILY Qty: 60 2RF melatonin 3 mg Tablet 6 mg PO BEDTIME Qty: 60 2RF trazodone 100 mg Tablet 100 mg PO BEDTIME Qty: 60 2RF zinc sulfate 50 mg zinc (220 mg) Capsule 220 mg PO DAILY Qty: 60 2RF Thera M Plus (ferrous fumarat) 9 mg iron-400 mcg Tablet 1 tab PO DAILY Qty: 30 2RF metoprolol succinate 50 mg capsule,sprinkle,ER 24hr 50 mg PO DAILY Qty: 60 2RF losartan 25 mg Tablet 25 mg PO DAILY Qty: 30 2RF fluticasone propion-salmeterol [Advair Diskus] 500 MCG/50 MCG blister with device 2 puff INH BIDRT Qty: 1 0RF albuterol sulfate 90 mcg/actuation HFA aerosol inhaler 1 puff Inhalation PRN PRN (Reason: Shortness Of Breath) Qty: 1 0RF sildenafil 50 mg tablet 50 mg PO DAILY cetirizine 10 mg tablet 10 mg PO DAILY tamsulosin 0.4 mg capsule 0.8 mg PO DAILY olopatadine 0.1 % drops 2 drp EYE-BOTH DAILY PRN (Reason: Eye Irritation) Patient Comments: [NO ORIGINAL SIG] telmisartan 80 mg tablet 80 mg PO DAILY omeprazole 20 mg capsule,delayed release(DR/EC) 20 mg PO BID hydrochlorothiazide 25 mg tablet 25 mg PO DAILY lidocaine 5 % adhesive patch,medicated 1 patch topical DAILY Qty: 15 0RF Rx Instructions: leave on most painful area for up to 12 hrs lidocaine 5 % adhesive patch,medicated 1 patch TOP DAILY PRN (Reason: pain) Qty: 15 0RF Rx Instructions: leave on most painful area for up to 12 hrs atorvastatin [Lipitor] 40 mg tablet 40 mg PO BEDTIME acetaminophen [Tylenol Extra Strength] 500 mg tablet 1,000 mg PO TID PRN (Reason: pain) meloxicam 7.5 mg tablet 7.5 mg PO BID Qty: 60 5RF gabapentin 300 mg capsule 300 mg PO .COMPLEX Qty: 90 2RF Rx Instructions: 1-2 PO Tid to begin at HS and titrate to pain relief Referrals: Get Jeffries ARNP [Primary Care Provider] - Stand Alone Forms: Patient Portal/API
[2023-10-16] MEDS: ALBUTEROL 2.5 MG/3 ML NEB (ADULT) INH (02:39)
[2023-10-16] MEDS: ALBUTEROL/IPRATROPIUM 3 ML AMPUL INH (02:40)
[2023-10-16 02:54] LABS: Add Manual Diff / Slide Review NO; Basophils Absolute Auto 0 /uL (0-100); Basophils Percent Auto 0.6 % (0-2); Eosinophils Absolute Auto 200 /uL (0-450); Eosinophils Percent Auto 2.7 % (2-4); Hematocrit 42.9 % (41-53); Hemoglobin 14.7 g/dL (13.5-17.5); Lymphocytes Absolute Auto 1500 /uL (1100-4500); Lymphocytes Percent Auto 24.4 % (25-40); Mean Corpuscular HGB Conc 34.2 % (30-36); Mean Corpuscular Volume 84.7 fL (80-100); Monocytes Absolute Auto 500 /uL (0-900); Neutrophils Absolute Auto 3900 /uL (1500-7000); Neutrophils Percent Auto 64.3 % (50-75); Platelet Count 152 X10^3/uL (150-400); Red Blood Cell Count 5.06 X10^6/uL (4.5-5.9); Red Cell Distribution Width 13.8 % (11.6-14.8); White Blood Cell Count 6.1 X10^3/uL (4.5-11.0)
[2023-10-16 03:01] LABS: INR 0.9 (0.9-1.3); Prothrombin Time 10.3 SECONDS (9.4-12.5)
[2023-10-16] MEDS: methylPREDNISolone 125 MG/2 ML VIAL IV (03:15)
[2023-10-16 03:16] LABS: Alanine Aminotransferase 28 IU/L (<50); Albumin Globulin Ratio 1.9 (1.0-2.8); Alkaline Phosphatase 70 U/L (38-126); Aspartate Aminotransferase 26 IU/L (17-59); BUN Creatinine Ratio 22.1 (6-22); Bilirubin Total 0.5 mg/dL (0.2-1.3); Blood Urea Nitrogen 17 mg/dL (9-20); Calcium 8.8 mg/dL (8.4-10.2); Carbon Dioxide 30 mmol/L (22-32); Chloride 98 mmol/L (98-107); Estimated Glomerular Filt Rate > 60 mL/min (>60); Globulin 2.1 g/dL (1.7-4.1); Glucose 209 mg/dL (80-110); HEMOLYSIS 25 (0-50); Lactate (Lactic Acid) 2.7 mmol/L (0.7-2.1); Potassium 3.7 mmol/L (3.4-5.1); Sodium 134 mmol/L (137-145); Total Protein 6.1 g/dL (6.3-8.2)
[2023-10-16 03:27] LABS: NT-proBNP (BNP-Adult 18+) < 20 pg/mL (<125); Troponin I < 0.012 ng/mL (0.01-0.034)
[2023-10-16 04:27] LABS: Reflexed Lactate in 2 Hours Y
[2023-10-16 05:26] LABS: Troponin I < 0.012 ng/mL (0.01-0.034)
--- NOTE | 2023-10-16 05:51 | PC.NURSE ---
Pt reports feeling much better. No wheezing noted on inpiraton or expiration. Pt ambulatory with steady gait.
[2023-10-16 08:12] LABS: Lactate 2HR (Lactic Acid Rflx) 2.5 mmol/L (0.7-2.1)
== END 2023-10-16 05:53 | disposition home or self-care (01) ==
PROVIDERS: Emergency Provider Emergency Medicine; Family Provider Internal Medicine; PCP Nurse Practitioner Family
DX: J45.901 Unspecified asthma with (acute) exacerbation (principal); R07.9 Chest pain, unspecified
CPT/HCPCS: 36415; 71045; 80053; 83605; 83880; 84484; 85025; 85610; 93005; 94150; 94640; 96374; 99284; J2919; J7613

== ENCOUNTER → 2024-01-02 15:10 | Outpatient (CLI) | payer MEDICARE, OTHER, SELFPAY ==
[2021-01-14 22:07] VITALS: BMI 33.7
--- NOTE | 2024-01-02 15:13 | DI.US.S_ITS ---
PROCEDURE: US ARTERIAL DUPLEX LE BI INDICATIONS: EDEMA TECHNIQUE: Color and pulse Doppler interrogation was performed of both lower extremity arterial systems, with image documentation. COMPARISON: None. FINDINGS: Right lower extremity: Common femoral artery: 125.9 cm/sec, with patent triphasic flow. Deep femoral artery: 69.4 cm/sec, with patent triphasic flow. Proximal superficial femoral artery: 14.6 cm/sec, with patent triphasic flow. Mid superficial femoral artery: 108.3 cm/sec, with patent triphasic flow. Distal superficial femoral artery: 13.7 cm/sec, with patent triphasic flow. Popliteal artery: 59.2 cm/sec, with patent triphasic flow. Posterior tibial artery: 101.8 cm/sec, with patent triphasic flow. Anterior tibial artery/dorsalis pedis: 143.4 cm/sec, with patent triphasic flow. Wallace-scale imaging description: No significant atheromatous disease is seen. Left lower extremity: Common femoral artery: 103.7 cm/sec, with patent triphasic flow. Deep femoral artery: 86.1 cm/sec, with patent triphasic flow. Proximal superficial femoral artery: 120.3 cm/sec, with patent triphasic flow. Mid superficial femoral artery: 92.5 cm/sec, with patent triphasic flow. Distal superficial femoral artery: 138.8 cm/sec, with patent triphasic flow. Popliteal artery: 82.4 cm/sec, with patent triphasic flow. Posterior tibial artery: 156.4 cm/sec, with patent triphasic flow. Anterior tibial artery/dorsalis pedis: 65.7 cm/sec, with patent triphasic flow. Wallace-scale imaging description: No significant atheromatous disease is seen. IMPRESSION: 1. No significant stenosis is seen in the bilateral lower extremity arteries. 2. However, venous disease may be a cause of lower extremity edema and further assessment of the lower extremity veins may be performed with ultrasound. Dictated by: Abdi Morris M.D. on 01/04/2024 at 9:32 Approved by: Abdi Morris M.D. on 01/04/2024 at 9:35
== END ==
PROVIDERS: Family Provider Internal Medicine; PCP Nurse Practitioner Family; Referring Provider Family Medicine; Visit Provider Family Medicine
DX: R60.9 Edema, unspecified (principal)
CPT/HCPCS: 93925

== ENCOUNTER → 2024-02-16 07:51 | Outpatient (CLI) | payer MEDICARE, OTHER, SELFPAY ==
[2021-01-14 22:07] VITALS: BMI 33.7
--- NOTE | 2024-02-16 | DI.US.S_ITS ---
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 COMPARISON: None. FINDINGS: Right: The common femoral, femoral, popliteal, and the visualized calf veins are normally compressible, and free of intraluminal thrombus. Color and pulse Doppler demonstrate normal phasic intravascular flow. There is normal augmentation response to distal compression maneuver. Left: The common femoral, femoral, popliteal, and the visualized calf veins are normally compressible, and free of intraluminal thrombus. Color and pulse Doppler demonstrate normal phasic intravascular flow. There is normal augmentation response to distal compression maneuver. IMPRESSION: No findings of deep venous thrombosis in either lower extremity. Dictated by: Williams Paniagua M.D. on 02/16/2024 at 9:15 Approved by: Williams Paniagua M.D. on 02/16/2024 at 9:15
== END ==
PROVIDERS: Family Provider Internal Medicine; PCP Family Medicine; Referring Provider Family Medicine; Visit Provider Family Medicine
DX: R60.9 Edema, unspecified (principal)
CPT/HCPCS: 93970

== ENCOUNTER 2024-11-14 10:12 | Emergency (ER) | payer MEDICARE, OTHER, SELFPAY ==
[2021-01-14 22:07] VITALS: BMI 33.7
[2024-11-14 10:25] VITALS: BP 142/90; PULSE 61; RESP 16; TEMP 36.6; O2SAT 94; BMI 33.7
--- NOTE | 2024-11-14 10:29 | DI.RAD.S_ITS ---
PROCEDURE: XR HIP W PEL IF DONE RT 2V INDICATIONS: h/o hip replacement increase pain TECHNIQUE: AP pelvis with lateral view(s) of the right hip(s). COMPARISON: [facility], , XR HIP W PEL IF DONE RT 2V, 05/03/2019, 11:23. FINDINGS: Bones: Expected appearance of bilateral total hip arthroplasties. Left hip arthroplasty incompletely visualized. Right hip arthroplasty fully visualized. No evidence of hardware failure or loosening. No fractures or dislocations. Pelvic ring appears intact. No suspicious bony lesions. Soft tissues: The visualized bowel gas pattern is normal. No suspicious soft tissue calcifications. IMPRESSION: Expected appearance of total right hip arthroplasty. No evidence acute bony abnormality. Dictated by: Dex Singh M.D. on 11/14/2024 at 11:17 Approved by: Dex Singh M.D. on 11/14/2024 at 11:19
--- NOTE | 2024-11-14 11:45 | ED_ITS ---
HPI - Extremity Problem <Remedios Bloom PA-C - Last Filed: 11/14/24 13:51> General Chief complaint: Extremity Problem,Nontraumatic Stated complaint: Right leg pain. Time Seen by Provider: 11/14/24 11:44 Source: patient Mode of arrival: Ambulatory History of Present Illness HPI Narrative: Mr. Agee is a very pleasant 74-year-old male with a past medical history of bilateral hip arthroplasties, asthma, hypertension, hyperlipidemia who presents to the emergency department for right groin/leg pain x1 day. Patient states last night he noticed a spasms/cramp in his right inner thigh. He took ibuprofen which did not help. He was unable to sleep because of the pain so he sat in his recliner and was more comfortable here and was able to sleep for few hours. Pain is worse by lying flat and improved by sitting up. When he woke up again he took some more ibuprofen and the symptoms seemed to improve however they then came back again. Describes cramping pain in the right inner groin radiating to the thigh and down the leg. He did have some tingling in the right foot last night that resolved. States that he sometimes gets similar symptoms since having his hip replaced 14 years ago in both legs but this usually happens in the winter. He is ambulatory but with a limp and using a cane. Reports that he does have increase in the pain if he coughs. He does not notice any obvious bulging in his abdomen or scrotum. He does not have diabetes. No fevers or chills. No saddle anesthesia, bowel or bladder incontinence or retention, dysuria, hematuria, back pain flank pain. Related Data Home Medications ?Medication ?Instructions ?Recorded ?Confirmed atorvastatin 40 mg tablet (Lipitor) 40 mg PO BEDTIME 1 03/30/17 03/02/23 acetaminophen 500 mg tablet 1,000 mg PO TID PRN pain 1 02/24/18 03/02/23 (Tylenol Extra Strength) cetirizine 10 mg tablet 10 mg PO DAILY 03/02/2302/21 hydrochlorothiazide 25 mg tablet 25 mg PO DAILY 03/02/23 olopatadine 0.1 % eye drops 2 drp EYE-BOTH DAILY PRN E ye 03/02/23 03/02/23 Irritation omeprazole 20 mg capsule,delayed 20 mg PO BID 03/02/23 03/02/23 release sildenafil 50 mg tablet 50 mg PO DAILY 03/02/2302/21 tamsulosin 0.4 mg capsule 0.8 mg PO DAILY 03/02/2312/14 telmisartan 80 mg tablet 80 mg PO DAILY 03/02/2302/21 Previous Rx's ?Medication ?Instructions ?Recorded lidocaine 5 % topical patch 1 patch topical DAILY PRN pain #15 05/03/19 ea gabapentin 300 mg capsule 300 mg PO .COMPLEX #90 caps 01/07/20 meloxicam 7.5 mg tablet 7.5 mg PO BID inflammatory p ain 01/07/20 #60 tabs albuterol sulfate 2.5 mg/3 mL 2.5 mg (3 mL) INH RTQ4HR PRN 01/17/21 (0.083 %) solution for nebulization Shortness Of Breat h Or Wheezing #40 mL albuterol sulfate 90 mcg/actuation 1 puff inhalation P RN PRN 01/17/21 aerosol inhaler Shortness Of Breath #1 g cholecalciferol (vitamin D3) 25 1,000 unit PO DAILY #6 0 tabs 01/17/21 mcg (1,000 unit) tablet fluticasone 500 mcg-salmeterol 50 2 puff INH BIDRT #1 ea 01/17/21 mcg/dose blistr powdr for inhalation (Advair Diskus) ipratropium 0.5 mg-albuterol 3 mg 3 ml INH [id number] OK N Shortness Of 01/17/21 (2.5 mg base)/3 mL nebulization Breath Or Wheezing #60 mL soln losartan 25 mg tablet 25 mg PO DAILY #30 tabs 12/23 09/10 melatonin 3 mg tablet 6 mg (2 x 3 mg) PO BEDTIME # 60 tabs 01/17/21 metoprolol succinate 50 mg capsule 50 mg PO DAILY #60 ea 01/17/21 sprinkle, ext. release 24 hr multivitamin-iron 9 mg-folic acid 1 tab PO DAILY #30 t abs 01/17/21 400 mcg-calcium and minerals tablet (Thera M Plus (ferrous fumarate)) trazodone 100 mg tablet 100 mg PO BEDTIME #60 tabs 1 1/27/21 zinc sulfate 50 mg zinc (220 mg) 220 mg (4.4 x 50 mg z inc (220 mg)) 01/17/21 capsule PO DAILY #60 caps lidocaine 5 % topical patch 1 patch topical DAILY #15 ea 06/02/23 prednisone 20 mg tablet 40 mg (2 x 20 mg) PO DAILY # 10 tabs 10/16/23 cyclobenzaprine 5 mg tablet 5 mg PO TID PRN muscle spa sm #30 11/14/24 tabs lidocaine 5 % topical patch 1 patch topical DAILY #30 ea 11/14/24 (Lidoderm) prednisone 20 mg tablet 40 mg (2 x 20 mg) PO DAILY 5 days 11/14/24 #10 tabs Allergies Allergy/AdvReac Type Severity Reaction Status Date / Time sulfamethoxazole (From Allergy Severe rash and Verified 11/14/24 10:26 SEPTRA) swelling trimethoprim (From ) Allergy Severe rash and Verified 11/14/24 10:26 swelling Penicillins (PENICILLINS) Allergy Unknown rash and Verified 11/14/24 10:26 swelling shellfish derived AdvReac Mild Swelling Verified 11/14/24 10:26 of Lip/Tongue/Throat Review of Systems <Remedios Bloom PA-C - Last Filed: 11/14/24 13:51> Review of Systems ROS Unobtainable: All systems reviewed & are unremarkable except as noted in HPI and below Patient History <Remedios Bloom PA-C - Last Filed: 11/14/24 13:51> Medical History Cervical facet syndrome Cervical radiculopathy at C7 Chronic radicular cervical pain Brachial plexopathy Tendinopathy of left rotator cuff Surgical History Status post cervical spinal fusion Family History Other Medical history non-contributory Social History household members: spouse Smoking Status: Never smoker alcohol intake: never additional social history: Never smoker, no ETOH Smoking Status: Never smoker alcohol intake frequency: holidays/special occasions only Exam <Remedios Bloom PA-C - Last Filed: 11/14/24 13:51> Narrative Exam Narrative: GENERAL: 74 year old patient appears stated age. Well-developed patient, in no acute distress. HEAD: Atraumatic. Normocephalic. EYES: No scleral icterus. No injection or drainage. NECK: Trachea midline. Cervical ROM intact. CARDIOVASCULAR: Regular rate RESPIRATORY: ?Nonlabored respirations. ?Speaking in clear, full sentences. ? GASTROINTESTINAL: Abdomen soft, non-tender, nondistended. Bowel sounds present. No scrotal swelling or tenderness. EXTREMITIES: Very minimal BL LE edema. 2+ bilateral DP and PT pulses. No color change of the lower extremities. Legs are warm and well perfused. No calf tenderness bilaterally. Tenderness palpation of right inner thigh adductor muscles. Positive right straight leg raise. 5/5 bilateral plantar and dorsiflexion strength. BACK: No midline or paralumbar tenderness, no subjective back pain. NEURO: AOx3. ?Clear speech. ?Ambulates with a cane. SKIN: No rash or erythema of visible areas Initial Vital Signs Initial Vital Signs: Vital Signs Temperature 97.8 F 11/14/24 10:25 Pulse Rate 61 11/14/24 10:25 Respiratory Rate 16 11/14/24 10:25 Blood Pressure 142/90 H 11/14/24 10:25 Pulse Oximetry 94 11/14/24 10:25 Oxygen Delivery Method Room Air 11/14/24 10:25 <Poncho Laurent MD - Last Filed: 11/14/24 14:08> Initial Vital Signs Initial Vital Signs: Vital Signs Temperature 97.8 F 11/14/24 10:25 Pulse Rate 61 11/14/24 10:25 Respiratory Rate 16 11/14/24 10:25 Blood Pressure 142/90 H 11/14/24 10:25 Pulse Oximetry 94 11/14/24 10:25 Oxygen Delivery Method Room Air 11/14/24 10:25 Course <Remedios Bloom PA-C - Last Filed: 11/14/24 13:51> Orders Ordered: ED Orders 11/14/24 10:29 XR hip w pel RT 2V Stat Discontinued Medications Cyclobenzaprine HCl (Cyclobenzaprine 10 Mg Tablet) 10 mg PO NOW ONE Stop: 11/14/24 12:05 Last Admin: 11/14/24 12:29 Dose: 10 mg Documented By: KRISTAL Lidocaine (Lidocaine 5% Patch) 1 each TOP NOW ONE Stop: 11/14/24 12:05 Last Admin: 11/14/24 12:29 Dose: 1 each Documented By: KRISTAL Prednisone (Prednisone 20 Mg Tablet) 40 mg PO NOW ONE Stop: 11/14/24 12:05 Last Admin: 11/14/24 12:29 Dose: 40 mg Documented By: KRISTAL Vital Signs Vital signs: Vital Signs - 8 hr 11/14/24 10:25 11/14/24 12:43 Temperature 97.8 F Pulse Rate 61 57 L Respiratory Rate 16 17 Blood Pressure 142/90 H 194/90 H Pulse Oximetry 94 93 Oxygen Delivery Method Room Air Room Air <Poncho Laurent MD - Last Filed: 11/14/24 14:08> Orders Ordered: ED Orders 11/14/24 10:29 XR hip w pel RT 2V Stat Discontinued Medications Cyclobenzaprine HCl (Cyclobenzaprine 10 Mg Tablet) 10 mg PO NOW ONE Stop: 11/14/24 12:05 Last Admin: 11/14/24 12:29 Dose: 10 mg Documented By: KRISTAL Lidocaine (Lidocaine 5% Patch) 1 each TOP NOW ONE Stop: 11/14/24 12:05 Last Admin: 11/14/24 12:29 Dose: 1 each Documented By: KRISTAL Prednisone (Prednisone 20 Mg Tablet) 40 mg PO NOW ONE Stop: 11/14/24 12:05 Last Admin: 11/14/24 12:29 Dose: 40 mg Documented By: KRISTAL Vital Signs Vital signs: Vital Signs - 8 hr 11/14/24 10:25 11/14/24 12:43 Temperature 97.8 F Pulse Rate 61 57 L Respiratory Rate 16 17 Blood Pressure 142/90 H 194/90 H Pulse Oximetry 94 93 Oxygen Delivery Method Room Air Room Air MDM - Extremity (Nontraumatic) <Remedios Bloom PA-C - Last Filed: 11/14/24 13:51> Medical Records Attestation: I reviewed the patient's medical records. Imaging Data Right Hip XR w/ Pelvis: Radiologist's Impression: PROCEDURE: XR HIP W PEL IF DONE RT 2V INDICATIONS: h/o hip replacement increase pain TECHNIQUE: AP pelvis with lateral view(s) of the right hip(s). COMPARISON: [facility], , XR HIP W PEL IF DONE RT 2V, 05/03/2019, 11:23. FINDINGS: Bones: Expected appearance of bilateral total hip arthroplasties. Left hip arthroplasty incompletely visualized. Right hip arthroplasty fully visualized. No evidence of hardware failure or loosening. No fractures or dislocations. Pelvic ring appears intact. No suspicious bony lesions. Soft tissues: The visualized bowel gas pattern is normal. No suspicious soft tissue calcifications. IMPRESSION: Expected appearance of total right hip arthroplasty. No evidence acute bony abnormality. Dictated by: Dex Singh M.D. on 11/14/2024 at 11:17 Approved by: Dex Singh M.D. on 11/14/2024 at 11:19 [facility] Narrative Medical decision making narrative: 74-year-old male with a past medical history of bilateral hip arthroplasties, asthma, hypertension, hyperlipidemia who presents to the emergency department for right groin/leg pain x1 day. Differential diagnosis includes but is not limited to right hip arthritis, hardware issue, meralgia paresthetica, lumbar radiculopathy, muscle spasm, muscle strain, hernia, etc. On exam the patient is in no acute distress, nontoxic appearing, vital signs appropriate. He is ambulatory but with a cane/limp. Legs and groin were exposed revealing no skin or color changes, no unilateral edema, 2+ bilateral DP and PT pulses, sensation intact to light touch, 5/5 bilateral plantar and dorsiflexion strength. Patient is not having any fevers, bowel or bladder dysfunction, saddle anesthesia. No back pain however he does have positive right straight leg raise. X-ray pelvis and right hip was obtained in triage revealing an expected appearance of the total right hip arthroplasty with no evidence of acute bony abnormality. He does have some tenderness in the right adductor muscles as well and pain with external rotation of the hip. We will treat patient's muscle spasms with Flexeril which he has taken before. We will also treat radicular symptoms with prednisone, Lidoderm, ibuprofen and acetaminophen. Recommended follow up with the PCP for further management I do believe he would benefit from physical therapy. This time there is no sign of infection or vascular concern however discussed strict ER return precautions with the patient. He verbalized understanding of all information is happy with this plan. He declines the need for opioid pain medication. He is ambulatory and stable for discharge home. Discharge Plan Departure Patient Disposition: Home Clinical Impression: Right groin pain, Acute right lumbar radiculopathy Instructions: DI for Lumbar Radiculopathy Activity Restrictions/Additional Instructions: Dear Mr. Agee, Thank you for coming to the emergency department. Today you were evaluated for right groin/leg pain. X-ray of your hip does not reveal any problems with your hardware. I am concerned your symptoms are combination of lumbar radiculopathy in addition to some muscle spasms. You have been treated with a dose of steroids, muscle relaxer and topical numbing patch and I have sent these medications to your pharmacy as well. I would like you to use ibuprofen and acetaminophen for pain and also heat therapy on the muscles in the low back. Please follow up with your primary care doctor for further evaluation I do believe he would benefit from referral to physical therapy. Please return to the emergency department if you develop leg swelling, leg redness, severe pain, difficulty going to the bathroom, fevers, bulging in the groin or abdomen or any other concerns. Please take Ibuprofen (Motrin/Advil) or Acetaminophen (Tylenol) for pain. These are available over the counter. You may take Ibuprofen 400 mg every 6 hours with food for pain. You may also take Acetaminophen 650 mg every 4-6 hours for pain. Do not exceed 3000 mg of Tylenol a day as this can cause liver damage. Do not drink alcohol with either of these medications. Please follow up with your primary care doctor within the next 2-3 days for ER follow-up. (If you do not have a PCP you can call [phone]. ?to schedule an appointment with an [facility] Primary Care Provider) IF YOU DEVELOP ANY NEW OR WORSENING SYMPTOMS, RETURN TO THE ER! Please read the attached instructions, they highlight more specific treatments and interventions for you at home. Thank you for letting me participate in your care, Remedios Bloom PA-C Prescriptions: New prednisone 20 mg tablet 40 mg PO DAILY 5 Days Qty: 10 0RF lidocaine [Lidoderm] 5 % adhesive patch,medicated 1 patch topical DAILY Qty: 30 0RF Rx Instructions: leave on most painful area for up to 12 hrs cyclobenzaprine 5 mg tablet 5 mg PO TID PRN (Reason: muscle spasm) Qty: 30 0RF No Action ipratropium-albuterol 0.5 mg-3 mg(2.5 mg base)/3 mL Solution For Nebulization 3 ml INH [id number] PRN (Reason: Shortness Of Breath Or Wheezing) Qty: 60 2RF albuterol sulfate 2.5 mg /3 mL (0.083 %) Solution For Nebulization 2.5 mg INH RTQ4HR PRN (Reason: Shortness Of Breath Or Wheezing) Qty: 40 0RF cholecalciferol (vitamin D3) 25 mcg (1,000 unit) Tablet 1,000 unit PO DAILY Qty: 60 2RF melatonin 3 mg Tablet 6 mg PO BEDTIME Qty: 60 2RF trazodone 100 mg Tablet 100 mg PO BEDTIME Qty: 60 2RF zinc sulfate 50 mg zinc (220 mg) Capsule 220 mg PO DAILY Qty: 60 2RF Thera M Plus (ferrous fumarat) 9 mg iron-400 mcg Tablet 1 tab PO DAILY Qty: 30 2RF metoprolol succinate 50 mg capsule,sprinkle,ER 24hr 50 mg PO DAILY Qty: 60 2RF losartan 25 mg Tablet 25 mg PO DAILY Qty: 30 2RF fluticasone propion-salmeterol [Advair Diskus] 500 MCG/50 MCG blister with device 2 puff INH BIDRT Qty: 1 0RF albuterol sulfate 90 mcg/actuation HFA aerosol inhaler 1 puff Inhalation PRN PRN (Reason: Shortness Of Breath) Qty: 1 0RF sildenafil 50 mg tablet 50 mg PO DAILY cetirizine 10 mg tablet 10 mg PO DAILY tamsulosin 0.4 mg capsule 0.8 mg PO DAILY olopatadine 0.1 % drops 2 drp EYE-BOTH DAILY PRN (Reason: Eye Irritation) Patient Comments: [NO ORIGINAL SIG] telmisartan 80 mg tablet 80 mg PO DAILY omeprazole 20 mg capsule,delayed release(DR/EC) 20 mg PO BID hydrochlorothiazide 25 mg tablet 25 mg PO DAILY lidocaine 5 % adhesive patch,medicated 1 patch topical DAILY Qty: 15 0RF Rx Instructions: leave on most painful area for up to 12 hrs prednisone 20 mg tablet 40 mg PO DAILY Qty: 10 0RF lidocaine 5 % adhesive patch,medicated 1 patch TOP DAILY PRN (Reason: pain) Qty: 15 0RF Rx Instructions: leave on most painful area for up to 12 hrs atorvastatin [Lipitor] 40 mg tablet 40 mg PO BEDTIME acetaminophen [Tylenol Extra Strength] 500 mg tablet 1,000 mg PO TID PRN (Reason: pain) meloxicam 7.5 mg tablet 7.5 mg PO BID Qty: 60 5RF gabapentin 300 mg capsule 300 mg PO .COMPLEX Qty: 90 2RF Rx Instructions: 1-2 PO Tid to begin at HS and titrate to pain relief Referrals: Arron Orlando DO [Primary Care Provider, Family Practice] Stand Alone Forms: Patient Portal/API ED Sign-out <Poncho Laurent MD - Last Filed: 11/14/24 14:08> [facility] Attestation: I was immediately available in the department for consultation. ?This documentation has been reviewed and I agree with assessment and plan. Supervised by Poncho Laurent MD
[2024-11-14] MEDS: CYCLOBENZAPRINE 10 MG TABLET PO (12:29)
[2024-11-14] MEDS: LIDOCAINE 5% PATCH 1 EACH TOP (12:29)
[2024-11-14 12:43] VITALS: BP 194/90; PULSE 57; RESP 17; O2SAT 93
== END 2024-11-14 12:46 | disposition home or self-care (01) ==
PROVIDERS: Emergency Provider Physician Assistant; Family Provider Internal Medicine; PCP Family Medicine
DX: M54.16 Radiculopathy, lumbar region (principal); R10.31 Right lower quadrant pain
CPT/HCPCS: 73502; 99283

== ENCOUNTER 2024-11-29 23:35 | Emergency (ER) | payer MEDICARE, OTHER, SELFPAY ==
[2021-01-14 22:07] VITALS: BMI 33.7
[2024-11-29 23:46] VITALS: BP 170/79; PULSE 62; RESP 16; TEMP 37.1; O2SAT 95; BMI 33.7
--- NOTE | 2024-11-29 23:46 | DI.CT.S_ITS ---
PROCEDURE: CT HEAD/BRAIN WO CON INDICATIONS: headache, very hi BP TECHNIQUE: Noncontrast 4.5 mm thick angled axial sections acquired from the foramen magnum to the vertex, with coronal and sagittal reformats. For radiation dose reduction, the following was used: automated exposure control, adjustment of mA and/or kV according to patient size. COMPARISON: None. FINDINGS: Image quality: Diagnostic. CSF spaces: Basal cisterns are patent. No extra-axial fluid collections. Ventricles are normal in size and shape. Brain: No midline shift. No intracranial mass effect or hemorrhage. Wallace- white matter interface is normal. Skull and face: Calvarium and visualized facial bones are intact, without suspicious lesions. Sinuses: Changes of functional sinus surgery. Mucosal thickening in the remnant left anterior ethmoid air cells. The mastoid air cells are clear. IMPRESSION: No acute intracranial pathology. Changes of functional sinus surgery with mucosal opacification of the right FN remnant left anterior ethmoid air cells concerning for persistent chronic sinusitis. Dictated by: Duane Gipson M.D. on 11/30/2024 at 0:54 Approved by: Duane Gipson M.D. on 11/30/2024 at 0:55
--- NOTE | 2024-11-29 23:48 | EKG_ITS ---
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
--- NOTE | 2024-11-29 23:48 | DI.RAD.S_ITS ---
PROCEDURE: XR CHEST 1V INDICATIONS: hi BP, eval mediastinum TECHNIQUE: One view of the chest was acquired. COMPARISON: [facility], CR, XR CHEST 1V, 10/16/2023, 2:39. [facility], CR, XR CHEST 2V, 06/02/2023, 15:22. FINDINGS: Surgical changes and devices: None. Lungs and pleura: Moderate lung volumes with corresponding increased prominence of the interstitial markings. No pleural effusions or pneumothorax. Mediastinum: Mediastinal contours appear normal. Heart size is normal. Bones and chest wall: No suspicious bony lesions. Overlying soft tissues appear unremarkable. Inferior cervical fusion plate. IMPRESSION: Moderate lung volumes with corresponding increased prominence of the interstitial markings which may be secondary to low inspiratory volume versus mild interstitial edema. Dictated by: Duane Gipson M.D. on 11/30/2024 at 0:55 Approved by: Duane Gipson M.D. on 11/30/2024 at 0:56
[2024-11-30] VITALS (12 sets, daily range): BP systolic 168–215; BP diastolic 77–95; PULSE 58–66; RESP 16–23; O2SAT 92–97
[2024-11-30 00:10] LABS: Add Manual Diff / Slide Review NO; Hematocrit 40.4 % (41-53); Hemoglobin 13.8 g/dL (13.5-17.5); Lymphocytes Absolute Auto 1100 /uL (1100-4500); Mean Corpuscular HGB Conc 34.2 % (30-36); Mean Corpuscular Hemoglobin 28.9 PG (26-34); Mean Corpuscular Volume 84.4 fL (80-100); Platelet Count 193 X10^3/uL (150-400)
--- NOTE | 2024-11-30 00:17 | PC.NURSE ---
Pt to imaging via ED stretcher with soil technician
[2024-11-30 00:19] LABS: Alanine Aminotransferase 38 IU/L (<50); Albumin 4.0 g/dL (3.5-5.0); Albumin Globulin Ratio 1.7 (1.0-2.8); Alkaline Phosphatase 72 U/L (38-126); Blood Urea Nitrogen 15 mg/dL (9-20); Calcium 9.2 mg/dL (8.4-10.2); Carbon Dioxide 28 mmol/L (22-32); Chloride 103 mmol/L (98-107); Estimated Glomerular Filt Rate > 60 mL/min (>60); Globulin 2.3 g/dL (1.7-4.1); Glucose 170 mg/dL (70-99); HEMOLYSIS < 15 (0-50); Lipase 75 U/L (23-300); Magnesium 2.0 mg/dL (1.6-2.3); Potassium 3.9 mmol/L (3.4-5.1); Sodium 136 mmol/L (137-145); Total Protein 6.3 g/dL (6.3-8.2)
[2024-11-30 00:31] LABS: NT-proBNP (BNP-Adult 18+) 70 pg/mL (<125); Troponin I < 0.012 ng/mL (0.01-0.034)
--- NOTE | 2024-11-30 01:06 | ED.GENADULT ---
HPI - General Adult General Chief complaint: Hypertension Stated complaint: HBP 206/106, headache Time Seen by Provider: 11/29/24 23:46 Source: patient Mode of arrival: Ambulatory History of Present Illness HPI narrative: 74-year-old male with history of hypertension, sinus problems with multiple prior sinus surgeries although none recent, complains of headache and elevated blood pressures. Denies chest pain shortness of breath. Denies nausea or vomiting, diaphoresis. Denies fevers or chills. Moves neck well, no photophobia. No injury trauma new activities. No focal weakness to face arm or leg. No focal numbness to face arm or leg. Denies use of blood thinner medications. Related Data Home Medications ?Medication ?Instructions ?Recorded ?Confirmed atorvastatin 40 mg tablet (Lipitor) 40 mg PO BEDTIME 01/27/18 03/02/23 acetaminophen 500 mg tablet 1,000 mg PO TID PRN pain 12/25/18 03/02/23 (Tylenol Extra Strength) cetirizine 10 mg tablet 10 mg PO DAILY 03/02/23 03/02/23 hydrochlorothiazide 25 mg tablet 25 mg PO DAILY 03/02/23 03/02/23 olopatadine 0.1 % eye drops 2 drp EYE-BOTH DAILY PRN Eye 03/02/23 03/02/23 Irritation omeprazole 20 mg capsule,delayed 20 mg PO BID 03/02/23 03/02/23 release sildenafil 50 mg tablet 50 mg PO DAILY 03/02/23 03/02/23 tamsulosin 0.4 mg capsule 0.8 mg PO DAILY 03/02/23 03/02/23 telmisartan 80 mg tablet 80 mg PO DAILY 03/02/23 03/02/23 Previous Rx's ?Medication ?Instructions ?Recorded lidocaine 5 % topical patch 1 patch topical DAILY PRN pain #15 05/03/19 ea gabapentin 300 mg capsule 300 mg PO .COMPLEX #90 caps 01/07/20 meloxicam 7.5 mg tablet 7.5 mg PO BID inflammatory pain 01/07/20 #60 tabs albuterol sulfate 2.5 mg/3 mL 2.5 mg (3 mL) INH RTQ4HR PRN 01/17/21 (0.083 %) solution for nebulization Shortness Of Breath Or Wheezing #40 mL albuterol sulfate 90 mcg/actuation 1 puff inhalation PRN PRN 01/17/21 aerosol inhaler Shortness Of Breath #1 g cholecalciferol (vitamin D3) 25 1,000 unit PO DAILY #60 tabs 01/17/21 mcg (1,000 unit) tablet fluticasone 500 mcg-salmeterol 50 2 puff INH BIDRT #1 ea 01/17/21 mcg/dose blistr powdr for inhalation (Advair Diskus) ipratropium 0.5 mg-albuterol 3 mg 3 ml INH [id number] PRN Shortness Of 01/17/21 (2.5 mg base)/3 mL nebulization Breath Or Wheezing #60 mL soln losartan 25 mg tablet 25 mg PO DAILY #30 tabs 01/17/21 melatonin 3 mg tablet 6 mg (2 x 3 mg) PO BEDTIME #60 tabs 01/17/21 metoprolol succinate 50 mg capsule 50 mg PO DAILY #60 ea 01/17/21 sprinkle, ext. release 24 hr multivitamin-iron 9 mg-folic acid 1 tab PO DAILY #30 tabs 01/17/21 400 mcg-calcium and minerals tablet (Thera M Plus (ferrous fumarate)) trazodone 100 mg tablet 100 mg PO BEDTIME #60 tabs 01/17/21 zinc sulfate 50 mg zinc (220 mg) 220 mg (4.4 x 50 mg zinc (220 mg)) 01/17/21 capsule PO DAILY #60 caps lidocaine 5 % topical patch 1 patch topical DAILY #15 ea 06/02/23 prednisone 20 mg tablet 40 mg (2 x 20 mg) PO DAILY #10 tabs 10/16/23 cyclobenzaprine 5 mg tablet 5 mg PO TID PRN muscle spasm #30 11/14/24 tabs lidocaine 5 % topical patch 1 patch topical DAILY #30 ea 11/14/24 (Lidoderm) Allergies Allergy/AdvReac Type Severity Reaction Status Date / Time sulfamethoxazole (From Allergy Severe rash and Verified 11/29/24 23:46 SEPT) swelling trimethoprim (From ) Allergy Severe rash and Verified 11/29/24 23:46 swelling Penicillins (PENICILLINS) Allergy Unknown rash and Verified 11/29/24 23:46 swelling shellfish derived AdvReac Mild Swelling Verified 11/29/24 23:46 of Lip/Tongue/Throat Patient History Medical History Cervical facet syndrome Cervical radiculopathy at C7 Chronic radicular cervical pain Brachial plexopathy Tendinopathy of left rotator cuff Surgical History Status post cervical spinal fusion Family History Other Medical history non-contributory Social History household members: spouse Smoking Status: Never smoker alcohol intake: never additional social history: Never smoker, no ETOH Smoking Status: Never smoker alcohol intake frequency: holidays/special occasions only Exam Narrative Exam Narrative: GENERAL: Well-developed patient, in mild distress. HEAD: Atraumatic. Normocephalic. EYES: Pupils equal round and reactive. Extraocular motions intact. No scleral icterus. No injection or drainage. ENT: Nose without bleeding, purulent drainage. Throat without erythema, tonsillar hypertrophy or exudate. Airway patent. NECK: Trachea midline. Non tender CARDIOVASCULAR: Regular rate and rhythm without murmurs, gallops, or rubs. RESPIRATORY: Clear to auscultation. Breath sounds equal bilaterally. No wheezes, rales, or rhonchi. GASTROINTESTINAL: Abdomen soft, non-tender, nondistended. EXTREMITIES: No edema or joint tenderness. BACK: Nontender without deformity or crepitance. No flank tenderness. NEURO: AOx3. Motor functions grossly nonfocal. SKIN: No rash or erythema of visible areas Initial Vital Signs Initial Vital Signs: Vital Signs Temperature 98.7 F 11/29/24 23:46 Pulse Rate 62 11/29/24 23:46 Respiratory Rate 16 11/29/24 23:46 Blood Pressure 170/79 H 11/29/24 23:46 Pulse Oximetry 95 11/29/24 23:46 Oxygen Delivery Method Room Air 11/29/24 23:46 Course Orders Ordered: ED Orders 11/29/24 23:46 CT head/brain wo con Stat 11/29/24 23:48 XR chest 1V Stat Complete Blood Count AUTO DIFF Stat EKG-12 Lead Stat 11/29/24 23:55 Comprehensive Metabolic Panel Stat [facility] Creatine Kinase MB Routine Lipase Stat Magnesium Stat NT-proBNP (BNP-Adult 18+) Stat Troponin I Stat 11/30/24 02:00 Trop I [Troponin I] Stat Vital Signs Vital signs: Vital Signs - 8 hr 11/29/24 23:46 11/30/24 00:07 11/30/24 00:08 Temperature 98.7 F Pulse Rate 62 64 66 Respiratory Rate 16 16 17 Blood Pressure 170/79 H Pulse Oximetry 95 94 94 Oxygen Delivery Method Room Air Room Air Room Air 11/30/24 00:08 11/30/24 00:30 11/30/24 00:30 Temperature Pulse Rate 63 Respiratory Rate 22 Blood Pressure 215/95 H 193/82 H Pulse Oximetry 94 Oxygen Delivery Method Room Air 11/30/24 01:00 11/30/24 01:01 11/30/24 01:01 Temperature Pulse Rate 65 63 Respiratory Rate 17 17 Blood Pressure 168/77 H Pulse Oximetry 92 93 Oxygen Delivery Method Room Air Room Air 11/30/24 01:30 11/30/24 01:30 11/30/24 02:00 Temperature Pulse Rate 60 Respiratory Rate 19 Blood Pressure 171/81 H 193/93 H Pulse Oximetry 94 Oxygen Delivery Method Room Air 11/30/24 02:00 11/30/24 02:30 11/30/24 02:30 Temperature Pulse Rate 62 59 L Respiratory Rate 23 18 Blood Pressure 174/81 H Pulse Oximetry 96 93 Oxygen Delivery Method Room Air Room Air 11/30/24 03:00 11/30/24 03:01 11/30/24 03:01 Temperature Pulse Rate 64 65 Respiratory Rate 16 17 Blood Pressure 213/93 H Pulse Oximetry 93 95 Oxygen Delivery Method Room Air Room Air 11/30/24 03:30 11/30/24 03:31 11/30/24 03:31 Temperature Pulse Rate 58 L 59 L Respiratory Rate 16 17 Blood Pressure 174/77 H Pulse Oximetry 97 97 Oxygen Delivery Method Room Air Room Air Medical Decision Making Lab Data Lab results reviewed: Yes I reviewed the patient's lab results. Lab results narrative: White blood cell count 6900, hemoglobin 13.8, platelets normal. Glucose 170. Renal function, serum CO2, potassium level normal. Sodium 136 mild low. Liver functions and lipase negative. Troponin negative/unmeasurable x2 interval sets. 11/29/24 23:48 11/29/24 23:55 Labs: Lab Results 11/29/24 11/29/24 11/30/24 Range/Units 23:48 23:55 02:00 WBC 6.9 (4.5-11.0) X10^3/uL RBC 4.79 (4.5-5.9) X10^6/uL Hgb 13.8 (13.5-17.5) g/dL Hct 40.4 L (41-53) % MCV 84.4 (80-100) fL MCH 28.9 (26-34) PG MCHC 34.2 (30-36) % RDW 14.1 (11.6-14.8) % Plt Count 193 (150-400) X10^3/uL Neut % (Auto) 70.8 (50-75) % Lymph % (Auto) 15.8 L (25-40) % [place] % (Auto) 9.6 (3-14) % Eos % (Auto) 3.5 (2-4) % Baso % (Auto) 0.3 (0-2) % Neut # (Auto) 4900 (6848-5672) /uL Lymph # (Auto) 1100 (6432-0649) /uL [place] # (Auto) 700 (0-900) /uL Eos # (Auto) 200 (0-450) /uL Baso # (Auto) 0 (0-100) /uL Sodium 136 L (137-145) mmol/L Potassium 3.9 (3.4-5.1) mmol/L Chloride 103 (98-107) mmol/L Carbon Dioxide 28 (22-32) mmol/L BUN 15 (9-20) mg/dL Creatinine 1.20 (0.66-1.25) mg/dL Estimated GFR > 60 (>60) mL/min BUN/Creatinine Ratio 12.5 (6-22) Glucose 170 H (70-99) mg/dL Calcium 9.2 (8.4-10.2) mg/dL Magnesium 2.0 (1.6-2.3) mg/dL Total Bilirubin 0.7 (0.2-1.3) mg/dL AST 29 (17-59) IU/L ALT 38 (<50) IU/L Alkaline Phosphatase 72 (38-126) U/L Troponin I < 0.012 < 0.012 (0.01-0.034) ng/mL NT-Pro-B Natriuret Pep 70 (<125) pg/mL Total Protein 6.3 (6.3-8.2) g/dL Albumin 4.0 (3.5-5.0) g/dL Globulin 2.3 (1.7-4.1) g/dL Albumin/Globulin Ratio 1.7 (1.0-2.8) Lipase 75 (23-300) U/L Imaging Data Chest x-ray: Radiologist's Impression: [address] [address] XRay Report Signed Patient: Nadia Agee MR#: [id number] : 1950 Acct:[id number] Age/Sex: 74 / M Date of Service: 11/29/24 Loc: ED Accession Number: [id number] Procedure: XR chest 1V Ordering Provider: Theron Carrasco MD PROCEDURE: XR CHEST 1V INDICATIONS: hi BP, eval mediastinum TECHNIQUE: One view of the chest was acquired. COMPARISON: [facility], CR, XR CHEST 1V, 10/16/2023, 2:39. [facility], CR, XR CHEST 2V, 06/02/2023, 15:22. FINDINGS: Surgical changes and devices: None. Lungs and pleura: Moderate lung volumes with corresponding increased prominence of the interstitial markings. No pleural effusions or pneumothorax. Mediastinum: Mediastinal contours appear normal. Heart size is normal. Bones and chest wall: No suspicious bony lesions. Overlying soft tissues appear unremarkable. Inferior cervical fusion plate. IMPRESSION: Moderate lung volumes with corresponding increased prominence of the interstitial markings which may be secondary to low inspiratory volume versus mild interstitial edema. Dictated by: Duane Gipson M.D. on 11/30/2024 at 0:55 Approved by: Duane Gipson M.D. on 11/30/2024 at 0:56 CT scan - head: Radiologist's Impression: thoprim, Penicillins, shellfish derived [address] [address] [address] Scan Report Signed Patient: Nadia Agee MR#: [id number] : 1950 Acct:[id number] Age/Sex: 74 / M Date of Service: 11/29/24 Loc: ED Accession Number: [id number] Procedure: CT head/brain wo con Ordering Provider: Theron Carrasco MD PROCEDURE: CT HEAD/BRAIN WO CON INDICATIONS: headache, very hi BP TECHNIQUE: Noncontrast 4.5 mm thick angled axial sections acquired from the foramen magnum to the vertex, with coronal and sagittal reformats. For radiation dose reduction, the following was used: automated exposure control, adjustment of mA and/or kV according to patient size. COMPARISON: None. FINDINGS: Image quality: Diagnostic. CSF spaces: Basal cisterns are patent. No extra-axial fluid collections. Ventricles are normal in size and shape. Brain: No midline shift. No intracranial mass effect or hemorrhage. Wallcae-white matter interface is normal. Skull and face: Calvarium and visualized facial bones are intact, without suspicious lesions. Sinuses: Changes of functional sinus surgery. Mucosal thickening in the remnant left anterior ethmoid air cells. The mastoid air cells are clear. IMPRESSION: No acute intracranial pathology. Changes of functional sinus surgery with mucosal opacification of the right FN remnant left anterior ethmoid air cells concerning for persistent chronic sinusitis. Dictated by: Duane Gipson M.D. on 11/30/2024 at 0:54 Approved by: Duane Gipson M.D. on 11/30/2024 at 0:55 ECG Data Attestation: I personally reviewed and interpreted this ECG as follows: Interpretation: 0005, normal sinus rhythm with rate of 66, no obvious ST segment elevation or depression changes. MI 128, QRS 112, QTC 396. MDM Narrative Medical decision making narrative: 74-year-old male with headache and elevated blood pressures. Nonfocal neuro exam. Blood pressure improved without specific treatment. Patient had taken Tylenol prior to coming in, headache seemed to be better. Consider headache and associated increased blood pressure due to pain. CT head ordered after triage. Labs pending. Chest x-ray without lobar infiltrates, see radiology report. CT head noncontrast, no acute changes. Old postoperative sinus surgical changes noted. See radiology report. Lab data: White blood cell count 6900, hemoglobin 13.8, platelets normal. Glucose 170. Renal function, serum CO2, potassium level normal. Sodium 136 mild low. Liver functions and lipase negative. Troponin negative/unmeasurable x2 interval sets. Patient feels better, we would like to go home, discharged home with . Advised recheck of blood pressure with PCP on Tuesday. Advised to continue current medication regimen. Return precautions discussed. Discharge Plan Departure Patient Disposition: Home Clinical Impression: Headache, Hypertension Instructions: DI for High Blood Pressure Activity Restrictions/Additional Instructions: History of high blood pressure. Sinus problems status post multiple sinus surgeries. Tylenol taken for headache prior to arrival, blood pressure medications taken yesterday morning regular doses. Headache symptoms improved. Initial blood pressure elevated on triage, CT scan head showed no acute changes, blood pressure improved. EKG and serial blood tests not suggestive of heart attack at this time. Further workup as an outpatient for now. Follow up with your regular doctor Tuesday for reassessment of blood pressure. Recheck this/nearest emergency department for any change worsening symptoms or any concerns prior Prescriptions: No Action ipratropium-albuterol 0.5 mg-3 mg(2.5 mg base)/3 mL Solution For Nebulization 3 ml INH [id number] PRN (Reason: Shortness Of Breath Or Wheezing) Qty: 60 2RF albuterol sulfate 2.5 mg /3 mL (0.083 %) Solution For Nebulization 2.5 mg INH RTQ4HR PRN (Reason: Shortness Of Breath Or Wheezing) Qty: 40 0RF cholecalciferol (vitamin D3) 25 mcg (1,000 unit) Tablet 1,000 unit PO DAILY Qty: 60 2RF melatonin 3 mg Tablet 6 mg PO BEDTIME Qty: 60 2RF trazodone 100 mg Tablet 100 mg PO BEDTIME Qty: 60 2RF zinc sulfate 50 mg zinc (220 mg) Capsule 220 mg PO DAILY Qty: 60 2RF Thera M Plus (ferrous fumarat) 9 mg iron-400 mcg Tablet 1 tab PO DAILY Qty: 30 2RF metoprolol succinate 50 mg capsule,sprinkle,ER 24hr 50 mg PO DAILY Qty: 60 2RF losartan 25 mg Tablet 25 mg PO DAILY Qty: 30 2RF fluticasone propion-salmeterol [Advair Diskus] 500 MCG/50 MCG blister with device 2 puff INH BIDRT Qty: 1 0RF albuterol sulfate 90 mcg/actuation HFA aerosol inhaler 1 puff Inhalation PRN PRN (Reason: Shortness Of Breath) Qty: 1 0RF sildenafil 50 mg tablet 50 mg PO DAILY cetirizine 10 mg tablet 10 mg PO DAILY tamsulosin 0.4 mg capsule 0.8 mg PO DAILY olopatadine 0.1 % drops 2 drp EYE-BOTH DAILY PRN (Reason: Eye Irritation) Patient Comments: [NO ORIGINAL SIG] telmisartan 80 mg tablet 80 mg PO DAILY omeprazole 20 mg capsule,delayed release(DR/EC) 20 mg PO BID hydrochlorothiazide 25 mg tablet 25 mg PO DAILY lidocaine 5 % adhesive patch,medicated 1 patch topical DAILY Qty: 15 0RF Rx Instructions: leave on most painful area for up to 12 hrs prednisone 20 mg tablet 40 mg PO DAILY Qty: 10 0RF lidocaine 5 % adhesive patch,medicated 1 patch TOP DAILY PRN (Reason: pain) Qty: 15 0RF Rx Instructions: leave on most painful area for up to 12 hrs lidocaine [Lidoderm] 5 % adhesive patch,medicated 1 patch topical DAILY Qty: 30 0RF Rx Instructions: leave on most painful area for up to 12 hrs cyclobenzaprine 5 mg tablet 5 mg PO TID PRN (Reason: muscle spasm) Qty: 30 0RF atorvastatin [Lipitor] 40 mg tablet 40 mg PO BEDTIME acetaminophen [Tylenol Extra Strength] 500 mg tablet 1,000 mg PO TID PRN (Reason: pain) meloxicam 7.5 mg tablet 7.5 mg PO BID Qty: 60 5RF gabapentin 300 mg capsule 300 mg PO .COMPLEX Qty: 90 2RF Rx Instructions: 1-2 PO Tid to begin at HS and titrate to pain relief Referrals: Arron Orlando DO [Primary Care Provider, Family Practice] Stand Alone Forms: Patient Portal/API
[2024-11-30 03:26] LABS: Troponin I < 0.012 ng/mL (0.01-0.034)
[2024-12-02 05:11] LABS: Labcorp Creatine Kinase MB 4.8 ng/mL (0.0-10.4)
== END 2024-11-30 03:47 | disposition home or self-care (01) ==
PROVIDERS: Emergency Provider Emergency Medicine; Family Provider Internal Medicine; PCP Family Medicine
DX: I10 Essential (primary) hypertension (principal); R51.9 Headache, unspecified
CPT/HCPCS: 36415; 70450; 71045; 80053; 82553; 83690; 83735; 83880; 84484; 85025; 93005; 99284